=== PATIENT | male | born 1940 | race Caucasian/White ===

== ENCOUNTER 2016-07-10 06:16 | Day surgery (SDC) | payer OTHER, MEDICARE ==
[2016-07-09 11:21] VITALS: BMI 30.7
--- NOTE | 2016-07-09 16:45 | HP ---
- Patient Scheduled date of Surgery: 07/10/16 Scheduled Surgical Procedure: Phacoemulsification and cataract extraction with PCIOL Affected Eye: Left Chief Complaint (Indication for surgery): Decreased vision affecting ADLs (ohtn) - Ocular History Other Eye History: Other Eye Medications: vigamox tid OS, alphagan p bID OU Previous Eye Surgery: none - Medical History Illnesses: Cardiac Disorders (Chest pain, SOB, [place], Valve disease) (s/p CABG), Hypercholesterolemia, Diabetes Current Medications: Ambulatory Orders Aspirin 81 mg PO DAILY 01/09/14 Carvedilol 25 mg PO BID tablet 01/09/14 Insulin Glargine,Hum.rec.anlog [Lantus] 60 unit SQ DAILY vial 01/09/14 Tamsulosin HCl [Flomax] 0.4 mg PO BID 01/09/14 Atorvastatin Ca [Lipitor] 20 mg PO HS 07/09/16 Cyclobenzaprine HCl [Flexeril -] 10 mg PO TID 07/09/16 Docusate Sodium [Stool Softener] 50 mg PO BID 07/09/16 Hydrocodone/Acetaminophen [Vicodin Es 7.5-300 mg Tablet] 1 each PO Q6H PRN 07/09 Insulin Lispro [Humalog] 100 unit SQ DAILY 07/09/16 Lisinopril [Prinivil -] 40 mg PO DAILY 07/09/16 Lorazepam 0.5 mg PO PRN 07/09/16 Polyethylene Glycol 3350 [Miralax (For Daily Use) -] 17 gm PO DAILY PRN Allergies/Adverse Reactions: Allergies Allergy/AdvReac Type Severity Reaction Status Date / Time No Known Allergies Allergy Unverified 01/09/14 12:00 Ocular Examination - Best Corrected Visual Acuity Distance: Right eye: 20/50 Distance: Left eye: 20/50 - External/Slit Lamp Examination Abnormalities: dermatochalais - Intraocular Pressure Intraocular Pressure - Right eye: 16 Intraocular Pressure-Left eye: 16 - Lens Lens: 3+ NS trace PSC - Vitreous/Retina Vitreous/Retina: C:D 0.4 m/v/p wnl - Special Examination M - Right eye: -1.25-1.25 x 105 M - Left eye: -1.75- 2.00 x 075 K - Right eye: 43.25/44/75 x 15 K - Left eye: 43.25/43.75 x 170 AL - Right eye: 23.5o AL - Left eye: 23.72 IOL bag: +20.0d hoya 251 IOL sulcus: +19.0 d hoya 231 IOL AC: +17.0 d MTA 4uo - Impression Impression: Cataract Left Eye - Plan Plan: Phacoemulsification and cataract extraction - IOL Left eye (block due to anxiety) Post-hospital care will be provided in office on: 07/11/16
--- NOTE | 2016-07-09 16:57 | HP ---
History & Physical Update - History History: No Change - Physical Physical: No Change - Assessment Assessment: No Change - Plan Plan: No Change
[~2016-07-10 06:16] MED LIST: ACETAMINOPHEN 325 MG TABLET (FP) PO PRN
[2016-07-10] MEDS ORDERED: CIPROFLOXACIN HCL 0.3% OPHTH 2.5ML BOTTLE OP SCH (06:45)
[2016-07-10] MEDS: PHENYLEPHRINE 2.5% OPHTH SOLN 15 ML BOTTLE ONE ×3 (06:45→07:12)
[2016-07-10] MEDS ORDERED: TROPICAMIDE 1% OPHTH SOLN 15 ML BOTTLE OP SCH (06:45)
[2016-07-10] MEDS: MOXIFLOXACIN HCL 0.5% OPHTHALMIC 3 ML BOTTLE ONE ×3 (06:45→07:11)
[2016-07-10] MEDS ORDERED: DICLOFENAC SODIUM 0.1% OPHTHALMIC 2.5ML BOTTLE OP SCH (06:45)
[2016-07-10] MEDS ORDERED: PHENYLEPHRINE 2.5% OPHTH SOLN 15 ML BOTTLE OP SCH (06:45)
[2016-07-10] MEDS: TROPICAMIDE 1% OPHTH SOLN 15 ML BOTTLE ONE ×3 (06:45→07:12)
[2016-07-10] MEDS: DICLOFENAC SODIUM 0.1% OPHTHALMIC 2.5ML BOTTLE ONE ×3 (06:45→07:11)
[2016-07-10 07:15] VITALS: TEMP 97.8
[2016-07-10] MEDS ORDERED: TOBRAMYCIN/DEXAMETHASONE OPHTH. OINTMENT 1 TUBE ONE (07:20)
[2016-07-10] MEDS ORDERED: LIDOCAINE HCL/PF 1% SDV 5ML VIAL ONE (07:20)
[2016-07-10] MEDS ORDERED: EPINEPHrine/PF 1 MG/1 ML (1:1,000) AMPULE ONE ×2 (07:20→07:49)
[2016-07-10] MEDS ORDERED: BUPIVACAINE HCL/PF 0.75% 10 ML VIAL ONE (07:21)
[2016-07-10] MEDS ORDERED: LIDOCAINE HCL/PF 2% SDV 5ML VIAL ONE ×2 (07:21→07:27)
[2016-07-10] MEDS ORDERED: POVIDONE-IODINE 5% OPHTHALMIC PREP 30 ML SOLUTION ONE (07:21)
[2016-07-10] MEDS ORDERED: PROPOFOL 20 ML ONE ×2 (07:27)
[2016-07-10] MEDS ORDERED: MIDAZOLAM HCL 2 MG/2 ML SINGLE DOSE VIAL ONE (07:27)
[2016-07-10] MEDS ORDERED: BUPIVACAINE HCL/PF 0.75% 10 ML VIAL RB ONE (07:52)
[2016-07-10] MEDS ORDERED: LIDOCAINE HCL/PF 2% SDV 5ML VIAL INF ONE (07:52)
[2016-07-10] MEDS ORDERED: TETRACAINE 0.5% OPHTH SOLN 2 ML BOTTLE OS ONE (07:54)
[2016-07-10] MEDS ORDERED: POVIDONE-IODINE 5% OPHTHALMIC PREP 30 ML SOLUTION OS ONE (07:55)
[2016-07-10] MEDS ORDERED: TETRACAINE 0.5% OPHTH SOLN 2 ML BOTTLE ONE (07:55)
[2016-07-10] MEDS ORDERED: EPINEPHrine/PF 1 MG/1 ML (1:1,000) AMPULE SQ ONE (08:04)
[2016-07-10] MEDS ORDERED: CHONDROITIN SU A/HYALUR SOD 1 KIT IO ONE (08:04)
[2016-07-10] MEDS ORDERED: BSS (NA/CA/MG/K) BALANCED SALT SOLUTION OPHTH SOLN 15 ML BOTTLE OS ONE (08:04)
[2016-07-10] MEDS ORDERED: TOBRAMYCIN/DEXAMETHASONE OPHTH. OINTMENT 1 TUBE OS ONE (08:40)
--- NOTE | 2016-07-10 09:02 | OP ---
Ophthalmology Operative Note Pre-Operative Diagnosis: Cataract Affected Eye: Left Operation: Phacoemulsification and cataract extraction with PCIOL Findings: cataract os Post-Operative Diagnosis: Same as Pre-op Procedure Manager: Jose Anesthesiologist: Tricia Velasquez Anesthesia: Local, Retrobulbar Specimens Removed: none Estimated blood loss: <1 cc Drains & Tubes with Location: none Operative Report Dictated: No
[2016-07-10 12:49] VITALS: PULSE 73
[2016-07-10 12:54] VITALS: BP 134/60
--- NOTE | 2016-07-11 10:15 | OP ---
DATE OF OPERATION: PREOPERATIVE DIAGNOSIS: Cataract left eye. POSTOPERATIVE DIAGNOSIS: Cataract left eye. PROCEDURE: Phacoemulsification and cataract extraction with insertion of posterior chamber intraocular lens, left eye. SURGEON: Brook España MD SOURCING COORDINATOR: None. ANESTHESIA: Retrobulbar block. ANESTHESIOLOGIST: Tricia Velasquez MD OPERATIVE PROCEDURE: Following satisfactory intravenous sedation, the patient received local anesthesia using a 50/50 mixture of lidocaine 2% and Marcaine 0.75%. A Van Lint lid block was delivered to the left eye using 4 mL of the mixture in a retrobulbar injection using 4 mL of the mixture. The patient was then prepped and draped in the usual sterile fashion so as to expose only the left eye. Ophthalmic Betadine was instilled into the inferior fornix, and the lashes were taped out of the surgical field. An eyelid speculum was placed into the left eye. A paracentesis was made in inferior clear cornea at the limbus. Then 1 mL of dilute epinephrine 1:10,000 was injected into the anterior chamber to improve pupillary dilation. Viscoelastic material was then instilled into the anterior chamber via the paracentesis. A 2.4-mm keratome was then used to create the main incision in temporal clear cornea at the limbus. A continuous curvilinear capsulorrhexis was performed using a cystotome and Utrata forceps. Hyrodissection of the lens cortex was performed using BSS on a cannula until the nucleus was noted to be freely rotating. The phacoemulsification tip was then inserted via the main wound and used to sculpt 2 perpendicular grooves into the lens nucleus. Viscoat was injected into other grooves, and a nucleus cracker was used to crack the lens into 4 quadrants. Each quadrant was lifted out of the capsule into the iris plane and individually phacoemulsified. The remaining cortical material was then aspirated using the irrigation and aspiration port. The capsular bag was inflated using Provisc, and a preloaded Hoya lens model 251, power +20.0 was injected into the capsular bag, and it was centered using a Sinskey hook. The residual viscoelastic material was removed from the anterior chamber using irrigation and aspiration. The wound edges were hydrated using BSS. The wound was tested for leakage. It was found to be watertight. Therefore, Tobradex ointment was placed into the eye, and a speculum was removed from the eye, and the eyelid was closed. A sterile dressing and shield were placed over the eye, and the patient was transferred to the recovery room in stable condition and told to follow up in 1 day. BROOK ESPAÑA M.D. [id number]
== END 2016-07-10 10:30 | disposition home or self-care (01) ==
LOC: JASU-SURG 06:16
PROVIDERS: ATTEND Ophthalmology
PROC: 08RK3JZ Replacement of Left Lens with Synthetic Substitute, Percutaneous Approach (ICD-10-PCS; principal; 2016-07-10 07:30)
DX: H26.9 Unspecified cataract (principal)

== ENCOUNTER 2016-12-04 06:12 | Day surgery (SDC) | payer OTHER, MEDICARE ==
[2016-12-02 12:50] VITALS: BMI 30.7
--- NOTE | 2016-12-03 13:18 | HP ---
- Patient Scheduled date of Surgery: 12/04/16 Scheduled Surgical Procedure: Phacoemulsification and cataract extraction with PCIOL Affected Eye: Right Chief Complaint (Indication for surgery): Decreased vision affecting ADLs - Ocular History Other Eye History: Other (OHTN) Eye Medications: alphagan p , vigamox , ilevro Previous Eye Surgery: s/p ce/cpiol +20.o hoya block - Medical History Illnesses: Cardiac Disorders (Chest pain, SOB, [place], Valve disease) (s/p CABG, BPH ), Hypercholesterolemia, Diabetes Current Medications: Ambulatory Orders Aspirin 81 mg PO DAILY 01/09/14 Carvedilol 25 mg PO BID tablet 01/09/14 Insulin Glargine,Hum.rec.anlog [Lantus] 60 unit SQ DAILY vial 01/09/14 Tamsulosin HCl [Flomax] 0.4 mg PO BID 01/09/14 Atorvastatin Ca [Lipitor] 20 mg PO HS 07/09/16 Cyclobenzaprine HCl [Flexeril -] 10 mg PO TID 07/09/16 Docusate Sodium [Stool Softener] 50 mg PO BID 07/09/16 Hydrocodone/Acetaminophen [Vicodin Es 7.5-300 mg Tablet] 1 each PO Q6H PRN 07/09 Insulin Lispro [Humalog] 100 unit SQ DAILY 07/09/16 Lisinopril [Prinivil -] 40 mg PO DAILY 07/09/16 Lorazepam 0.5 mg PO PRN 07/09/16 Allergies/Adverse Reactions: Allergies Allergy/AdvReac Type Severity Reaction Status Date / Time No Known Allergies Allergy Unverified 12/02/16 12:32 Ocular Examination - Best Corrected Visual Acuity Distance: Right eye: 20/50 Distance: Left eye: 20/20 - External/Slit Lamp Examination Abnormalities: dermaotchalasis - Intraocular Pressure Intraocular Pressure - Right eye: 24 Intraocular Pressure-Left eye: 24 - Lens Lens: 3+ NS 1+ psc - Vitreous/Retina Vitreous/Retina: c:D 0.4 m/v/p wnl - Special Examination M - Right eye: -1.25-1.25 x 105 M - Left eye: plano -o.75 x 070 K - Right eye: 43.25/44 x 015 K - Left eye: 43.0 /43.5 x 160 AL - Right eye: 23.5 AL - Left eye: 23.72 IOL bag: +20.50 IOL sulcus: +19.50 IOL AC: +17.0 mta 4uo - Impression Impression: Cataract Right Eye - Plan Plan: Phacoemulsification and cataract extraction - IOL Right eye Post-hospital care will be provided in office on: 12/05/16
--- NOTE | 2016-12-03 13:44 | HP ---
History & Physical Update - History History: No Change - Physical Physical: No Change - Assessment Assessment: No Change - Plan Plan: No Change
[~2016-12-04 06:12] MED LIST changes: +TOBRAMYCIN/DEXAMETHASONE OPHTH. OINTMENT 1 TUBE OD ONE
[2016-12-04] MEDS ORDERED: PHENYLEPHRINE 2.5% OPHTH SOLN 15 ML BOTTLE ONE (06:35)
[2016-12-04] MEDS ORDERED: TROPICAMIDE 1% OPHTH SOLN 15 ML BOTTLE ONE (06:35)
[2016-12-04] MEDS ORDERED: CIPROFLOXACIN 0.3% EYE DROPS 5 ML BOTTLE ONE (06:35)
[2016-12-04] MEDS ORDERED: DICLOFENAC SODIUM 0.1% OPHTHALMIC 2.5ML BOTTLE ONE (06:35)
[2016-12-04 06:42] VITALS: TEMP 97.8
[2016-12-04] MEDS ORDERED: TROPICAMIDE 1% OPHTH SOLN 15 ML BOTTLE OP SCH (06:45)
[2016-12-04] MEDS ORDERED: PHENYLEPHRINE 2.5% OPHTH SOLN 15 ML BOTTLE OP SCH (06:45)
[2016-12-04] MEDS ORDERED: DICLOFENAC SODIUM 0.1% OPHTHALMIC 2.5ML BOTTLE OP SCH (06:45)
[2016-12-04] MEDS ORDERED: CIPROFLOXACIN HCL 0.3% OPHTH 2.5ML BOTTLE OP SCH (06:45)
[2016-12-04] MEDS ORDERED: TOBRAMYCIN/DEXAMETHASONE OPHTH. OINTMENT 1 TUBE ONE (07:04)
[2016-12-04] MEDS ORDERED: LIDOCAINE HCL/PF 1% SDV 5ML VIAL ONE (07:04)
[2016-12-04] MEDS ORDERED: EPINEPHrine/PF 1 MG/1 ML (1:1,000) AMPULE ONE (07:05)
[2016-12-04] MEDS ORDERED: LIDOCAINE HCL/PF 2% SDV 5ML VIAL ONE ×2 (07:19→07:29)
[2016-12-04] MEDS ORDERED: BUPIVACAINE HCL/PF 0.75% 10 ML VIAL ONE (07:19)
[2016-12-04] MEDS ORDERED: PROPOFOL 20 ML ONE ×2 (07:29)
[2016-12-04] MEDS ORDERED: MIDAZOLAM HCL 2 MG/2 ML SINGLE DOSE VIAL ONE (07:29)
[2016-12-04] MEDS ORDERED: LIDOCAINE HCL 2% (50ML VIAL) INF ONE (07:47)
[2016-12-04] MEDS ORDERED: BUPIVACAINE HCL/PF 0.75% 10 ML VIAL RB ONE (07:47)
[2016-12-04] MEDS ORDERED: BSS (NA/CA/MG/K) BALANCED SALT SOLUTION OPHTH SOLN 15 ML BOTTLE OD ONE (08:00)
[2016-12-04] MEDS ORDERED: CHONDROITIN SU A/HYALUR SOD 1 KIT IO ONE (08:00)
[2016-12-04] MEDS ORDERED: EPINEPHrine/PF 1 MG/1 ML (1:1,000) AMPULE SQ ONE ×2 (08:00→08:11)
[2016-12-04] MEDS ORDERED: TETRACAINE 0.5% OPHTH SOLN 2 ML BOTTLE OD ONE (08:00)
[2016-12-04] MEDS ORDERED: TOBRAMYCIN/DEXAMETHASONE OPHTH. OINTMENT 1 TUBE OD ONE (08:25)
--- NOTE | 2016-12-04 08:37 | OP ---
Ophthalmology Operative Note Pre-Operative Diagnosis: Cataract Affected Eye: Right Operation: Excision of Pterygium Findings: cataract right eye Post-Operative Diagnosis: Same as Pre-op Multigraph Operator: None Anesthesiologist: Tricia Velasquez Anesthesia: Local, Retrobulbar Specimens Removed: none Estimated blood loss: <1 cc Drains & Tubes with Location: none Operative Report Dictated: Yes
[2016-12-04 09:30] VITALS: BP 132/68; PULSE 88
--- NOTE | 2016-12-06 14:13 | OP ---
DATE OF OPERATION: 12/04/2016 PREOPERATIVE DIAGNOSIS: Cataract, right eye. POSTOPERATIVE DIAGNOSIS: Cataract, right eye. PROCEDURE: Phacoemulsification and cataract extraction with insertion of posterior chamber intraocular lens, right eye. SURGEON: Brook España MD SOCIAL SERVICES DIRECTOR: None. ANESTHESIA: Retrobulbar block. ANESTHESIOLOGIST: Tricia Velasquez MD OPERATIVE PROCEDURE: Following satisfactory intravenous sedation, the patient received local anesthesia using a 50/50 mixture of lidocaine 2% and Marcaine 0.75%. A Van Lint lid block was delivered to the right eye using 4 mL of the mixture in a retrobulbar injection using 4 mL of the mixture. The patient was then prepped and draped in the usual sterile fashion so as to expose only the right eye. Ophthalmic Betadine was instilled into the inferior fornix, and the lashes were taped out of the surgical field. An eyelid speculum was placed into the right eye. A paracentesis was made in superotemporal clear cornea at the limbus. Then, 1 mL of dilute epinephrine 1:10,000 was injected into the anterior chamber to improve pupillary dilation. Viscoelastic material was instilled in the anterior chamber via the paracentesis. A 2.4-mm keratome was then used to create the main incision in temporal clear cornea at the limbus. A continuous curvilinear capsulorrhexis was performed using a cystotome and Utrata forceps. Hydrodissection of the lens cortex was performed using BSS on a cannula until the nucleus was noted to be freely rotating. The phacoemulsification tip was then inserted via the main wound and used to sculpt 2 perpendicular grooves into the lens nucleus. The nucleus was cracked into 4 instruments, and each quadrant was lifted out of the capsule into the iris plane and individually phacoemulcified. The remaining cortical material was then aspirated using the irrigation and aspiration port. The capsular bag was inflated using Provisc and a preloaded Hoya lens, power +20.5 diopters was injected into the capsular bag and centered using a Sinskey hook. The residual viscoelastic material was removed from the anterior chamber using irrigation and aspiration. The wound edges were hydrated using BSS. The wound was tested for leakage. It was found to be watertight. Therefore, TobraDex ointment was placed in the eye, the speculum was removed from the eye, and the eyelid was closed. A sterile dressing and shield were placed over the eye, and the patient was transferred to the recovery room in stable condition, told to follow up in 1 day. BROOK ESPAÑA M.D. [id number]
== END 2016-12-04 09:41 | disposition home or self-care (01) ==
LOC: JASU-SURG 06:12
PROVIDERS: ATTEND Ophthalmology
PROC: 08RJ3JZ Replacement of Right Lens with Synthetic Substitute, Percutaneous Approach (ICD-10-PCS; principal; 2016-12-04 07:30)
DX: H26.9 Unspecified cataract (principal)

== ENCOUNTER 2019-02-28 16:49 | Inpatient (IN) | payer OTHER, MEDICARE ==
[2019-02-28 18:04] LABS: BASO % 1.3 % (0-2.0); EOS % 0.1 % (0-4.5); HEMATOCRIT 41.7 % (35.4-49); HEMOGLOBIN 13.8 GM/dL (11.7-16.9); LYMPH % 20.8 % (8-40); MCH 29.7 pg (25.7-33.7); MCHC 33.2 g/dl (32.0-35.9); MEAN CELL VOLUME 89.4 fl (80-96); MEAN PLT VOLUME 9.8 fl (7.5-11.1); MONO % 5.5 % (3.8-10.2); NEUT % 72.3 % (42.8-82.8); PLATELET COUNT 297 K/MM3 (134-434); RBC 4.66 M/mm3 (4.00-5.60); RDW 13.7 % (11.9-15.9); WHITE BLOOD COUNT 9.9 K/mm3 (4.0-10.0)
[2019-02-28] MEDS ORDERED: ASPIRIN 81 MG CHEWABLE TABLETS PO ONE (18:16)
--- NOTE | 2019-02-28 18:17 | PDOC ---
History of Present Illness - General Chief Complaint: Irregular Heart Beat Stated Complaint: Cardiac Dysrhythmia Time Seen by Provider: 02/28/19 17:25 History Source: Patient - History of Present Illness Initial Comments: 02/28/19 18:12 79 yo M PMH unspecified cardiac arrhythmia, HTN, HLD, CAD s/p triple bypass, IDDM, COPD, CHF, presenting with SOB. Patient is poor historian. States that he has been feeling increasingly SOB over the last month, went to see his PCP Dr. Nguyen to get refill of home nebulizer treatment. Reportedly was "pale and the oxygen level in my blood was off", leading to patient being sent to the ED. Specifically denies CP, N/V, dizziness, abdominal pain, diaphoresis, fevers/ chills. Does state that he has had increased swelling in his legs, L>R, but this has been present over the past month. Reportedly scanned and without clot, however, patient does not remember last time this was checked. Past History - Past Medical History Allergies/Adverse Reactions: Allergies Allergy/AdvReac Type Severity Reaction Status Date / Time No Known Allergies Allergy Unverified 02/28/19 17:02 Home Medications: Ambulatory Orders Aspirin 81 mg PO DAILY 01/09/14 Carvedilol 25 mg PO BID tablet 01/09/14 Insulin Glargine,Hum.rec.anlog [Lantus] 60 unit SQ DAILY vial 01/09/14 Tamsulosin HCl [Flomax] 0.4 mg PO BID 01/09/14 Atorvastatin Ca [Lipitor] 20 mg PO HS 07/09/16 Cyclobenzaprine HCl [Flexeril -] 10 mg PO TID 07/09/16 Hydrocodone/Acetaminophen [Vicodin Es 7.5-300 mg Tablet] 1 each PO Q6H PRN 07/09 Insulin Lispro [Humalog] 50 unit SQ DAILY 07/09/16 Lisinopril [Prinivil -] 40 mg PO DAILY 07/09/16 Tiotropium [place] [Spiriva] 18 mcg IH BID 02/28/19 Anemia: No Asthma: No Cancer: No (CAD) Cardiac Disorders: Yes (TRIPLE BYPASS SURGERY 2005) CVA: No COPD: No CHF: No Dementia: No Diabetes: Yes (IDDM) GI Disorders: No Disorders: No HTN: No Hypercholesterolemia: No Liver Disease: No Seizures: No Thyroid Disease: No - Surgical History Cardiac Surgery: Yes (OPEN HEART SURGERY) - Immunization History Immunization Up to Date: Yes - Psycho Social/Smoking Cessation Hx Smoking History: Former smoker Have you smoked in the past 12 months: No If you are a former smoker, when did you quit?: 50 yrs ago Information on smoking cessation initiated: No Hx Alcohol Use: No Drug/Substance Use Hx: No Substance Use Type: None *Physical Exam - Vital Signs Last Vital Signs Temp Pulse Resp BP Pulse Ox 98.2 F 92 H 21 H 122/57 L 95 02/28/19 17:10 02/28/19 17:10 02/28/19 17:10 02/28/19 17:10 02/28/19 17:15 ED Treatment Course - LABORATORY CBC & Chemistry Diagram: 02/28/19 17:30 02/28/19 17:30 - RADIOLOGY Radiology Studies Ordered: Category Date Time Status CHEST X-RAY PORTABLE* [RAD] Stat Radiology 02/28/19 17:41 Ordered DUPLEX VASCUL US-2LEGS [US] Stat Ultrasound 02/28/19 17:41 Ordered Medical Decision Making - Medical Decision Making 02/28/19 17:30 Patient with multiple risk factors here with SOB. Concerning for ACS v COPD exacerbation v CHF exacerbation. - CBC, CMP - EKG, trop, pro BNP - CXR - coags - likely admit EKG at 89 bpm, sinus rhythm at frequent PVCs, appears to have prior inferior MN. 02/28/19 18:[address] Akins at [facility], EKG at PCP office reportedly concerning for old inferior wall MN, poor R wave progression, potentially ventricular bigeminy, normal sinus with multiple PVCs. PCP recorded patient as being hypoxic , pale, cyanotic, started on 3L NC with improvement. SOB without CP. 02/28/19 20:02 CXR elevated R hemidiaphragm, R infiltrate. US without DVT in either leg. 02/28/19 20:22 Elevated BNP, will give 40mg IV Lasix, get admitted for SOB and CHF exacerbation. 02/28/19 20:[address] Jacobsen, will get patient admitted under Dr. Primo Jacobsen. Discharge - Discharge Information Problems reviewed: Yes Clinical Impression/Diagnosis: SOB (shortness of breath), CHF exacerbation Condition: Guarded - Admission Yes - Follow up/Referral Referrals: Howard Nguyen MD [Primary Care Provider] - - Patient Discharge Instructions - Post Discharge Activity
[2019-02-28 18:25] LABS: INR 1.26 (0.83-1.09); PROTHROMBIN TIME (PATIENT) 14.9 SEC (9.7-13.0)
[2019-02-28 18:28] LABS: ACTIVATED PTT 33.9 SECONDS (25.2-36.5)
[2019-02-28 18:54] LABS: ALBUMIN 3.3 g/dl (3.4-5.0); ALK PHOS 95 U/L (45-117); ANION GAP 5 MMOL/L (8-16); BILIRUBIN,TOTAL 0.9 mg/dL (0.2-1); BLOOD UREA NITROGEN 15.7 mg/dL (7-18); CALCIUM 8.1 mg/dL (8.5-10.1); CHLORIDE 104 mmol/L (98-107); CO2 28 mmol/L (21-32); CREATININE 1.1 mg/dL (0.55-1.3); GLUCOSE,RANDOM 98 mg/dL (74-106); MAGNESIUM 2.1 mg/dL (1.8-2.4); PHOSPHOROUS 3.3 mg/dL (2.5-4.9); POTASSIUM 4.7 mmol/L (3.5-5.1); SGOT/AST 21 U/L (15-37); SGPT/ALT 26 U/L (13-61); SODIUM 137 mmol/L (136-145)
[2019-02-28] MEDS ORDERED: ASPIRIN 81 MG CHEWABLE TABLETS ONE (19:01)
--- NOTE | 2019-02-28 19:24 | PDOC ---
Attending Attestation - Resident Resident Name: Haroldo Oliva - ED Attending Attestation I have performed the following: I have examined & evaluated the patient, The case was reviewed & discussed with the resident, I agree w/resident's findings & plan, Exceptions are as noted - HPI HPI: 02/28/19 19:21 79 yo male h/o HTN, HLD, CAD cabg IDDM, COPD, here with c/o palpitations. pt was seen by his primary doctor and sent for evaluation for irregularity, possible afib. denies cp but does report sob. has had worsening leg edema. no mod factors. 02/28/19 19:21 - Physicial Exam PE: 02/28/19 19:20 awake alert lungs clear bilat heart irreg reg, abd soft nt nd ext wwp no edema. nuero alert oriente d x 3. 02/28/19 19:20 02/28/19 19:21 - Medical Decision Making 02/28/19 19:22 79 yo male h/o htn hld copd, cabg cad, here with palpitations and sob. worsening leg edema. plan las bnp ekg cxr trop . will likley require admission to telemetry. pt EKG with bigeminyk, trigeminy. no st t wave changes. labs pending. signed out to oncoming physician, will admit. aspirin 02/28/19 19:24 bilat dopplers ordered r/o dvt. were negative. Heart Score/ECG Review #1 General ECG Interpretation: Sinus Rhythm, Normal Intervals, No acute ischemic changes Compared to previous ECG there are: Other (bigeminy, trigeminy frequent pvc. TWI III, AF.)
[2019-02-28] MEDS ORDERED: FUROSEMIDE 40 MG/4 ML INJECTABLE VIAL IVPUSH ONE (19:58)
[2019-02-28] MEDS ORDERED: FUROSEMIDE 40 MG/4 ML INJECTABLE VIAL ONE (20:08)
--- NOTE | 2019-02-28 21:50 | HP ---
Admitting History and Physical - Primary Care Physician PCP: Dr. Jacobsen - Admission Chief Complaint: Irregular heart beat, SOB History of Present Illness: 79 year old male with PMH of unspecified cardiac arrhythmia, HTN, HLD, CAD s/p triple bypass, IDDM, COPD, CHF arrived to ED with complain SOB, as per patient SOB has been getting worse over the course of month, went to see PCP, Dr. Akins at [facility], EKG at PCP office reportedly concerning for old inferior wall AK, poor R wave progression, potentially ventricular bigeminy, normal sinus with multiple PVCs. Patient at clinic became hypoxic, pale, cyanotic, started on 3L NC with improvement. Patient denies CP, N/V, dizziness, headache, abdominal pain, diaphoresis, fevers/chills. History Source: Patient Limitations to Obtaining History: No Limitations - Past Medical History Cardiovascular: Yes: CAD (s/p triple bypass,), CHF, HTN, Hyperlipdemia, Other ( cardiac arrhythmia) Pulmonary: Yes: COPD Renal/: Yes: BPH Endocrine: Yes: Diabetes Mellitus - Past Surgical History Past Surgical History: Yes: Bypass (TRIPLE BYPASS SURGERY 2005) - Smoking History Smoking history: Former smoker Have you smoked in the past 12 months: No If you are a former smoker, when did you quit?: 50 yrs ago - Alcohol/Substance Use Hx Alcohol Use: No History of Substance Use: reports: None - Social History ADL: Independent History of Recent Travel: No Home Medications - Allergies Allergies/Adverse Reactions: Allergies Allergy/AdvReac Type Severity Reaction Status Date / Time No Known Allergies Allergy Unverified 02/28/19 17:02 - Home Medications Home Medications: Ambulatory Orders Aspirin 81 mg PO DAILY 01/09/14 Carvedilol 25 mg PO BID tablet 01/09/14 Insulin Glargine,Hum.rec.anlog [Lantus] 60 unit SQ DAILY vial 01/09/14 Tamsulosin HCl [Flomax] 0.4 mg PO BID 01/09/14 Atorvastatin Ca [Lipitor] 20 mg PO HS 07/09/16 Cyclobenzaprine HCl [Flexeril -] 10 mg PO TID 07/09/16 Hydrocodone/Acetaminophen [Vicodin Es 7.5-300 mg Tablet] 1 each PO Q6H PRN 07/09 Insulin Lispro [Humalog] 50 unit SQ DAILY 07/09/16 Lisinopril [Prinivil -] 40 mg PO DAILY 07/09/16 Tiotropium [place] [Spiriva] 18 mcg IH BID 02/28/19 Family Medical History Family Hx Cardiac Disorders: Father (h/o [place]) Family Hx Nuerologic Problems: Mother ([place] ) Review of Systems - Review of Systems Constitutional: reports: No Symptoms Eyes: reports: No Symptoms HENT: reports: No Symptoms Neck: reports: No Symptoms Cardiovascular: reports: No Symptoms Respiratory: reports: SOB, SOB on Exertion Gastrointestinal: reports: No Symptoms Genitourinary: reports: No Symptoms Musculoskeletal: reports: No Symptoms Integumentary: reports: No Symptoms Neurological: reports: No Symptoms Endocrine: reports: No Symptoms Hematology/Lymphatic: reports: No Symptoms Psychiatric: reports: No Symptoms Physical Examination Vital Signs: Vital Signs Temperature 98.2 F 02/28/19 17:10 Pulse Rate 90 02/28/19 20:00 Respiratory Rate 21 H 02/28/19 17:10 Blood Pressure 125/60 02/28/19 20:00 O2 Sat by Pulse Oximetry (%) 95 02/28/19 17:15 Constitutional: Yes: Calm, Mild Distress Eyes: Yes: Conjunctiva Clear, EOM Intact HENT: Yes: Atraumatic, Normocephalic Neck: Yes: Supple, Trachea Midline Cardiovascular: Yes: Pulse Irregular, S1 Respiratory: Yes: Regular, On Nasal O2, Rales, SOB Gastrointestinal: Yes: Normal Bowel Sounds, Soft Musculoskeletal: Yes: WNL Edema: No Peripheral Pulses WNL: Yes Neurological: Yes: Alert, Oriented Labs: CBC, BMP 02/28/19 17:30 02/28/19 17:30 Imaging - Results Chest X-ray: Report Reviewed (CXR elevated R hemidiaphragm, R infiltrate.) Ultrasound: Report Reviewed (US B/l LE: without DVT .) EKG: Report Reviewed (EKG at PCP office reportedly concerning for old inferior wall AK, poor R wave progression, potentially ventricular bigeminy, normal sinus with multiple PVCs. EKG at 89 bpm, sinus rhythm at frequent PVCs, appears to have prior inferior AK. Trop: negative) Other: Report Reviewed (BNP:6583.6) Problem List - Problems (1) Acute CHF Code(s): I50.9 - HEART FAILURE, UNSPECIFIED (2) SOB (shortness of breath) Code(s): R06.02 - SHORTNESS OF BREATH (3) HTN (hypertension) Code(s): I10 - ESSENTIAL (PRIMARY) HYPERTENSION (4) HLD (hyperlipidemia) Code(s): E78.5 - HYPERLIPIDEMIA, UNSPECIFIED (5) Cardiac arrhythmia Code(s): I49.9 - CARDIAC ARRHYTHMIA, UNSPECIFIED (6) CAD (coronary artery disease) Code(s): I25.10 - ATHSCL HEART DISEASE OF [place] CORONARY ARTERY W/O ANG PCTRS (7) Diabetes Code(s): E11.9 - TYPE 2 DIABETES MELLITUS WITHOUT COMPLICATIONS (8) COPD (chronic obstructive pulmonary disease) Code(s): J44.9 - CHRONIC OBSTRUCTIVE PULMONARY DISEASE, UNSPECIFIED Assessment/Plan 79 year old male with PMH of unspecified cardiac arrhythmia, HTN, HLD, CAD s/p triple bypass, IDDM, COPD, CHF arrived to ED with complain SOB, as per patient SOB has been getting worse over the course of month,went to PMD who sent to ED for further evaluation. # ACUTE CHF exacerbation -CXR elevated R hemidiaphragm, R infiltrate. -US b/l LE: without DVT -Elevated BNP:6583.6 -In ED:given 40mg IV Lasix - continue with O2 via NC - Fluids restriction - Monitor I & O - continue with lasix 40 mg IV push daily - follow up cardiology in AM #cardiac arrhythmia # HTN, HLD, CAD s/p triple bypas - EKG at PCP office reportedly concerning for old inferior wall [place], poor R wave progression, potentially ventricular bigeminy, normal sinus with multiple PVCs. - At hospital EKG at 89 bpm, sinus rhythm at frequent PVCs, appears to have prior inferior AK. - tele monitoring - Carvedilol 25 mg PO BID - Lisinopril 40 mg PO DAILY - Atorvastatin Ca 20 mg PO HS - monitor BP/HR closely #DM -monitor FSBS TID AC -coverage with Novolog sliding scale -continue with Levemir 30 units at HS # COPD - Tiotropium [place] 18 mcg IH BID # BPH - Tamsulosin HCl 0.4 mg PO BID Visit type - Emergency Visit Emergency Visit: Yes ED Registration Date: 02/28/19 Care time: The patient presented to the Emergency Department on the above date and was hospitalized for further evaluation of their emergent condition. - New Patient This patient is new to me today: Yes Date on this admission: 02/28/19 - Critical Care Critical Care patient: No
[2019-02-28] MEDS ORDERED: PATIENT'S OWN MEDICATION (NON-FORMULARY) (Hydrocodone/Acetaminophen [Vicodin Es 7.5-300 Mg PO PRN (22:34)
[2019-02-28] MEDS ORDERED: ACETAMINOPHEN 325 MG TABLET (FP) PO PRN (22:35)
[2019-03-01] MEDS ORDERED: CYCLOBENZAPRINE HCL 10 MG TABLET (FP) ONE (06:32)
[2019-03-01] MEDS: CYCLOBENZAPRINE HCL 10 MG TABLET (FP) PO SCH ×3 (06:40→21:04)
[2019-03-01 06:42] LABS: HEMATOCRIT 41.1 % (35.4-49); HEMOGLOBIN 14.1 GM/dL (11.7-16.9); MCH 30.5 pg (25.7-33.7); MCHC 34.4 g/dl (32.0-35.9); MEAN CELL VOLUME 88.8 fl (80-96); MEAN PLT VOLUME 9.8 fl (7.5-11.1); PLATELET COUNT 266 K/MM3 (134-434); RBC 4.63 M/mm3 (4.00-5.60); RDW 13.7 % (11.9-15.9); WHITE BLOOD COUNT 9.7 K/mm3 (4.0-10.0)
[2019-03-01] MEDS: INSULIN SLIDING SCALE (NOVOLOG) 1 VIAL SQ SCH ×3 (07:01→17:08)
[2019-03-01 07:10] LABS: BLOOD UREA NITROGEN 14.1 mg/dL (7-18); CALCIUM 8.8 mg/dL (8.5-10.1)
[2019-03-01] MEDS ORDERED: TAMSULOSIN HCL 0.4 MG CAP PO SCH (08:30)
[2019-03-01] MEDS ORDERED: CARVEDILOL 25 MG TABLET (FP) PO SCH (10:00)
[2019-03-01] MEDS ORDERED: TIOTROPIUM BROMIDE 2.5 MCG (SPIRIVA) RESPIMAT INHALER IH SCH (10:00)
[2019-03-01] MEDS ORDERED: LISINOPRIL 20 MG TABLET (FP) PO SCH (10:00)
[2019-03-01] MEDS ORDERED: FUROSEMIDE 40 MG/4 ML INJECTABLE VIAL IVPUSH SCH (10:00)
[2019-03-01] MEDS ORDERED: HEPARIN NA (PORCINE) 5,000 UNITS/ML 1ML VIAL SQ SCH (10:00)
--- NOTE | 2019-03-01 10:43 | PN ---
Progress Note (short form) - Note Progress Note: pt examined in ER no distress feels well after lasix Vital Signs - 24 hr 02/28/19 02/28/19 02/28/19 17:00 17:10 17:15 Temperature 97.9 F 98.2 F Pulse Rate 66 Pulse Rate [ 92 H Left Radial] Respiratory 20 21 H Rate Blood Pressure 139/60 Blood Pressure 122/57 L [Right Arm] O2 Sat by Pulse 91 L 88 L 95 Oximetry (%) 02/28/19 02/28/19 03/01/19 20:00 22:35 06:30 Temperature Pulse Rate Pulse Rate [ 90 88 Left Radial] Respiratory 20 Rate Blood Pressure Blood Pressure 125/60 125/62 [Right Arm] O2 Sat by Pulse 95 Oximetry (%) Current Medications Generic Name Dose Route Start Last Admin Trade Name Freq PRN Reason Stop Dose Admin Acetaminophen 650 mg 02/28/19 22:35 Tylenol - PO Q4H PRN PAIN OR FEVER Atorvastatin Calcium 20 mg 03/01/19 22:00 Lipitor - PO HS [facility] Carvedilol 25 mg 03/01/19 10:00 Coreg - PO BID [facility] Cyclobenzaprine HCl 10 mg 03/01/19 06:00 03/01/19 06:40 Flexeril - PO 10 mg TID [facility] Administration Furosemide 40 mg 03/01/19 10:00 Lasix Injection - IVPUSH DAILY [facility] Heparin Sodium (Porcine) 5,000 unit 03/01/19 22:00 Heparin - SQ BID [facility] Insulin Aspart 1 vial 03/01/19 07:00 03/01/19 07:01 Novolog Vial Sliding Scale - SQ Not Given TIDAC [facility] Protocol Insulin Detemir 30 units 03/01/19 22:00 Levemir Vial SQ HS [facility] Lisinopril 40 mg 03/01/19 10:00 Prinivil PO DAILY [facility] Tamsulosin HCl 0.4 mg 03/01/19 08:30 03/01/19 08:39 Flomax - PO 0.4 mg Q12H [facility] Administration Tiotropium [place] 2 puff 03/01/19 10:00 Spiriva Respimat IH DAILY [facility] Laboratory Results - last 24 hr 02/28/19 02/28/19 02/28/19 17:30 17:30 17:30 WBC 9.9 RBC 4.66 Hgb 13.8 Hct 41.7 MCV 89.4 MCH 29.7 MCHC 33.2 RDW 13.7 Plt Count 297 MPV 9.8 Absolute Neuts (auto) 7.2 Neutrophils % 72.3 Lymphocytes % 20.8 Monocytes % 5.5 Eosinophils % 0.1 Basophils % 1.3 Nucleated RBC % 0 PT with INR 14.90 H INR 1.26 H PTT (Actin FS) 33.9 Sodium 137 Potassium 4.7 Chloride 104 Carbon Dioxide 28 Anion Gap 5 L BUN 15.7 Creatinine 1.1 Est GFR (CKD-EPI)AfAm 73.09 Est GFR (CKD-EPI)NonAf 63.07 POC Glucometer Random Glucose 98 Calcium 8.1 L Phosphorus 3.3 Magnesium 2.1 Total Bilirubin 0.9 AST 21 ALT 26 Alkaline Phosphatase 95 Troponin I < 0.02 B-Natriuretic Peptide Total Protein 6.0 L Albumin 3.3 L 02/28/19 02/28/19 02/28/19 17:30 18:16 22:50 WBC RBC Hgb Hct MCV MCH MCHC RDW Plt Count MPV Absolute Neuts (auto) Neutrophils % Lymphocytes % Monocytes % Eosinophils % Basophils % Nucleated RBC % PT with INR INR PTT (Actin FS) Sodium Potassium Chloride Carbon Dioxide Anion Gap BUN Creatinine Est GFR (CKD-EPI)AfAm Est GFR (CKD-EPI)NonAf POC Glucometer 74 179 Random Glucose Calcium Phosphorus Magnesium Total Bilirubin AST ALT Alkaline Phosphatase Troponin I B-Natriuretic Peptide 6583.6 H Total Protein Albumin 03/01/19 03/01/19 03/01/19 04:43 06:11 06:11 WBC 9.7 RBC 4.63 Hgb 14.1 Hct 41.1 MCV 88.8 MCH 30.5 MCHC 34.4 RDW 13.7 Plt Count 266 MPV 9.8 Absolute Neuts (auto) Neutrophils % Lymphocytes % Monocytes % Eosinophils % Basophils % Nucleated RBC % PT with INR INR PTT (Actin FS) Sodium 138 Potassium 4.0 Chloride 103 Carbon Dioxide 26 Anion Gap 8 BUN 14.1 Creatinine 1.0 Est GFR (CKD-EPI)AfAm 82.02 Est GFR (CKD-EPI)NonAf 70.77 POC Glucometer 113 Random Glucose 99 Calcium 8.8 Phosphorus Magnesium Total Bilirubin AST ALT Alkaline Phosphatase Troponin I B-Natriuretic Peptide Total Protein Albumin 03/01/19 03/01/19 06:37 12:12 WBC RBC Hgb Hct MCV MCH MCHC RDW Plt Count MPV Absolute Neuts (auto) Neutrophils % Lymphocytes % Monocytes % Eosinophils % Basophils % Nucleated RBC % PT with INR INR PTT (Actin FS) Sodium Potassium Chloride Carbon Dioxide Anion Gap BUN Creatinine Est GFR (CKD-EPI)AfAm Est GFR (CKD-EPI)NonAf POC Glucometer 94 171 Random Glucose Calcium Phosphorus Magnesium Total Bilirubin AST ALT Alkaline Phosphatase Troponin I B-Natriuretic Peptide Total Protein Albumin Assessment/Plan 79 year old male with PMH of unspecified cardiac arrhythmia, HTN, HLD, CAD s/p triple bypass, IDDM, COPD, CHF arrived to ED with complain SOB, as per patient SOB has been getting worse over the course of month,went to PMD who sent to ED for further evaluation. # ACUTE CHF exacerbation -CXR elevated R hemidiaphragm, R infiltrate. -US b/l LE: without DVT -Elevated BNP:6583.6 -In ED:given 40mg IV Lasix - continue with O2 via NC - Fluids restriction - Monitor I & O - continue with lasix 40 mg IV push daily - follow up cardiology in AM #cardiac arrhythmia # HTN, HLD, CAD s/p triple bypas - EKG at PCP office reportedly concerning for old inferior wall PA, poor R wave progression, potentially ventricular bigeminy, normal sinus with multiple PVCs. - At hospital EKG at 89 bpm, sinus rhythm at frequent PVCs, appears to have prior inferior PA. - tele monitoring - Carvedilol 25 mg PO BID - Lisinopril 40 mg PO DAILY - Atorvastatin Ca 20 mg PO HS - monitor BP/HR closely #DM -monitor FSBS TID AC -coverage with Novolog sliding scale -continue with Levemir 30 units at HS # COPD - Tiotropium [place] 18 mcg IH BID # BPH - Tamsulosin HCl 0.4 mg PO BID
--- NOTE | 2019-03-01 12:05 | CON.CARD ---
Consult Consult Specialty:: Cardiology Referred by:: Medicine Reason for Consultation:: CHF - History of Present Illness Chief Complaint: shortness of breath History of Present Illness: 79M h/o CAD s/p MS, CABG 2003 (BECKHAM to LAD, SVG to LCX, SVG to PDA), HTN, HLD, DM p/w shortness of breath, abnormal EKG. Reportedly had chornic dyspnea on exertion which is worse in the last month. Sees Dr. Herrera for cardio. Saw PCP yesterday, EKG showed old MS, bigeminy, frequent PVCs. At office looked hypoxic, pale, started on O2 and sent to ER. Received IV lasix, feeling better. Also has lower ext edema, not sure how long. - Past Medical History Cardio/Vascular: Yes: CAD (s/p triple bypass,), CHF, HTN, Hyperlipdemia, Other ( cardiac arrhythmia) Pulmonary: Yes: COPD Renal/: Yes: BPH Endocrine: Yes: Diabetes Mellitus - Past Surgical History Past Surgical History: Yes: Bypass (TRIPLE BYPASS SURGERY 2005) - Alcohol/Substance Use Hx Alcohol Use: No History of Substance Use: reports: None - Smoking History Smoking history: Former smoker Have you smoked in the past 12 months: No If you are a former smoker, when did you quit?: 50 yrs ago - Social History ADL: Independent History of Recent Travel: No Home Medications - Allergies Allergies/Adverse Reactions: Allergies Allergy/AdvReac Type Severity Reaction Status Date / Time No Known Allergies Allergy Unverified 02/28/19 17:02 - Home Medications Home Medications: Ambulatory Orders Aspirin 81 mg PO DAILY 01/09/14 Carvedilol 25 mg PO BID tablet 01/09/14 Insulin Glargine,Hum.rec.anlog [Lantus] 60 unit SQ DAILY vial 01/09/14 Tamsulosin HCl [Flomax] 0.4 mg PO BID 01/09/14 Atorvastatin Ca [Lipitor] 20 mg PO HS 07/09/16 Cyclobenzaprine HCl [Flexeril -] 10 mg PO TID 07/09/16 Hydrocodone/Acetaminophen [Vicodin Es 7.5-300 mg Tablet] 1 each PO Q6H PRN 07/09 Insulin Lispro [Humalog] 50 unit SQ DAILY 07/09/16 Lisinopril [Prinivil -] 40 mg PO DAILY 07/09/16 Tiotropium [place] [Spiriva] 18 mcg IH BID 02/28/19 Family Medical History Family History: Unremarkable Review of Systems - Review of Systems Constitutional: reports: No Symptoms Eyes: reports: No Symptoms HENT: reports: No Symptoms Neck: reports: No Symptoms Cardiovascular: reports: No Symptoms Respiratory: reports: No Symptoms Gastrointestinal: reports: No Symptoms Genitourinary: reports: No Symptoms Musculoskeletal: reports: No Symptoms Integumentary: reports: No Symptoms Neurological: reports: No Symptoms Endocrine: reports: No Symptoms Hematology/Lymphatic: reports: No Symptoms Psychiatric: reports: No Symptoms Vital Signs: Vital Signs Temperature 98.2 F 02/28/19 17:10 Pulse Rate 88 03/01/19 06:30 Respiratory Rate 20 02/28/19 22:35 Blood Pressure 125/62 03/01/19 06:30 O2 Sat by Pulse Oximetry (%) 95 02/28/19 22:35 Constitutional: Yes: No Distress, Calm Eyes: Yes: Conjunctiva Clear, EOM Intact HENT: Yes: Atraumatic, Normocephalic Neck: Yes: Supple, Trachea Midline Respiratory: Yes: Regular, CTA Bilaterally Gastrointestinal: Yes: Normal Bowel Sounds, Soft Cardiovascular: Yes: Pulse Irregular JVD: No Heart Sounds: Yes: S1, S2 Extremities: No: Cold Edema: Yes Edema: LLE: 1+, RLE: 1+ Integumentary: No: Jaundice Neurological: Yes: Alert, Oriented Psychiatric: No: Agitated - Other Data Labs, Other Data: CBC, BMP 03/01/19 06:11 03/01/19 06:11 INR, PTT INR 1.26 (0.83-1.09) H 02/28/19 17:30 Troponin, BNP 02/28/19 02/28/19 17:30 17:30 Troponin I < 0.02 B-Natriuretic Peptide 6583.6 H Troponin, BNP 02/28/19 02/28/19 17:30 17:30 Troponin I < 0.02 B-Natriuretic Peptide 6583.6 H Assessment/Plan echo 03/2018 low nl LVEF, mild inferior hypokinesis, nl RV, mild LAE, mild AR mibi 2007 inf MS, mildly reduced LV function, no ischemia tele: sinus, frequent PVCs, PACs EKG: sinus, PVCs, old inferior infarct acute systolic HF exacerbation - echo ordered - cont IV lasix - monitor Cr, lytes, daily weights CAD - cont statin, bb, ACEI, aspirin frequent PVCs - echo ordered - cont bb DM - manage per primary COPD - manage per primary
[2019-03-01] MEDS ORDERED: INSULIN (NOVOLOG) ASPART 100 UNITS/ML 10ML VIAL ONE (12:47)
--- NOTE | 2019-03-01 14:19 | EKG ---
Test Reason : Blood Pressure : / mmHG Vent. Rate : 089 BPM Atrial Rate : 089 BPM P-R Int : 146 ms QRS Dur : 116 ms QT Int : 384 ms P-R-T Axes : -03 012 -28 degrees QTc Int : 467 ms SINUS RHYTHM WITH FREQUENT PREMATURE VENTRICULAR COMPLEXES POSSIBLE INFERIOR INFARCT (CITED ON OR BEFORE 08-SEP-2003) ABNORMAL ECG WHEN COMPARED WITH ECG OF 12-JAN-2007 09:44, PREMATURE VENTRICULAR COMPLEXES ARE NOW PRESENT QUESTIONABLE CHANGE IN QRS AXIS Confirmed by MD Robert, Fei ([id number]) on 03/01/2019 2:19:04 PM Referred By: Confirmed By:Fei Jones MD
[2019-03-01] MEDS ORDERED: ACETAMINOPHEN 325 MG TABLET (FP) PO PRN (14:59)
[2019-03-01] MEDS ORDERED: FLU VACCINE QUAD 60 MCG/0.5 ML (MDV 19-20) IM ONE (15:00)
[2019-03-01 15:36] VITALS: BMI 29.7
--- NOTE | 2019-03-01 16:34 | ECHO ---
Name: MASSIMO ANDERSON Exam:Adult Echocardiogram Study Date: 03/01/2019 02:24 PM Age: 79 yrs Reason For Study: EVALUATE CARDIAC FUNCTION Height: 71 in Weight: 219 lb BSA: 2.2 m2 MMode/2D Measurements & Calculations IVSd: 0.91 cm Ao root diam: 3.0 cm LVIDd: 5.7 cm LVIDs: 4.6 cm LVPWd: 0.89 cm EDV(Teich): 162.8 ml LVOT diam: 2.2 cm ESV(Teich): 99.6 ml Doppler Measurements & Calculations MV E max rocio: 52.6 cm/sec Ao V2 max: 111.0 cm/sec MV A max rocio: 108.0 cm/sec Ao max P.9 mmHg MV E/A: 0.49 Ao V2 mean: 82.3 cm/sec MV dec time: 0.14 sec Ao mean P.0 mmHg Ao V2 VTI: 23.8 cm KEVIN(I,D): 2.7 cm2 AI P1/2t: 388.9 msec KEVIN(V,D): 2.5 cm2 AI max rocio: 250.7 cm/sec LV V1 max P.2 mmHg AI max P.3 mmHg LV V1 mean P.89 mmHg AI dec slope: 188.8 cm/sec2 LV V1 max: 74.0 cm/sec LV V1 mean: 43.3 cm/sec LV V1 VTI: 17.2 cm MR max rocio: 233.5 cm/sec SV(LVOT): 64.9 ml MR max P.8 mmHg TR max rocio: 252.0 cm/sec TR max P.4 mmHg Left Ventricle Normal size Moderate LV dysfunction EF 35 -39%. Right Ventricle Normal RV size and function. Atria The left atrium is mildly dilated. The right atrium is mildly dilated. Mitral Valve The mitral valve is grossly normal. Tricuspid Valve The tricuspid valve is not well visualized, but is grossly normal. There is mild tricuspid regurgitat ion. Aortic Valve The aortic valve is normal in structure and function. Mild aortic regurgitation. Pulmonic Valve The pulmonic valve is not well seen, but is grossly normal. Great Vessels The aortic root is normal size. Pericardium/Pleura There is no pericardial effusion. Interpretation Summary Normal size Moderate LV dysfunction EF 35 -39% Normal RV size and function The right atrium is mildly dilated. The mitral valve is grossly normal. The tricuspid valve is not well visualized, but is grossly normal. There is mild tricuspid regurgitation. The aortic valve is normal in structure and function. Mild aortic regurgitation. The pulmonic valve is not well seen, but is grossly normal. The aortic root is normal size. MD Fei Jones 03/01/2019 04:33 PM
[2019-03-01] MEDS: ATORVASTATIN CA 20 MG TABLET (FP) PO SCH (21:03)
[2019-03-01] MEDS: CARVEDILOL 25 MG TABLET (FP) PO SCH (21:04)
[2019-03-01] MEDS: HEPARIN NA (PORCINE) 5,000 UNITS/ML 1ML VIAL SQ SCH (21:04)
[2019-03-01] MEDS: TAMSULOSIN HCL 0.4 MG CAP PO SCH (21:04)
[2019-03-01] MEDS: INSULIN (LEVEMIR) 100 UNITS/ML UNITS SQ SCH (21:10)
[2019-03-01] MEDS ORDERED: INSULIN (LEVEMIR) 100 UNITS/ML UNITS SQ SCH (22:00)
[2019-03-01] MEDS ORDERED: APIXABAN 5 MG TABLET PO SCH (22:00)
[2019-03-01] MEDS ORDERED: ATORVASTATIN CA 20 MG TABLET (FP) PO SCH (22:00)
[2019-03-02] MEDS: CYCLOBENZAPRINE HCL 10 MG TABLET (FP) PO SCH ×3 (05:27→21:58)
[2019-03-02] MEDS: INSULIN SLIDING SCALE (NOVOLOG) 1 VIAL SQ SCH ×3 (06:09→18:15)
[2019-03-02] MEDS: LISINOPRIL 20 MG TABLET (FP) PO SCH ×2 (11:01→12:51)
[2019-03-02] MEDS: CARVEDILOL 25 MG TABLET (FP) PO SCH ×3 (11:02→22:00)
[2019-03-02] MEDS: FUROSEMIDE 40 MG/4 ML INJECTABLE VIAL IVPUSH SCH ×2 (11:02→16:04)
[2019-03-02] MEDS: HEPARIN NA (PORCINE) 5,000 UNITS/ML 1ML VIAL SQ SCH ×2 (11:02→21:58)
[2019-03-02] MEDS: TAMSULOSIN HCL 0.4 MG CAP PO SCH ×2 (11:02→21:57)
[2019-03-02 12:18] LABS: ALBUMIN 3.2 g/dl (3.4-5.0); BILIRUBIN,TOTAL 1.2 mg/dL (0.2-1); BLOOD UREA NITROGEN 15.9 mg/dL (7-18); CALCIUM 8.6 mg/dL (8.5-10.1); CREATININE 1.1 mg/dL (0.55-1.3); POTASSIUM 4.3 mmol/L (3.5-5.1); TOT PROT 6.2 g/dl (6.4-8.2)
[2019-03-02] MEDS ORDERED: CEFTRIAXONE 1 GM in DEXTROSE 5%-WATER - 50 ML IVPB ONE (12:48)
[2019-03-02] MEDS ORDERED: ALBUTEROL SO4 0.083% IH SOL 2.5 MG/3 ML VIAL.NEB. NEB PRN (12:52)
--- NOTE | 2019-03-02 12:52 | PN ---
Progress Note (short form) - Note Progress Note: pt examined in floors feels well spoke to daughter Vital Signs - 24 hr 03/01/19 03/01/19 03/01/19 14:00 14:20 16:30 Temperature 98.5 F 97.7 F Pulse Rate 87 89 Respiratory 18 20 Rate Blood Pressure 127/75 115/63 O2 Sat by Pulse 96 Oximetry (%) 03/01/19 03/01/19 03/01/19 20:40 21:00 22:00 Temperature 97.4 F L 98.3 F Pulse Rate 95 H 56 L Respiratory 21 H 20 Rate Blood Pressure 121/78 101/51 L O2 Sat by Pulse 90 L 93 L Oximetry (%) 03/02/19 07:32 Temperature 97.9 F Pulse Rate 85 Respiratory 20 Rate Blood Pressure 134/66 O2 Sat by Pulse Oximetry (%) Current Medications Generic Name Dose Route Start Last Admin Trade Name Freq PRN Reason Stop Dose Admin Acetaminophen 650 mg 03/01/19 14:59 Tylenol - PO Q4H PRN PAIN OR FEVER Atorvastatin Calcium 20 mg 03/01/19 22:00 03/01/19 21:03 Lipitor - PO 20 mg HS [facility] Administration Carvedilol 25 mg 03/01/19 22:00 03/02/19 11:02 Coreg - PO 25 mg BID [facility] Administration Cyclobenzaprine HCl 10 mg 03/01/19 22:00 03/02/19 05:27 Flexeril - PO 10 mg TID [facility] Administration Furosemide 40 mg 03/02/19 10:00 03/02/19 11:02 Lasix Injection - IVPUSH 40 mg DAILY [facility] Administration Heparin Sodium (Porcine) 5,000 unit 03/01/19 22:00 03/02/19 11:02 Heparin - SQ 5,000 unit BID [facility] Administration Insulin Aspart 1 vial 03/01/19 16:30 03/02/19 12:13 Novolog Vial Sliding Scale - SQ 2 units TIDAC [facility] Administration Protocol Insulin Detemir 30 units 03/01/19 22:00 03/01/19 21:10 Levemir Vial SQ 30 units HS [facility] Administration Lisinopril 40 mg 03/02/19 10:00 03/02/19 11:01 Prinivil PO 40 mg DAILY [facility] Administration Tamsulosin HCl 0.4 mg 03/01/19 20:30 03/02/19 11:02 Flomax - PO 0.4 mg Q12H [facility] Administration Tiotropium [place] 2 puff 03/02/19 10:00 Spiriva Respimat IH DAILY [facility] Laboratory Results - last 24 hr 03/01/19 03/01/19 03/01/19 12:30 17:05 21:09 Sodium Potassium Chloride Carbon Dioxide Anion Gap BUN Creatinine Est GFR (CKD-EPI)AfAm Est GFR (CKD-EPI)NonAf POC Glucometer 182 212 Random Glucose Calcium Total Bilirubin AST ALT Alkaline Phosphatase Creatine Kinase 68 Troponin I < 0.02 Total Protein Albumin 03/02/19 03/02/19 03/02/19 05:41 11:28 12:03 Sodium 138 Potassium 4.3 Chloride 102 Carbon Dioxide 30 Anion Gap 6 L BUN 15.9 Creatinine 1.1 Est GFR (CKD-EPI)AfAm 73.09 Est GFR (CKD-EPI)NonAf 63.07 POC Glucometer 97 179 Random Glucose 201 H Calcium 8.6 Total Bilirubin 1.2 H AST 13 L ALT 23 Alkaline Phosphatase 101 Creatine Kinase Troponin I Total Protein 6.2 L Albumin 3.2 L 79 year old male with PMH of unspecified cardiac arrhythmia, HTN, HLD, CAD s/p triple bypass, IDDM, COPD, CHF arrived to ED with complain SOB, as per patient SOB has been getting worse over the course of month,went to PMD who sent to ED for further evaluation. # ACUTE CHF exacerbation -CXR elevated R hemidiaphragm, R infiltrate. -US b/l LE: without DVT -Elevated BNP:6583.6 -40mg IV Lasix - continue with O2 via NC - Fluids restriction - Monitor I & O - continue with lasix 40 mg IV push daily #cardiac arrhythmia # HTN, HLD, CAD s/p triple bypas - EKG at PCP office reportedly concerning for old inferior wall NE, poor R wave progression, potentially ventricular bigeminy, normal sinus with multiple PVCs. - At hospital EKG at 89 bpm, sinus rhythm at frequent PVCs, appears to have prior inferior NE. - tele monitoring - Carvedilol 25 mg PO BID - Lisinopril 40 mg PO DAILY - Atorvastatin Ca 20 mg PO HS - monitor BP/HR closely - 24 hr holter ordered #DM -monitor FSBS TID AC -coverage with Novolog sliding scale -continue with Levemir 30 units at HS # COPD - Tiotropium [place] 18 mcg IH BID -- nebs as needed --repeat CXR in AM # BPH - Tamsulosin HCl 0.4 mg PO BID
[2019-03-02] MEDS ORDERED: DEXTROSE 5%-WATER - 50 ML IVPB ONE (14:47)
[2019-03-02] MEDS ORDERED: cefTRIAXone SODIUM 1 GM VIAL ONE (14:47)
[2019-03-02] MEDS: TIOTROPIUM BROMIDE 2.5 MCG (SPIRIVA) RESPIMAT INHALER IH SCH (14:50)
--- NOTE | 2019-03-02 15:45 | PN ---
Progress Note (short form) - Note Progress Note: s: no cp sob palps; mild dizzy when stands up Vital Signs Period Temp Pulse Resp BP Sys/Souza Pulse Ox Last 24 Hr 97.4 F-98.3 F 56-95 20-21 101-134/51-78 90-93 Constitutional: Yes: No Distress, Calm Eyes: Yes: Conjunctiva Neck: Yes: Supple, Trachea Midline Respiratory: Yes: Regular, CTA Bilaterally nl eff Gastrointestinal: Yes: Normal Bowel Sounds, Soft Cardiovascular: Yes: Pulse Irregular JVD: No Heart Sounds: Yes: S1, S2 Extremities: No: Cold Edema: Yes Edema: LLE: 1+, RLE: 1+ Integumentary: No: Jaundice Neurological: Yes: Alert, Oriented Psychiatric: No: Agitated Current Medications Generic Name Dose Route Start Last Admin Trade Name Freq PRN Reason Stop Dose Admin Acetaminophen 650 mg 03/01/19 14:59 Tylenol - PO Q4H PRN PAIN OR FEVER Albuterol Sulfate 1 amp 03/02/19 12:52 Ventolin 0.083% Nebulizer Soln - NEB Q6H PRN SHORT OF BREATH/WHEEZING Atorvastatin Calcium 20 mg 03/01/19 22:00 03/01/19 21:03 Lipitor - PO 20 mg HS [facility] Administration Carvedilol 25 mg 03/01/19 22:00 03/02/19 12:52 Coreg - PO Not Given BID [facility] Cyclobenzaprine HCl 10 mg 03/01/19 22:00 03/02/19 14:50 Flexeril - PO 10 mg TID [facility] Administration Furosemide 40 mg 03/02/19 10:00 03/02/19 11:02 Lasix Injection - IVPUSH 40 mg DAILY [facility] Administration Heparin Sodium (Porcine) 5,000 unit 03/01/19 22:00 03/02/19 11:02 Heparin - SQ 5,000 unit BID [facility] Administration Ceftriaxone Sodium 1 gm/ 50 mls @ 100 mls/hr 03/03/19 10:00 Dextrose IVPB DAILY [facility] Insulin Aspart 1 vial 03/01/19 16:30 03/02/19 12:13 Novolog Vial Sliding Scale - SQ 2 units TIDAC [facility] Administration Protocol Insulin Detemir 30 units 03/01/19 22:00 03/01/19 21:10 Levemir Vial SQ 30 units HS [facility] Administration Lisinopril 40 mg 03/02/19 10:00 03/02/19 12:51 Prinivil PO Not Given DAILY [facility] Tamsulosin HCl 0.4 mg 03/01/19 20:30 03/02/19 11:02 Flomax - PO 0.4 mg Q12H [facility] Administration Tiotropium [place] 2 puff 03/02/19 10:00 03/02/19 14:50 Spiriva Respimat IH 2 puff DAILY [facility] Administration CBC, BMP 03/01/19 06:11 03/02/19 11:28 Assessment/Plan echo 03/2018 low nl LVEF, mild inferior hypokinesis, nl RV, mild LAE, mild AR echo 02/2019: mod dec lvef, nl rv, [place], mild tr, mild ar mibi 2007 inf [place], mildly reduced LV function, no ischemia EKG: sinus, PVCs, old inferior infarct acute systolic HF exacerbation - vol status improving, cont IV lasix - monitor Cr, lytes, daily weights - echo here shows lvef lower than prior, possibly due to acute chf. repeat echo as outpt when vol status improved. - cont bb, norbert CAD - cont statin, bb, ACEI, aspirin DM - manage per primary COPD - manage per primary
[2019-03-02] MEDS: INSULIN (LEVEMIR) 100 UNITS/ML UNITS SQ SCH (21:59)
[2019-03-02] MEDS: ATORVASTATIN CA 20 MG TABLET (FP) PO SCH (21:59)
[2019-03-03] MEDS: INSULIN SLIDING SCALE (NOVOLOG) 1 VIAL SQ SCH ×3 (07:00→17:59)
[2019-03-03] MEDS: CYCLOBENZAPRINE HCL 10 MG TABLET (FP) PO SCH ×3 (07:01→21:47)
[2019-03-03] MEDS ORDERED: cefTRIAXone SODIUM 1 GM VIAL ONE (09:24)
[2019-03-03] MEDS ORDERED: DEXTROSE 5%-WATER - 50 ML IVPB ONE (09:25)
--- NOTE | 2019-03-03 10:46 | PN ---
Progress Note (short form) - Note Progress Note: pt examined no distress feels well after lasix Vital Signs - 24 hr 03/02/19 03/02/19 03/02/19 14:00 16:30 19:08 Temperature 98.1 F 97.6 F 97.7 F Pulse Rate 51 L 48 L 71 Respiratory 20 18 26 H Rate Blood Pressure 107/56 L 122/69 111/56 L O2 Sat by Pulse 95 Oximetry (%) 03/02/19 03/02/19 03/02/19 20:32 20:34 21:45 Temperature 97.9 F 98.1 F Pulse Rate 60 48 L Respiratory 26 H 20 24 H Rate Blood Pressure 139/52 L 135/48 L O2 Sat by Pulse 96 90 L Oximetry (%) 03/03/19 06:00 Temperature 98.7 F Pulse Rate 76 Respiratory 20 Rate Blood Pressure 152/100 O2 Sat by Pulse Oximetry (%) Current Medications Generic Name Dose Route Start Last Admin Trade Name Freq PRN Reason Stop Dose Admin Acetaminophen 650 mg 03/01/19 14:59 Tylenol - PO Q4H PRN PAIN OR FEVER Albuterol Sulfate 1 amp 03/02/19 12:52 Ventolin 0.083% Nebulizer Soln - NEB Q6H PRN SHORT OF BREATH/WHEEZING Atorvastatin Calcium 20 mg 03/01/19 22:00 03/02/19 21:59 Lipitor - PO 20 mg HS [facility] Administration Carvedilol 25 mg 03/01/19 22:00 03/02/19 22:00 Coreg - PO Not Given BID [facility] Cyclobenzaprine HCl 10 mg 03/01/19 22:00 03/03/19 07:01 Flexeril - PO 10 mg TID [facility] Administration Furosemide 40 mg 03/02/19 10:00 03/02/19 16:04 Lasix Injection - IVPUSH 40 mg DAILY [facility] Administration Heparin Sodium (Porcine) 5,000 unit 03/01/19 22:00 03/02/19 21:58 Heparin - SQ 5,000 unit BID [facility] Administration Ceftriaxone Sodium 1 gm/ 50 mls @ 100 mls/hr 03/03/19 10:00 Dextrose IVPB DAILY [facility] Insulin Aspart 1 vial 03/01/19 16:30 03/03/19 07:00 Novolog Vial Sliding Scale - SQ Not Given TIDAC [facility] Protocol Insulin Detemir 30 units 03/01/19 22:00 03/02/19 21:59 Levemir Vial SQ 30 units HS [facility] Administration Lisinopril 40 mg 03/02/19 10:00 03/02/19 12:51 Prinivil PO Not Given DAILY [facility] Tamsulosin HCl 0.4 mg 03/01/19 20:30 03/02/19 21:57 Flomax - PO 0.4 mg Q12H [facility] Administration Tiotropium [place] 2 puff 03/02/19 10:00 03/02/19 14:50 Spiriva Respimat IH 2 puff DAILY [facility] Administration Laboratory Results - last 24 hr 03/02/19 03/02/19 03/02/19 11:28 12:03 18:01 Sodium 138 Potassium 4.3 Chloride 102 Carbon Dioxide 30 Anion Gap 6 L BUN 15.9 Creatinine 1.1 Est GFR (CKD-EPI)AfAm 73.09 Est GFR (CKD-EPI)NonAf 63.07 POC Glucometer 179 196 Random Glucose 201 H Calcium 8.6 Total Bilirubin 1.2 H AST 13 L ALT 23 Alkaline Phosphatase 101 Total Protein 6.2 L Albumin 3.2 L 03/02/19 03/03/19 21:51 06:59 Sodium Potassium Chloride Carbon Dioxide Anion Gap BUN Creatinine Est GFR (CKD-EPI)AfAm Est GFR (CKD-EPI)NonAf POC Glucometer 181 71 Random Glucose Calcium Total Bilirubin AST ALT Alkaline Phosphatase Total Protein Albumin Intake & Output 02/28/19 03/01/19 03/02/19 03/03/19 23:59 23:59 23:59 23:59 Intake Total 200 100 Output Total 1400 Balance -1400 200 100 Weight 213 lb 1 oz 79 year old male with PMH of unspecified cardiac arrhythmia, HTN, HLD, CAD s/p triple bypass, IDDM, COPD, CHF arrived to ED with complain SOB, as per patient SOB has been getting worse over the course of month,went to PMD who sent to ED for further evaluation. # ACUTE CHF exacerbation -CXR elevated R hemidiaphragm, R infiltrate. -US b/l LE: without DVT -Elevated BNP:6583.6 -In ED:given 40mg IV Lasix - continue with O2 via NC - Fluids restriction - Monitor I & O - continue with lasix 40 mg IV push daily better low normal EF on echo OOB daily repeat CXR #cardiac arrhythmia # HTN, HLD, CAD s/p triple bypas - EKG at PCP office reportedly concerning for old inferior wall [place], poor R wave progression, potentially ventricular bigeminy, normal sinus with multiple PVCs. - At hospital EKG at 89 bpm, sinus rhythm at frequent PVCs, appears to have prior inferior [place]. - 24 hr holter monitoring in place-- remove today - Carvedilol 25 mg PO BID - Lisinopril 40 mg PO DAILY - Atorvastatin Ca 20 mg PO HS - monitor BP/HR closely #DM -monitor FSBS TID AC -coverage with Novolog sliding scale -continue with Levemir 30 units at HS # COPD - Tiotropium [place] 18 mcg IH BID # BPH - Tamsulosin HCl 0.4 mg PO BID CXR to be repeated today Ceftriaxone for questionable infiltrates on previous CXR-- repeating one today possible dc in AM in CXR better
[2019-03-03] MEDS: LISINOPRIL 20 MG TABLET (FP) PO SCH (10:59)
[2019-03-03] MEDS: TAMSULOSIN HCL 0.4 MG CAP PO SCH ×2 (10:59→21:47)
[2019-03-03] MEDS: FUROSEMIDE 40 MG/4 ML INJECTABLE VIAL IVPUSH SCH (11:00)
[2019-03-03] MEDS: HEPARIN NA (PORCINE) 5,000 UNITS/ML 1ML VIAL SQ SCH ×2 (11:00→21:47)
[2019-03-03] MEDS: CARVEDILOL 25 MG TABLET (FP) PO SCH ×2 (11:00→21:47)
[2019-03-03] MEDS: CEFTRIAXONE 1 GM in DEXTROSE 5%-WATER - 50 ML IVPB SCH (11:01)
[2019-03-03] MEDS: TIOTROPIUM BROMIDE 2.5 MCG (SPIRIVA) RESPIMAT INHALER IH SCH (11:05)
--- NOTE | 2019-03-03 11:42 | PN ---
Progress Note (short form) - Note Progress Note: s: no cp sob palps dizzy Vital Signs Period Temp Pulse Resp BP Sys/Souza Pulse Ox Last 24 Hr 97.6 F-98.7 F 48-76 18-26 107-152/48-100 90-96 Constitutional: Yes: No Distress, Calm Eyes: Yes: Conjunctiva Neck: Yes: Supple, Trachea Midline Respiratory: Yes: Regular, CTA Bilaterally nl eff Gastrointestinal: Yes: Normal Bowel Sounds, Soft Cardiovascular: Yes: Pulse Irregular JVD: No Heart Sounds: Yes: S1, S2 Extremities: No: Cold Edema: trace le edema bl Integumentary: No: Jaundice Neurological: Yes: Alert, Oriented Psychiatric: No: Agitated Current Medications Generic Name Dose Route Start Last Admin Trade Name Freq PRN Reason Stop Dose Admin Acetaminophen 650 mg 03/01/19 14:59 Tylenol - PO Q4H PRN PAIN OR FEVER Albuterol Sulfate 1 amp 03/02/19 12:52 Ventolin 0.083% Nebulizer Soln - NEB Q6H PRN SHORT OF BREATH/WHEEZING Atorvastatin Calcium 20 mg 03/01/19 22:00 03/02/19 21:59 Lipitor - PO 20 mg HS RIKKI Administration Carvedilol 25 mg 03/01/19 22:00 03/03/19 11:00 Coreg - PO 25 mg BID RIKKI Administration Cyclobenzaprine HCl 10 mg 03/01/19 22:00 03/03/19 07:01 Flexeril - PO 10 mg TID RIKKI Administration Furosemide 40 mg 03/02/19 10:00 03/03/19 11:00 Lasix Injection - IVPUSH 40 mg DAILY RIKIK Administration Heparin Sodium (Porcine) 5,000 unit 03/01/19 22:00 03/03/19 11:00 Heparin - SQ 5,000 unit BID RIKKI Administration Ceftriaxone Sodium 1 gm/ 50 mls @ 100 mls/hr 03/03/19 10:00 03/03/19 11:01 Dextrose IVPB 100 mls/hr DAILY RIKKI Administration Insulin Aspart 1 vial 03/01/19 16:30 03/03/19 07:00 Novolog Vial Sliding Scale - SQ Not Given TIDAC [facility] Protocol Insulin Detemir 30 units 03/01/19 22:00 03/02/19 21:59 Levemir Vial SQ 30 units HS RIKKI Administration Lisinopril 40 mg 03/02/19 10:00 03/03/19 10:59 Prinivil PO 40 mg DAILY RIKKI Administration Tamsulosin HCl 0.4 mg 03/01/19 20:30 03/03/19 10:59 Flomax - PO 0.4 mg Q12H RIKKI Administration Tiotropium [place] 2 puff 03/02/19 10:00 03/03/19 11:05 Spiriva Respimat IH 2 puff DAILY RIKKI Administration Laboratory Last Values WBC 9.7 K/mm3 (4.0-10.0) 03/01/19 06:11 RBC 4.63 M/mm3 (4.00-5.60) 03/01/19 06:11 Hgb 14.1 GM/dL (11.7-16.9) 03/01/19 06:11 Hct 41.1 % (35.4-49) 03/01/19 06:11 MCV 88.8 fl (80-96) 03/01/19 06:11 MCH 30.5 pg (25.7-33.7) 03/01/19 06:11 MCHC 34.4 g/dl (32.0-35.9) 03/01/19 06:11 RDW 13.7 % (11.9-15.9) 03/01/19 06:11 Plt Count 266 K/MM3 (134-434) 03/01/19 06:11 MPV 9.8 fl (7.5-11.1) 03/01/19 06:11 Absolute Neuts (auto) 7.2 K/mm3 (1.5-8.0) 02/28/19 17:30 Neutrophils % 72.3 % (42.8-82.8) 02/28/19 17:30 Lymphocytes % 20.8 % (8-40) 02/28/19 17:30 Monocytes % 5.5 % (3.8-10.2) 02/28/19 17:30 Eosinophils % 0.1 % (0-4.5) 02/28/19 17:30 Basophils % 1.3 % (0-2.0) 02/28/19 17:30 Nucleated RBC % 0 % (0-0) 02/28/19 17:30 PT with INR 14.90 SEC (9.7-13.0) H 02/28/19 17:30 INR 1.26 (0.83-1.09) H 02/28/19 17:30 PTT (Actin FS) 33.9 SECONDS (25.2-36.5) 02/28/19 17:30 Sodium 138 mmol/L (136-145) 03/02/19 11:28 Potassium 4.3 mmol/L (3.5-5.1) 03/02/19 11:28 Chloride 102 mmol/L (98-107) 03/02/19 11:28 Carbon Dioxide 30 mmol/L (21-32) 03/02/19 11:28 Anion Gap 6 MMOL/L (8-16) L 03/02/19 11:28 BUN 15.9 mg/dL (7-18) 03/02/19 11:28 Creatinine 1.1 mg/dL (0.55-1.3) 03/02/19 11:28 Est GFR (CKD-EPI)AfAm 73.09 03/02/19 11:28 Est GFR (CKD-EPI)NonAf 63.07 03/02/19 11:28 POC Glucometer 71 UNITS (80-120) 03/03/19 06:59 Random Glucose 201 mg/dL (74-106) H 03/02/19 11:28 Calcium 8.6 mg/dL (8.5-10.1) 03/02/19 11:28 Phosphorus 3.3 mg/dL (2.5-4.9) 02/28/19 17:30 Magnesium 2.1 mg/dL (1.8-2.4) 02/28/19 17:30 Total Bilirubin 1.2 mg/dL (0.2-1) H 03/02/19 11:28 AST 13 U/L (15-37) L 03/02/19 11:28 ALT 23 U/L (13-61) 03/02/19 11:28 Alkaline Phosphatase 101 U/L (45-117) 03/02/19 11:28 Creatine Kinase 68 U/L (26-308) 03/01/19 12:30 Troponin I < 0.02 ng/ml (0.00-0.05) 03/01/19 12:30 B-Natriuretic Peptide 6583.6 pg/ml (5-450) H 02/28/19 17:30 Total Protein 6.2 g/dl (6.4-8.2) L 03/02/19 11:28 Albumin 3.2 g/dl (3.4-5.0) L 03/02/19 11:28 Assessment/Plan echo 03/2018 low nl LVEF, mild inferior hypokinesis, nl RV, mild LAE, mild AR echo 02/2019: mod dec lvef, nl rv, kortney, mild tr, mild ar mibi 2007 inf [place], mildly reduced LV function, no ischemia EKG: sinus, PVCs, old inferior infarct acute systolic HF exacerbation - vol status improving, cont IV lasix, can likely change to po lasix tomorrow - monitor Cr, lytes, daily weights - echo here shows lvef lower than prior, possibly due to acute chf. repeat echo as outpt when vol status improved. - cont bb, norbert CAD - cont statin, bb, ACEI, aspirin DM - manage per primary COPD - manage per primary
--- NOTE | 2019-03-03 14:29 | HOL ---
Hook-up date: 2019-03-02 11:30:00 Duration: 23:53:00 Test Indications: ARRHYTHMIA Medications: 654043 QRS complexes 36892 Ventricular ectopics which represent 50 % of total QRS comp. 230 Supraventricular ectopics which represent <1 % of total QRS comp. * Paced QRS complexs which represent % of total QRS comp. * % of Time Classified as Noise VENTRICULAR ECTOPY 77361 Isolated 67475 Bigeminal Cycles 2712 Couplets 1551 Runs 5312 Beats in Runs 20 Beats LONGEST at 112 BPM at 00:50:58 2019-03-03 3 Beats FASTEST at 172 BPM at 17:19:31 2019-03-02 SUPRAVENTRICULAR ECTOPY 220 Isolated 5 Couplets 0 Runs 0 Beats in Runs * Beats LONGEST at * BPM at :: -- * Beats FASTEST at * BPM at :: -- HEART RATES 78 MIN at 14:27:26 2019-03-02 97 AVG 137 MAX at 10:19:43 2019-03-03 LONGEST RR 0.448 secs at 19:05:29 2019-03-02 SCANNED BY RISSA SWANSON ON 03/03/19 1. Baseline sinus rhythm with avg hr 97, range 78-137. 2. No significant pauses/bradycardia. 3. Occasional PACs. 4. Frequent PVCs. Frequent brief episodes NSVT, longest 20 beats. 5. No vf, afib, aflutter, svt. 6. No diary submitted. Confirmed by BRYAN LAYTON, BURTON ([id number]) on 03/03/2019 2:28:16 PM Referred By: TINA FRAZIER DR Overread By: BURTON ADAMS MD
[2019-03-03] MEDS ORDERED: INSULIN (NOVOLOG) ASPART 100 UNITS/ML 10ML VIAL ONE (17:59)
[2019-03-03] MEDS ORDERED: PT OWN MED DRAWER 7, Y5N ONE (18:40)
[2019-03-03] MEDS: ATORVASTATIN CA 20 MG TABLET (FP) PO SCH (21:47)
[2019-03-03] MEDS: INSULIN (LEVEMIR) 100 UNITS/ML UNITS SQ SCH (21:47)
[2019-03-04] MEDS: CYCLOBENZAPRINE HCL 10 MG TABLET (FP) PO SCH ×3 (06:48→21:27)
[2019-03-04] MEDS: INSULIN SLIDING SCALE (NOVOLOG) 1 VIAL SQ SCH ×3 (06:48→17:59)
[2019-03-04] MEDS: TAMSULOSIN HCL 0.4 MG CAP PO SCH ×2 (08:13→20:32)
[2019-03-04] MEDS ORDERED: DEXTROSE 5%-WATER - 50 ML IVPB ONE (09:15)
[2019-03-04] MEDS ORDERED: cefTRIAXone SODIUM 1 GM VIAL ONE (09:15)
[2019-03-04] MEDS: HEPARIN NA (PORCINE) 5,000 UNITS/ML 1ML VIAL SQ SCH ×2 (09:24→21:27)
[2019-03-04] MEDS: CEFTRIAXONE 1 GM in DEXTROSE 5%-WATER - 50 ML IVPB SCH (09:24)
[2019-03-04] MEDS: FUROSEMIDE 40 MG/4 ML INJECTABLE VIAL IVPUSH SCH (09:24)
[2019-03-04] MEDS: TIOTROPIUM BROMIDE 2.5 MCG (SPIRIVA) RESPIMAT INHALER IH SCH (09:25)
--- NOTE | 2019-03-04 10:39 | PN ---
Progress Note (short form) - Note Progress Note: pt seen/ examined feels better still gets sob with walking denies cp afebrile cxr- Persistent Infiltrate. Vital Signs Temp 97.4 F L 03/04/19 09:23 Pulse 47 L 03/04/19 09:23 Resp 18 03/04/19 09:23 BP 120/44 L 03/04/19 09:23 Pulse Ox 94 L 03/03/19 21:00 Intake & Output 03/03/19 03/03/19 03/04/19 11:59 23:59 11:59 Intake Total 100 100 Balance 100 100 Weight 216 lb 11.2 oz Intake: IVPB 100 Oral 100 Other: Voiding Method Toilet Toilet # Unmeasured Voids Void 3 2 Bowel Movement No No Weight Measurement Method Standing Scale [facility] Active Medications Acetaminophen (Tylenol -) 650 mg PO Q4H PRN PRN Reason: PAIN OR FEVER Albuterol Sulfate (Ventolin 0.083% Nebulizer Soln -) 1 amp NEB Q6H PRN PRN Reason: SHORT OF BREATH/WHEEZING Atorvastatin Calcium (Lipitor -) 20 mg PO HS [facility] Last Admin: 03/03/19 21:47 Dose: 20 mg Carvedilol (Coreg -) 25 mg PO BID [facility] Last Admin: 03/03/19 21:47 Dose: 25 mg Cyclobenzaprine HCl (Flexeril -) 10 mg PO TID [facility] Last Admin: 03/04/19 06:48 Dose: 10 mg Furosemide (Lasix Injection -) 40 mg IVPUSH DAILY [facility] Last Admin: 03/04/19 09:24 Dose: 40 mg Heparin Sodium (Porcine) (Heparin -) 5,000 unit SQ BID [facility] Last Admin: 03/04/19 09:24 Dose: 5,000 unit Ceftriaxone Sodium 1 gm/ (Dextrose) 50 mls @ 100 mls/hr IVPB DAILY [facility] Last Admin: 03/04/19 09:24 Dose: 100 mls/hr Insulin Aspart (Novolog Vial Sliding Scale -) 1 vial SQ TIDAC [facility]; Protocol Last Admin: 03/04/19 06:48 Dose: Not Given Insulin Detemir (Levemir Vial) 30 units SQ HS [facility] Last Admin: 03/03/19 21:47 Dose: 30 units Lisinopril (Prinivil) 40 mg PO DAILY [facility] Last Admin: 03/03/19 10:59 Dose: 40 mg Tamsulosin HCl (Flomax -) 0.4 mg PO Q12H [facility] Last Admin: 03/04/19 08:13 Dose: 0.4 mg Tiotropium [place] (Spiriva Respimat) 2 puff IH DAILY [facility] Last Admin: 03/04/19 09:25 Dose: 2 puff CBC, BMP 03/01/19 06:11 03/02/19 11:28 cxr-- Persistent infiltrate. Physical Exam Constitutional: Yes: No Distress, Calm and comfortable Cardiovascular: Yes: Bradycardic Respiratory: Yes: CTA Bilaterally Gastrointestinal: Yes: Soft, non tender Edema: No Neurological: Yes: Alert, Oriented A/P 79 year old male with PMH of unspecified cardiac arrhythmia, HTN, HLD, CAD s/p triple bypass, IDDM, COPD, CHF arrived to ED with complain SOB, as per patient SOB has been getting worse over the course of month,went to PMD who sent to ED for further evaluation. # ACUTE CHF exacerbation -CXR elevated R hemidiaphragm, R infiltrate. -US b/l LE: without DVT -Elevated BNP:6583.6 -In ED:given 40mg IV Lasix - continue with O2 via NC - Fluids restriction - Monitor I & O - continue with lasix 40 mg IV push daily better low normal EF on echo OOB daily repeat CXR #cardiac arrhythmia # HTN, HLD, CAD s/p triple bypas - Doyle today Hold coreg-- d/w RN #DM -monitor FSBS TID AC -coverage with Novolog sliding scale -continue with Levemir 30 units at HS # COPD - Tiotropium [place] 18 mcg IH BID # BPH - Tamsulosin HCl 0.4 mg PO BID Continue present care abx i/v lasix f/u labs will follow
--- NOTE | 2019-03-04 11:53 | PN ---
Progress Note, Physician Chief Complaint: feels palps Doyle on exam no cp, no sob, no dizziness - Current Medication List Current Medications: Active Medications Acetaminophen (Tylenol -) 650 mg PO Q4H PRN PRN Reason: PAIN OR FEVER Albuterol Sulfate (Ventolin 0.083% Nebulizer Soln -) 1 amp NEB Q6H PRN PRN Reason: SHORT OF BREATH/WHEEZING Atorvastatin Calcium (Lipitor -) 20 mg PO HS [facility] Last Admin: 03/03/19 21:47 Dose: 20 mg Carvedilol (Coreg -) 25 mg PO BID [facility] Last Admin: 03/03/19 21:47 Dose: 25 mg Cyclobenzaprine HCl (Flexeril -) 10 mg PO TID [facility] Last Admin: 03/04/19 06:48 Dose: 10 mg Furosemide (Lasix Injection -) 40 mg IVPUSH DAILY [facility] Last Admin: 03/04/19 09:24 Dose: 40 mg Heparin Sodium (Porcine) (Heparin -) 5,000 unit SQ BID [facility] Last Admin: 03/04/19 09:24 Dose: 5,000 unit Ceftriaxone Sodium 1 gm/ (Dextrose) 50 mls @ 100 mls/hr IVPB DAILY [facility] Last Admin: 03/04/19 09:24 Dose: 100 mls/hr Insulin Aspart (Novolog Vial Sliding Scale -) 1 vial SQ TIDAC [facility]; Protocol Last Admin: 03/04/19 06:48 Dose: Not Given Insulin Detemir (Levemir Vial) 30 units SQ HS [facility] Last Admin: 03/03/19 21:47 Dose: 30 units Lisinopril (Prinivil) 40 mg PO DAILY [facility] Last Admin: 03/03/19 10:59 Dose: 40 mg Tamsulosin HCl (Flomax -) 0.4 mg PO Q12H [facility] Last Admin: 03/04/19 08:13 Dose: 0.4 mg Tiotropium [place] (Spiriva Respimat) 2 puff IH DAILY [facility] Last Admin: 03/04/19 09:25 Dose: 2 puff - Objective Vital Signs: Vital Signs Temperature 97.4 F L 03/04/19 09:23 Pulse Rate 47 L 03/04/19 09:23 Respiratory Rate 18 03/04/19 09:23 Blood Pressure 120/44 L 03/04/19 09:23 O2 Sat by Pulse Oximetry (%) 94 L 03/03/19 21:00 Constitutional: Yes: No Distress, Calm Cardiovascular: Yes: Regular Rate and Rhythm Respiratory: Yes: CTA Bilaterally Gastrointestinal: Yes: Soft Edema: No Neurological: Yes: Alert, Oriented Labs: CBC, BMP 03/01/19 06:11 03/02/19 11:28 INR, PTT INR 1.26 (0.83-1.09) H 02/28/19 17:30 Assessment/Plan Assessment/Plan echo 03/2018 low nl LVEF, mild inferior hypokinesis, nl RV, mild LAE, mild AR echo 02/2019: mod dec lvef, nl rv, kortney, mild tr, mild ar mibi 2007 inf [place], mildly reduced LV function, no ischemia EKG: sinus, PVCs, old inferior infarct bradycardia: ECG now; hold Coreg for now acute systolic HF exacerbation - vol status , switch to PO Lasix - monitor Cr, lytes, daily weights - echo here shows lvef lower than prior, possibly due to acute chf. repeat echo as outpt when vol status improved. - cont bb, norbert CAD - cont statin, bb, ACEI, aspirin DM - manage per primary COPD - manage per primary
[2019-03-04] MEDS: CARVEDILOL 25 MG TABLET (FP) PO SCH (12:34)
[2019-03-04] MEDS: LISINOPRIL 20 MG TABLET (FP) PO SCH (12:37)
--- NOTE | 2019-03-04 13:57 | EKG ---
Test Reason : Blood Pressure : / mmHG Vent. Rate : 088 BPM Atrial Rate : 088 BPM P-R Int : 160 ms QRS Dur : 116 ms QT Int : 410 ms P-R-T Axes : 031 024 -33 degrees QTc Int : 496 ms SINUS RHYTHM WITH FREQUENT PREMATURE VENTRICULAR COMPLEXES POSSIBLE LEFT ATRIAL ENLARGEMENT INFERIOR INFARCT (CITED ON OR BEFORE 08-SEP-2003) ABNORMAL ECG WHEN COMPARED WITH ECG OF 28-FEB-2019 17:09, NO SIGNIFICANT CHANGE WAS FOUND Confirmed by KIRK PAGE MD ([id number]) on 03/04/2019 1:56:37 PM Referred By: KAYLEE ROSADO Confirmed By:KIRK PAGE MD
[2019-03-04 18:12] LABS: CALCIUM 8.8 mg/dL (8.5-10.1); CREATININE 1.1 mg/dL (0.55-1.3); MAGNESIUM 2.3 mg/dL (1.8-2.4); POTASSIUM 4.6 mmol/L (3.5-5.1)
[2019-03-04] MEDS: INSULIN (LEVEMIR) 100 UNITS/ML UNITS SQ SCH (21:27)
[2019-03-04] MEDS: ATORVASTATIN CA 20 MG TABLET (FP) PO SCH (21:27)
[2019-03-04] MEDS ORDERED: ALBUTEROL SO4 0.083% IH SOL 2.5 MG/3 ML VIAL.NEB. NEB PRN (22:14)
[2019-03-04] MEDS ORDERED: ACETAMINOPHEN 325 MG TABLET (FP) PO PRN (22:14)
[2019-03-05] MEDS: CYCLOBENZAPRINE HCL 10 MG TABLET (FP) PO SCH ×3 (05:36→20:59)
[2019-03-05] MEDS: INSULIN SLIDING SCALE (NOVOLOG) 1 VIAL SQ SCH ×3 (06:16→16:53)
[2019-03-05 06:39] LABS: BASO % 0.4 % (0-2.0); EOS % 0.4 % (0-4.5); HEMATOCRIT 44.7 % (35.4-49); LYMPH % 24.6 % (8-40); MCH 29.7 pg (25.7-33.7); MCHC 33.5 g/dl (32.0-35.9); MEAN CELL VOLUME 88.8 fl (80-96); MEAN PLT VOLUME 9.8 fl (7.5-11.1); MONO % 6.3 % (3.8-10.2); NEUT % 68.3 % (42.8-82.8); PLATELET COUNT 281 K/MM3 (134-434); RBC 5.03 M/mm3 (4.00-5.60); RDW 13.5 % (11.9-15.9); WHITE BLOOD COUNT 8.4 K/mm3 (4.0-10.0)
[2019-03-05 07:02] LABS: ALBUMIN 3.1 g/dl (3.4-5.0); BILIRUBIN,TOTAL 1.2 mg/dL (0.2-1); BLOOD UREA NITROGEN 17.9 mg/dL (7-18); CALCIUM 8.5 mg/dL (8.5-10.1); MAGNESIUM 2.2 mg/dL (1.8-2.4); POTASSIUM 4.7 mmol/L (3.5-5.1)
[2019-03-05] MEDS: TAMSULOSIN HCL 0.4 MG CAP PO SCH ×2 (08:57→20:56)
[2019-03-05] MEDS ORDERED: DEXTROSE 5%-WATER - 50 ML IVPB ONE (09:05)
[2019-03-05] MEDS ORDERED: cefTRIAXone SODIUM 1 GM VIAL ONE (09:05)
[2019-03-05] MEDS: CEFTRIAXONE 1 GM in DEXTROSE 5%-WATER - 50 ML IVPB SCH (09:20)
[2019-03-05] MEDS: CARVEDILOL 12.5 MG TABLET (FP) PO SCH ×2 (09:24→21:00)
[2019-03-05] MEDS: LISINOPRIL 20 MG TABLET (FP) PO SCH (09:25)
[2019-03-05] MEDS: HEPARIN NA (PORCINE) 5,000 UNITS/ML 1ML VIAL SQ SCH ×2 (09:32→20:59)
[2019-03-05] MEDS ORDERED: CARVEDILOL 12.5 MG TABLET (FP) PO SCH (10:00)
[2019-03-05] MEDS ORDERED: FUROSEMIDE 40 MG/4 ML INJECTABLE VIAL IVPUSH SCH (10:00)
[2019-03-05] MEDS: TIOTROPIUM BROMIDE 2.5 MCG (SPIRIVA) RESPIMAT INHALER IH SCH (10:07)
--- NOTE | 2019-03-05 11:50 | PN ---
Progress Note (short form) - Note Progress Note: pt seen/ examined moved to tele for Bradycardia feels ok but tired denies cp/sob mild cough + much better he says Vital Signs Temp 97.8 F 03/05/19 10:00 Pulse 58 L 03/05/19 10:00 Resp 20 03/05/19 10:00 BP 113/48 L 03/05/19 10:00 Pulse Ox 95 03/05/19 10:00 Intake & Output 03/04/19 03/04/19 03/05/19 11:59 23:59 11:59 Intake Total 468 50 Balance 468 50 Weight 216 lb 11.2 oz Intake: IVPB 50 Oral 100 50 Oral Supplement 318 Other: Voiding Method Toilet Toilet Toilet # Unmeasured Voids Void 2 1 Bowel Movement No Weight Measurement Method Built in [facility] Active Medications Acetaminophen (Tylenol -) 650 mg PO Q4H PRN PRN Reason: PAIN OR FEVER Albuterol Sulfate (Ventolin 0.083% Nebulizer Soln -) 1 amp NEB Q6H PRN PRN Reason: SHORT OF BREATH/WHEEZING Atorvastatin Calcium (Lipitor -) 20 mg PO HS [facility] Carvedilol (Coreg -) 12.5 mg PO BID [facility] Last Admin: 03/05/19 09:24 Dose: 12.5 mg Cyclobenzaprine HCl (Flexeril -) 10 mg PO TID [facility] Last Admin: 03/05/19 05:36 Dose: 10 mg Furosemide (Lasix Injection -) 40 mg IVPUSH DAILY [facility] Last Admin: 03/05/19 10:06 Dose: 40 mg Heparin Sodium (Porcine) (Heparin -) 5,000 unit SQ BID [facility] Last Admin: 03/05/19 09:32 Dose: 5,000 unit Ceftriaxone Sodium 1 gm/ (Dextrose) 50 mls @ 100 mls/hr IVPB DAILY [facility] Last Admin: 03/05/19 09:20 Dose: 100 mls/hr Insulin Aspart (Novolog Vial Sliding Scale -) 1 vial SQ TIDAC [facility]; Protocol Last Admin: 03/05/19 06:16 Dose: Not Given Insulin Detemir (Levemir Vial) 30 units SQ HS [facility] Lisinopril (Prinivil) 40 mg PO DAILY [facility] Last Admin: 03/05/19 09:25 Dose: 40 mg Tamsulosin HCl (Flomax -) 0.4 mg PO Q12H [facility] Last Admin: 03/05/19 08:57 Dose: 0.4 mg Tiotropium [place] (Spiriva Respimat) 2 puff IH DAILY [facility] Last Admin: 03/05/19 10:07 Dose: 2 puff CBC, BMP 03/05/19 05:54 03/05/19 05:53 Physical Exam Constitutional: Yes: No Distress, comfortable Cardiovascular: Yes: s1, s2 rrr Respiratory: Yes: CTA Bilaterally Gastrointestinal: Yes: Soft, non tender Edema: No Neurological: Yes: Alert, Oriented x 3 A/P 79 year old male with PMH of unspecified cardiac arrhythmia, HTN, HLD, CAD s/p triple bypass, IDDM, COPD, CHF arrived to ED with complain SOB, as per patient SOB has been getting worse over the course of month,went to PMD who sent to ED for further evaluation. # ACUTE CHF exacerbation -CXR elevated R hemidiaphragm, R infiltrate. -US b/l LE: without DVT -Elevated BNP:6583.6 -In ED:given 40mg IV Lasix - continue with O2 via NC - Fluids restriction - Monitor I & O - continue with lasix 40 mg IV push daily better low normal EF on echo OOB daily repeat CXR -- persistant infiltrate #cardiac arrhythmia # HTN, HLD, CAD s/p triple bypas - Doyle tele monitor Hold coreg-- add TSh to lab #DM -monitor -coverage with Novolog sliding scale -continue with Levemir 30 units at HS # COPD Stable - Tiotropium [place] 18 mcg IH BID # BPH - Tamsulosin HCl 0.4 mg PO BID Continue present care abx i/v lasix f/u labs will follow
--- NOTE | 2019-03-05 13:16 | PN ---
Progress Note (short form) - Note Progress Note: s: no chest pain, palps, dizziness, dyspnea Current Medications Acetaminophen (Tylenol -) 650 mg PO Q4H PRN PRN Reason: PAIN OR FEVER Albuterol Sulfate (Ventolin 0.083% Nebulizer Soln -) 1 amp NEB Q6H PRN PRN Reason: SHORT OF BREATH/WHEEZING Atorvastatin Calcium (Lipitor -) 20 mg PO [facility] Carvedilol (Coreg -) 12.5 mg PO BID [facility] Last Admin: 03/05/19 09:24 Dose: 12.5 mg Cyclobenzaprine HCl (Flexeril -) 10 mg PO TID [facility] Last Admin: 03/05/19 05:36 Dose: 10 mg Furosemide (Lasix Injection -) 40 mg IVPUSH DAILY [facility] Last Admin: 03/05/19 10:06 Dose: 40 mg Heparin Sodium (Porcine) (Heparin -) 5,000 unit SQ BID [facility] Last Admin: 03/05/19 09:32 Dose: 5,000 unit Ceftriaxone Sodium 1 gm/ (Dextrose) 50 mls @ 100 mls/hr IVPB DAILY [facility] Last Admin: 03/05/19 09:20 Dose: 100 mls/hr Insulin Aspart (Novolog Vial Sliding Scale -) 1 vial SQ TIDAC [facility]; Protocol Last Admin: 03/05/19 12:30 Dose: 2 unit Insulin Detemir (Levemir Vial) 30 units SQ [facility] Lisinopril (Prinivil) 40 mg PO DAILY [facility] Last Admin: 03/05/19 09:25 Dose: 40 mg Tamsulosin HCl (Flomax -) 0.4 mg PO Q12H [facility] Last Admin: 03/05/19 08:57 Dose: 0.4 mg Tiotropium [place] (Spiriva Respimat) 2 puff IH DAILY [facility] Last Admin: 03/05/19 10:07 Dose: 2 puff Vital Signs Period Temp Pulse Resp BP Sys/Souza Pulse Ox Last 24 Hr 97.4 F-97.8 F 47-90 18-22 111-125/48-69 95-98 Constitutional: Yes: No Distress, Calm Cardiovascular: Yes: Regular Rate and Rhythm Respiratory: Yes: CTA Bilaterally Gastrointestinal: Yes: Soft Edema: No Neurological: Yes: Alert, Oriented no jaundice, diaphoresis not agitated Assessment/Plan echo 03/2018 low nl LVEF, mild inferior hypokinesis, nl RV, mild LAE, mild AR echo 02/2019: mod dec lvef, nl rv, kortney, mild tr, mild ar mibi 2007 inf [place], mildly reduced LV function, no ischemia EKG: sinus, PVCs, old inferior infarct tele: sinus, PVCs bradycardia - improved, coreg dose decreased to 12.5 mg BID - monitoring on tele, if stable likely dc tomorrow acute systolic HF exacerbation - appears euvolemic, transitioned to PO lasix - monitor Cr, lytes, daily weights - echo here shows lvef lower than prior, possibly due to acute chf. repeat echo as outpt - cont bb, norbert CAD - cont statin, bb, ACEI, aspirin DM - manage per primary COPD - manage per primary
[2019-03-05] MEDS: ATORVASTATIN CA 20 MG TABLET (FP) PO SCH (20:59)
[2019-03-05] MEDS: INSULIN (LEVEMIR) 100 UNITS/ML UNITS SQ SCH (20:59)
[2019-03-06] MEDS: CYCLOBENZAPRINE HCL 10 MG TABLET (FP) PO SCH ×3 (06:45→21:00)
[2019-03-06] MEDS: INSULIN SLIDING SCALE (NOVOLOG) 1 VIAL SQ SCH ×3 (06:47→17:12)
[2019-03-06] MEDS ORDERED: DEXTROSE 5%-WATER - 50 ML IVPB ONE (09:17)
[2019-03-06] MEDS ORDERED: cefTRIAXone SODIUM 1 GM VIAL ONE (09:17)
[2019-03-06] MEDS: TAMSULOSIN HCL 0.4 MG CAP PO SCH ×2 (09:43→21:00)
[2019-03-06] MEDS: CARVEDILOL 12.5 MG TABLET (FP) PO SCH ×2 (09:43→21:00)
[2019-03-06] MEDS: FUROSEMIDE 40 MG TABLET (FP) PO SCH (09:43)
[2019-03-06] MEDS: CEFTRIAXONE 1 GM in DEXTROSE 5%-WATER - 50 ML IVPB SCH (09:43)
[2019-03-06] MEDS: LISINOPRIL 20 MG TABLET (FP) PO SCH (09:43)
[2019-03-06] MEDS: HEPARIN NA (PORCINE) 5,000 UNITS/ML 1ML VIAL SQ SCH ×2 (09:43→21:00)
[2019-03-06] MEDS: TIOTROPIUM BROMIDE 2.5 MCG (SPIRIVA) RESPIMAT INHALER IH SCH (09:44)
--- NOTE | 2019-03-06 11:59 | PN ---
Progress Note (short form) - Note Progress Note: pt seen/ examined overall feels better denies cp mild sob - with walking afebrile Frequent Ventricular [place] Vital Signs Temp 98.0 F 03/06/19 10:00 Pulse 90 03/06/19 10:00 Resp 18 03/06/19 10:00 BP 119/48 L 03/06/19 10:00 Pulse Ox 95 03/06/19 10:00 Intake & Output 03/05/19 03/05/19 03/06/19 11:59 23:59 11:59 Intake Total 50 1100 240 Balance 50 1100 240 Weight 211 lb 8 oz Intake: Oral 50 1100 240 Other: Voiding Method Toilet Toilet Toilet # Unmeasured Voids Void 1 1 2 Bowel Movement No Weight Measurement Method Standing Scale Active Medications Acetaminophen (Tylenol -) 650 mg PO Q4H PRN PRN Reason: PAIN OR FEVER Albuterol Sulfate (Ventolin 0.083% Nebulizer Soln -) 1 amp NEB Q6H PRN PRN Reason: SHORT OF BREATH/WHEEZING Atorvastatin Calcium (Lipitor -) 20 mg PO HS [facility] Last Admin: 03/05/19 20:59 Dose: 20 mg Carvedilol (Coreg -) 12.5 mg PO BID [facility] Last Admin: 03/06/19 09:43 Dose: 12.5 mg Cyclobenzaprine HCl (Flexeril -) 10 mg PO TID [facility] Last Admin: 03/06/19 06:45 Dose: 10 mg Furosemide (Lasix -) 40 mg PO DAILY [facility] Last Admin: 03/06/19 09:43 Dose: 40 mg Heparin Sodium (Porcine) (Heparin -) 5,000 unit SQ BID [facility] Last Admin: 03/06/19 09:43 Dose: 5,000 unit Ceftriaxone Sodium 1 gm/ (Dextrose) 50 mls @ 100 mls/hr IVPB DAILY [facility] Last Admin: 03/06/19 09:43 Dose: 100 mls/hr Insulin Aspart (Novolog Vial Sliding Scale -) 1 vial SQ TIDAC [facility]; Protocol Last Admin: 03/06/19 06:47 Dose: Not Given Insulin Detemir (Levemir Vial) 30 units SQ HS [facility] Last Admin: 03/05/19 20:59 Dose: 30 units Lisinopril (Prinivil) 40 mg PO DAILY [facility] Last Admin: 03/06/19 09:43 Dose: 40 mg Tamsulosin HCl (Flomax -) 0.4 mg PO Q12H [facility] Last Admin: 03/06/19 09:43 Dose: 0.4 mg Tiotropium [place] (Spiriva Respimat) 2 puff IH DAILY [facility] Last Admin: 03/06/19 09:44 Dose: 2 puff CBC, BMP 03/05/19 05:54 03/05/19 05:53 Physical Exam Constitutional: Yes: No Distress, comfortable Cardiovascular: Yes: s1, s2 rrr Respiratory: Yes: Diminished at bases Gastrointestinal: Yes: Soft, non tender Edema: No Neurological: Yes: Alert, Oriented x 3 A/P 79 year old male with PMH of unspecified cardiac arrhythmia, HTN, HLD, CAD s/p triple bypass, IDDM, COPD, CHF arrived to ED with complain SOB, as per patient SOB has been getting worse over the course of month,went to PMD who sent to ED for further evaluation. 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
--- NOTE | 2019-03-06 13:17 | PN ---
Progress Note (short form) - Note Progress Note: s: no chest pain, palps, dizziness, dyspnea Current Medications Acetaminophen (Tylenol -) 650 mg PO Q4H PRN PRN Reason: PAIN OR FEVER Albuterol Sulfate (Ventolin 0.083% Nebulizer Soln -) 1 amp NEB Q6H PRN PRN Reason: SHORT OF BREATH/WHEEZING Atorvastatin Calcium (Lipitor -) 20 mg PO [facility] Last Admin: 03/05/19 20:59 Dose: 20 mg Carvedilol (Coreg -) 12.5 mg PO BID [facility] Last Admin: 03/06/19 09:43 Dose: 12.5 mg Cyclobenzaprine HCl (Flexeril -) 10 mg PO TID [facility] Last Admin: 03/06/19 06:45 Dose: 10 mg Furosemide (Lasix -) 40 mg PO DAILY [facility] Last Admin: 03/06/19 09:43 Dose: 40 mg Heparin Sodium (Porcine) (Heparin -) 5,000 unit SQ BID [facility] Last Admin: 03/06/19 09:43 Dose: 5,000 unit Ceftriaxone Sodium 1 gm/ (Dextrose) 50 mls @ 100 mls/hr IVPB DAILY [facility] Last Admin: 03/06/19 09:43 Dose: 100 mls/hr Insulin Aspart (Novolog Vial Sliding Scale -) [facility] Last Admin: 03/06/19 12:14 Dose: Not Given Insulin Detemir (Levemir Vial) 30 units SQ [facility] Last Admin: 03/05/19 20:59 Dose: 30 units Lisinopril (Prinivil) 40 mg PO DAILY [facility] Last Admin: 03/06/19 09:43 Dose: 40 mg Tamsulosin HCl (Flomax -) 0.4 mg PO Q12H [facility] Last Admin: 03/06/19 09:43 Dose: 0.4 mg Tiotropium [place] (Spiriva Respimat) 2 puff IH DAILY [facility] Last Admin: 03/06/19 09:44 Dose: 2 puff Vital Signs Period Temp Pulse Resp BP Sys/Souza Pulse Ox Last 24 Hr 97.3 F-98.7 F 45-92 18-20 109-131/48-96 93-96 Constitutional: Yes: No Distress, Calm Cardiovascular: Yes: Regular Rate and Rhythm Respiratory: Yes: CTA Bilaterally Gastrointestinal: Yes: Soft Edema: No Neurological: Yes: Alert, Oriented no jaundice, diaphoresis not agitated Assessment/Plan echo 03/2018 low nl LVEF, mild inferior hypokinesis, nl RV, mild LAE, mild AR echo 02/2019: mod dec lvef, nl rv, kortney, mild tr, mild ar mibi 2007 inf NV, mildly reduced LV function, no ischemia EKG: sinus, PVCs, old inferior infarct tele: sinus, PVCs, bigeminy bradycardia - improved, coreg dose decreased to 12.5 mg BID - monitoring on tele, improved. likely dc tomorrow acute systolic HF exacerbation - appears euvolemic, transitioned to PO lasix - monitor Cr, lytes, daily weights - echo here shows lvef lower than prior, possibly due to acute chf. repeat echo as outpt - cont bb, norbert CAD - cont statin, bb, ACEI, aspirin DM - manage per primary COPD - manage per primary
[2019-03-06] MEDS: ATORVASTATIN CA 20 MG TABLET (FP) PO SCH (21:00)
[2019-03-06] MEDS: INSULIN (LEVEMIR) 100 UNITS/ML UNITS SQ SCH (21:05)
[2019-03-07] MEDS: INSULIN SLIDING SCALE (NOVOLOG) 1 VIAL SQ SCH ×3 (06:09→17:59)
[2019-03-07] MEDS: CYCLOBENZAPRINE HCL 10 MG TABLET (FP) PO SCH ×2 (06:09→14:11)
[2019-03-07] MEDS ORDERED: PT OWN MED DRAWER 7, Y5N ONE (10:19)
[2019-03-07] MEDS ORDERED: cefTRIAXone SODIUM 1 GM VIAL ONE (10:19)
[2019-03-07] MEDS ORDERED: DEXTROSE 5%-WATER - 50 ML IVPB ONE (10:19)
[2019-03-07] MEDS: FUROSEMIDE 40 MG TABLET (FP) PO SCH (10:21)
[2019-03-07] MEDS: TAMSULOSIN HCL 0.4 MG CAP PO SCH (10:21)
[2019-03-07] MEDS: CEFTRIAXONE 1 GM in DEXTROSE 5%-WATER - 50 ML IVPB SCH (10:21)
[2019-03-07] MEDS: LISINOPRIL 20 MG TABLET (FP) PO SCH (10:21)
[2019-03-07] MEDS: HEPARIN NA (PORCINE) 5,000 UNITS/ML 1ML VIAL SQ SCH (10:21)
[2019-03-07] MEDS: CARVEDILOL 12.5 MG TABLET (FP) PO SCH (10:21)
[2019-03-07] MEDS: TIOTROPIUM BROMIDE 2.5 MCG (SPIRIVA) RESPIMAT INHALER IH SCH (10:22)
--- NOTE | 2019-03-07 11:21 | PN ---
Progress Note (short form) - Note Progress Note: s: no cp sob palps dizzy Vital Signs Period Temp Pulse Resp BP Sys/Souza Pulse Ox Last 24 Hr 97.4 F-98.9 F 81-100 18-20 102-154/51-94 92-94 Constitutional: Yes: No Distress, Calm Eyes: Yes: Conjunctiva Neck: Yes: Supple, Trachea Midline Respiratory: Yes: Regular, CTA Bilaterally nl eff Gastrointestinal: Yes: Normal Bowel Sounds, Soft Cardiovascular: Yes: Pulse Irregular JVD: No Heart Sounds: Yes: S1, S2 Extremities: No: Cold Edema: trace le edema bl Integumentary: No: Jaundice Neurological: Yes: Alert, Oriented Psychiatric: No: Agitated Current Medications Generic Name Dose Route Start Last Admin Trade Name Freq PRN Reason Stop Dose Admin Acetaminophen 650 mg 03/04/19 22:14 Tylenol - PO Q4H PRN PAIN OR FEVER Albuterol Sulfate 1 amp 03/04/19 22:14 Ventolin 0.083% Nebulizer Soln - NEB Q6H PRN SHORT OF BREATH/WHEEZING Atorvastatin Calcium 20 mg 03/05/19 22:00 03/06/19 21:00 Lipitor - PO 20 mg HS RIKKI Administration Carvedilol 12.5 mg 03/05/19 10:00 03/07/19 10:21 Coreg - PO 12.5 mg BID RIKKI Administration Cyclobenzaprine HCl 10 mg 03/05/19 06:00 03/07/19 06:09 Flexeril - PO 10 mg TID RIKKI Administration Furosemide 40 mg 03/06/19 10:00 03/07/19 10:21 Lasix - PO 40 mg DAILY RIKKI Administration Heparin Sodium (Porcine) 5,000 unit 03/05/19 10:00 03/07/19 10:21 Heparin - SQ 5,000 unit BID RIKKI Administration Ceftriaxone Sodium 1 gm/ 50 mls @ 100 mls/hr 03/05/19 10:00 03/07/19 10:21 Dextrose IVPB 100 mls/hr DAILY RIKKI Administration Insulin Aspart 1 vial 03/05/19 07:00 03/07/19 06:09 Novolog Vial Sliding Scale - SQ Not Given [facility] Protocol Insulin Detemir 30 units 03/05/19 22:00 03/06/19 21:05 Levemir Vial SQ 30 units HS RIKKI Administration Lisinopril 40 mg 03/05/19 10:00 03/07/19 10:21 Prinivil PO 40 mg DAILY [facility] Administration Tamsulosin HCl 0.4 mg 03/05/19 08:30 03/07/19 10:21 Flomax - PO 0.4 mg Q12H RIKKI Administration Tiotropium [place] 2 puff 03/05/19 10:00 03/07/19 10:22 Spiriva Respimat IH 2 puff DAILY RIKKI Administration Laboratory Last Values WBC 8.4 K/mm3 (4.0-10.0) 03/05/19 05:54 RBC 5.03 M/mm3 (4.00-5.60) 03/05/19 05:54 Hgb 15.0 GM/dL (11.7-16.9) 03/05/19 05:54 Hct 44.7 % (35.4-49) 03/05/19 05:54 MCV 88.8 fl (80-96) 03/05/19 05:54 MCH 29.7 pg (25.7-33.7) 03/05/19 05:54 MCHC 33.5 g/dl (32.0-35.9) 03/05/19 05:54 RDW 13.5 % (11.9-15.9) 03/05/19 05:54 Plt Count 281 K/MM3 (134-434) 03/05/19 05:54 MPV 9.8 fl (7.5-11.1) 03/05/19 05:54 Absolute Neuts (auto) 5.7 K/mm3 (1.5-8.0) 03/05/19 05:54 Neutrophils % 68.3 % (42.8-82.8) 03/05/19 05:54 Lymphocytes % 24.6 % (8-40) 03/05/19 05:54 Monocytes % 6.3 % (3.8-10.2) 03/05/19 05:54 Eosinophils % 0.4 % (0-4.5) D 03/05/19 05:54 Basophils % 0.4 % (0-2.0) 03/05/19 05:54 Nucleated RBC % 0 % (0-0) 03/05/19 05:54 PT with INR 14.90 SEC (9.7-13.0) H 02/28/19 17:30 INR 1.26 (0.83-1.09) H 02/28/19 17:30 PTT (Actin FS) 33.9 SECONDS (25.2-36.5) 02/28/19 17:30 Sodium 140 mmol/L (136-145) 03/05/19 05:53 Potassium 4.7 mmol/L (3.5-5.1) 03/05/19 05:53 Chloride 104 mmol/L (98-107) 03/05/19 05:53 Carbon Dioxide 29 mmol/L (21-32) 03/05/19 05:53 Anion Gap 7 MMOL/L (8-16) L 03/05/19 05:53 BUN 17.9 mg/dL (7-18) 03/05/19 05:53 Creatinine 1.0 mg/dL (0.55-1.3) 03/05/19 05:53 Est GFR (CKD-EPI)AfAm 82.02 03/05/19 05:53 Est GFR (CKD-EPI)NonAf 70.77 03/05/19 05:53 POC Glucometer 79 UNITS (80-120) 03/07/19 05:35 Random Glucose 91 mg/dL (74-106) 03/05/19 05:53 Calcium 8.5 mg/dL (8.5-10.1) 03/05/19 05:53 Phosphorus 3.3 mg/dL (2.5-4.9) 02/28/19 17:30 Magnesium 2.2 mg/dL (1.8-2.4) 03/05/19 05:53 Total Bilirubin 1.2 mg/dL (0.2-1) H 03/05/19 05:53 AST 13 U/L (15-37) L 03/05/19 05:53 ALT 21 U/L (13-61) 03/05/19 05:53 Alkaline Phosphatase 97 U/L (45-117) 03/05/19 05:53 Creatine Kinase 68 U/L (26-308) 03/01/19 12:30 Troponin I < 0.02 ng/ml (0.00-0.05) 03/01/19 12:30 B-Natriuretic Peptide 6583.6 pg/ml (5-450) H 02/28/19 17:30 Total Protein 6.0 g/dl (6.4-8.2) L 03/05/19 05:53 Albumin 3.1 g/dl (3.4-5.0) L 03/05/19 05:53 TSH 1.60 uIU/ml (0.358-3.74) 03/05/19 05:53 echo 03/2018 low nl LVEF, mild inferior hypokinesis, nl RV, mild LAE, mild AR echo 02/2019: mod dec lvef, nl rv, kortney, mild tr, mild ar mibi 2007 inf LA, mildly reduced LV function, no ischemia EKG: sinus, PVCs, old inferior infarct tele: sinus, PVCs bradycardia - improved, coreg dose decreased to 12.5 mg BID acute systolic HF exacerbation - appears euvolemic, transitioned to PO lasix - echo here shows lvef lower than prior, possibly due to acute chf. repeat echo as outpt - cont bb, norbert CAD - cont statin, bb, ACEI, aspirin DM - manage per primary COPD - manage per primary pvcs: -asymptomatic. cont bb.
--- NOTE | 2019-03-07 13:42 | DS ---
Physical Examination Vital Signs: Vital Signs Temperature 98.1 F 03/07/19 09:05 Pulse Rate 91 H 03/07/19 09:05 Respiratory Rate 18 03/07/19 09:05 Blood Pressure 120/56 L 03/07/19 09:05 O2 Sat by Pulse Oximetry (%) 92 L 03/07/19 08:37 Findings/Remarks: pt seen/ examined feels better denies cp breathing stable Constitutional: Yes: No Distress Eyes: Yes: Conjunctiva Clear Neck: Yes: Supple Cardiovascular: Yes: Regular Rate and Rhythm Respiratory: Yes: CTA Bilaterally Gastrointestinal: Yes: Soft Edema: No Neurological: Yes: Alert Psychiatric: Yes: Alert Labs: CBC, BMP 03/05/19 05:54 03/05/19 05:53 Discharge Summary Problems reviewed: Yes Reason For Visit: SOB/ACUTE ON CHRONIC CONGESTIVE HEART FAILURE Current Active Problems Acute CHF (Acute) CAD (coronary artery disease) (Acute) CHF exacerbation (Acute) COPD (chronic obstructive pulmonary disease) (Acute) Cardiac arrhythmia (Acute) Diabetes (Acute) HLD (hyperlipidemia) (Acute) HTN (hypertension) (Acute) SOB (shortness of breath) (Acute) Hospital Course: 79 year old male with PMH of unspecified cardiac arrhythmia, HTN, HLD, CAD s/p triple bypass, IDDM, COPD, CHF arrived to ED with complain SOB, as per patient SOB has been getting worse over the course of month,went to PMD who sent to ED for further evaluation. Pt found to have PNEUMONIA as well as CHf Problems # ACUTE CHF exacerbation #cardiac arrhythmia #DM # COPD #Pneumonia # BPH Treated with diuretics/ abx better stable for d/c check pre/post exercise oxygen level f/u cxr - Persistent infiltrate -- No worsening. will d/c on po abx pt need to have f/u cxr in 4 weeks to document clearing of pneumonia-- Explained to pt also. d/w RN also Anticipate d/c later today Condition: Guarded - Instructions Referrals: Howard Nguyen MD [Primary Care Provider] - Disposition: HOME - Home Medications Comprehensive Discharge Medication List: Ambulatory Orders Aspirin 81 mg PO DAILY 01/09/14 Carvedilol 25 mg PO BID tablet 01/09/14 Insulin Glargine,Hum.rec.anlog [Lantus] 60 unit SQ DAILY vial 01/09/14 Tamsulosin HCl [Flomax] 0.4 mg PO BID 01/09/14 Atorvastatin Ca [Lipitor] 20 mg PO HS 07/09/16 Cyclobenzaprine HCl [Flexeril -] 10 mg PO TID 07/09/16 Hydrocodone/Acetaminophen [Vicodin Es 7.5-300 mg Tablet] 1 each PO Q6H PRN 07/09 Insulin Lispro [Humalog] 50 unit SQ DAILY 07/09/16 Lisinopril [Prinivil -] 40 mg PO DAILY 07/09/16 Tiotropium [place] [Spiriva] 18 mcg IH BID 02/28/19 Acetaminophen [Tylenol .Regular Strength -] 650 mg PO Q4H PRN tablet 03/07/19 Albuterol 0.083% Nebulizer [place] [Ventolin 0.083% Nebulizer Soln -] 1 amp NEB Q6H PRN #60 amp 03/07/19 Carvedilol [Coreg -] 12.5 mg PO BID 30 Days #60 tablet 03/07/19 Furosemide [Lasix -] 40 mg PO DAILY tablet 03/07/19 Insulin (Levemir) [Levemir Vial] 30 units SQ HS units 03/07/19 Levofloxacin [Levaquin] 500 mg PO DAILY #5 tablet 03/07/19 Nebulizer and Compressor [[place] Choice Nebulizer] 1 each MC PRN PRN #1 each
--- NOTE | 2019-03-07 13:43 | PN ---
Progress Note (short form) - Note Progress Note: Vital Signs Temp 98.1 F 03/07/19 09:05 Pulse 91 H 03/07/19 09:05 Resp 18 03/07/19 09:05 BP 120/56 L 03/07/19 09:05 Pulse Ox 92 L 03/07/19 08:37 Intake & Output 03/06/19 03/07/19 03/07/19 23:59 11:59 23:59 Intake Total 940 470 Balance 940 470 Weight 207 lb Intake: IVPB 100 Oral 840 470 Other: Voiding Method Toilet Toilet # Unmeasured Voids Void 2 Bowel Movement No No Weight Measurement Method Standing Scale Active Medications Acetaminophen (Tylenol -) 650 mg PO Q4H PRN PRN Reason: PAIN OR FEVER Albuterol Sulfate (Ventolin 0.083% Nebulizer Soln -) 1 amp NEB Q6H PRN PRN Reason: SHORT OF BREATH/WHEEZING Atorvastatin Calcium (Lipitor -) 20 mg PO HS [facility] Last Admin: 03/06/19 21:00 Dose: 20 mg Carvedilol (Coreg -) 12.5 mg PO BID [facility] Last Admin: 03/07/19 10:21 Dose: 12.5 mg Cyclobenzaprine HCl (Flexeril -) 10 mg PO TID [facility] Last Admin: 03/07/19 06:09 Dose: 10 mg Furosemide (Lasix -) 40 mg PO DAILY [facility] Last Admin: 03/07/19 10:21 Dose: 40 mg Heparin Sodium (Porcine) (Heparin -) 5,000 unit SQ BID [facility] Last Admin: 03/07/19 10:21 Dose: 5,000 unit Ceftriaxone Sodium 1 gm/ (Dextrose) 50 mls @ 100 mls/hr IVPB DAILY [facility] Last Admin: 03/07/19 10:21 Dose: 100 mls/hr Insulin Aspart (Novolog Vial Sliding Scale -) 1 vial SQ TIDAC [facility]; Protocol Last Admin: 03/07/19 12:06 Dose: 4 unit Insulin Detemir (Levemir Vial) 30 units SQ HS [facility] Last Admin: 03/06/19 21:05 Dose: 30 units Lisinopril (Prinivil) 40 mg PO DAILY [facility] Last Admin: 03/07/19 10:21 Dose: 40 mg Tamsulosin HCl (Flomax -) 0.4 mg PO Q12H [facility] Last Admin: 03/07/19 10:21 Dose: 0.4 mg Tiotropium [place] (Spiriva Respimat) 2 puff IH DAILY [facility] Last Admin: 03/07/19 10:22 Dose: 2 puff CBC, BMP 03/05/19 05:54 03/05/19 05:53 cxr- Infiltrate - no change
[2019-03-07 14:00] VITALS: BP 101/42; TEMP 97.7
[2019-03-07 15:49] VITALS: PULSE 55
== END 2019-03-07 18:00 | disposition home or self-care (01) | DRG 291 ==
LOC: JER 16:49 → JERBED 20:23 → J8W 03-01 13:30 → J4S 03-04 21:56
PROVIDERS: ADMIT Internal Medicine; ATTEND Internal Medicine
DX: I11.0 Hypertensive heart disease with heart failure (principal); J18.9 Pneumonia, unspecified organism; I25.10 Atherosclerotic heart disease of native coronary artery without angina pectoris; I50.23 Acute on chronic systolic (congestive) heart failure; J44.9 Chronic obstructive pulmonary disease, unspecified; E78.5 Hyperlipidemia, unspecified; N40.0 Benign prostatic hyperplasia without lower urinary tract symptoms; I49.9 Cardiac arrhythmia, unspecified; E11.9 Type 2 diabetes mellitus without complications; R94.31 Abnormal electrocardiogram [ECG] [EKG]; R00.1 Bradycardia, unspecified; Z95.1 Presence of aortocoronary bypass graft; Z79.4 Long term (current) use of insulin
CPT/HCPCS: 36415; 71045-TC-FY; 71046-TC-FY; 80048; 80053; 82550; 82962; 83735; 83880; 84100; 84443; 84484; 85025; 85027; 85610; 85730; 87899; 93005; 93010; 93225; 93226; 93306-TC; 93970-TC; 94761; 99285-25; G0008; J1644; Q2036

== ENCOUNTER 2019-04-09 22:29 | Inpatient (IN) | payer OTHER, MEDICARE ==
[2019-04-09 22:43] VITALS: BMI 29.9
--- NOTE | 2019-04-09 22:50 | PDOC ---
History of Present Illness - General Chief Complaint: Chest Pain Stated Complaint: shoulder pain Time Seen by Provider: 04/09/19 22:49 History Source: Patient - History of Present Illness Initial Comments: 04/09/19 23:10 Mr. Mesa is an 79M with hx CAD, HTN, HLD, prior [place], s/p CABG, COPD, multiple cardiac stenting with recent admission for CHF exacerbation presenting today with L shoulder pain alongside worsening swelling in his lower extremities and shortness of breath. He reports that the pain in his shoulder is 1/10, constant , aching and started tonight suddenly. He reports that his legs have swollen in the past, and he reports being started on a diuretic by his [employer] Copyist (Dr. Herrera) after his recent discharge on 03/10/19. He reports that he has been consistently taking his medications since discharge. He denies any pain in his chest, any nausea, vomiting, fatigue, weakness. Past History - Past Medical History Allergies/Adverse Reactions: Allergies Allergy/AdvReac Type Severity Reaction Status Date / Time No Known Allergies Allergy Unverified 04/09/19 22:43 Home Medications: Ambulatory Orders Aspirin 81 mg PO DAILY 01/09/14 Carvedilol 25 mg PO BID tablet 01/09/14 Insulin Glargine,Hum.rec.anlog [Lantus] 60 unit SQ DAILY vial 01/09/14 Tamsulosin HCl [Flomax] 0.4 mg PO BID 01/09/14 Atorvastatin Ca [Lipitor] 20 mg PO HS 07/09/16 Cyclobenzaprine HCl [Flexeril -] 10 mg PO TID 07/09/16 Hydrocodone/Acetaminophen [Vicodin Es 7.5-300 mg Tablet] 1 each PO Q6H PRN 07/09 Insulin Lispro [Humalog] 50 unit SQ DAILY 07/09/16 Lisinopril [Prinivil -] 40 mg PO DAILY 07/09/16 Tiotropium [place] [Spiriva] 18 mcg IH BID 02/28/19 Acetaminophen [Tylenol .Regular Strength -] 650 mg PO Q4H PRN tablet 03/07/19 Albuterol 0.083% Nebulizer [place] [Ventolin 0.083% Nebulizer Soln -] 1 amp NEB Q6H PRN #60 amp 03/07/19 Carvedilol [Coreg -] 12.5 mg PO BID 30 Days #60 tablet 03/07/19 Furosemide [Lasix -] 40 mg PO DAILY tablet 03/07/19 Insulin (Levemir) [Levemir Vial] 30 units SQ HS units 03/07/19 Levofloxacin [Levaquin] 500 mg PO DAILY #5 tablet 03/07/19 Nebulizer and Compressor [[place] Choice Nebulizer] 1 each MC PRN PRN #1 each Anemia: No Asthma: No Cancer: No Cardiac Disorders: Yes (TRIPLE BYPASS SURGERY 2005) CVA: No COPD: No CHF: No Dementia: No Diabetes: Yes (IDDM) GI Disorders: No Disorders: No HTN: No Hypercholesterolemia: No Liver Disease: No Seizures: No Thyroid Disease: No - Surgical History Cardiac Surgery: Yes (OPEN HEART SURGERY) - Immunization History Immunization Up to Date: Yes - Psycho Social/Smoking Cessation Hx Smoking History: Former smoker Have you smoked in the past 12 months: No If you are a former smoker, when did you quit?: 50 yrs ago Information on smoking cessation initiated: No Hx Alcohol Use: No Drug/Substance Use Hx: No Substance Use Type: None Hx Substance Use Treatment: No Review of Systems - Review of Systems Able to Perform ROS?: Yes Comments:: 04/09/19 23:35 ROS: GENERAL/CONSTITUTIONAL: No fever or chills. No weakness. HEAD, EYES, EARS, NOSE AND THROAT: No change in vision. No ear pain or discharge. No sore throat. CARDIOVASCULAR: Chest pain, shortness of breath RESPIRATORY: No cough, wheezing, or hemoptysis. GASTROINTESTINAL: No nausea, vomiting, diarrhea or constipation. GENITOURINARY: No dysuria, frequency, or change in urination. MUSCULOSKELETAL: L shoulder pain. No other joint or muscle swelling or pain. No neck or back pain. SKIN: No rash NEUROLOGIC: No headache, vertigo, loss of consciousness, or change in strength/ sensation. ENDOCRINE: No increased thirst. No abnormal weight change HEMATOLOGIC/LYMPHATIC: No anemia, easy bleeding, or history of blood clots. ALLERGIC/IMMUNOLOGIC: No hives or skin allergy. *Physical Exam - Vital Signs Last Vital Signs Temp Pulse Resp BP Pulse Ox 97.6 F 50 L 22 H 116/72 92 L 04/09/19 22:33 04/09/19 22:33 04/09/19 22:33 04/09/19 22:33 04/09/19 22:33 - Physical Exam Comments: 04/09/19 23:36 PE: GENERAL: Awake, alert, and fully oriented, mild shortness of breath. No accessory muscle use. HEAD: No signs of trauma, normocephalic, atraumatic EYES: PERRLA, EOMI, sclera anicteric, conjunctiva clear ENT: Auricles normal inspection, hearing grossly normal, nares patent, oropharynx clear without exudates. Moist mucosa NECK: Normal ROM, supple, no lymphadenopathy, JVD, or masses LUNGS: Speaks full sentences, Diminished lung sounds to bilateral bases HEART: Irregularly irregular rhythm, no other murmurs, rubs or gallops, peripheral pulses normal and equal bilaterally. ABDOMEN: Soft, nontender, normoactive bowel sounds. No guarding, no rebound. No masses EXTREMITIES : Bilateral 1+ pitting edema. Normal range of motion. No clubbing or cyanosis NEUROLOGICAL: Cranial nerves II through XII grossly intact. Normal speech, normal gait, no focal sensorimotor deficits SKIN: Warm, Dry, normal turgor, no rashes or lesions noted Heart Score/ECG Review - History History: Slightly suspicious - Electrocardiogram EKG: Non specific repolarization disturbance - Age Age: >/= 65 - Risk Factors Risk Factors Heart Score: Yes Hx Hypercholesterolemia, Yes Hx Hypertension, Yes Hx Diabetes Based on the list above the patient has:: >/=3 risk factors or Hx atherosclerotic disease - Troponin Troponin: </= normal limit - Score Heart Score - Total: 5 - ECG Intrepretation Rhythm: Irregularly Irregular - ECG Impressions Normal ECG: No Non-specific ST Elevation: No Ischemic Changes: No Bradycardia: Yes (baseline per prior admission) ED Treatment Course - LABORATORY CBC & Chemistry Diagram: 04/09/19 23:35 04/09/19 23:35 Medical Decision Making - Medical Decision Making 04/09/19 23:14 79M with extensive cardiac history including CABG, CHF, COPD, multiple cardiac stenting p/w one week of shortness of breath worse while laying flat, one day of R shoulder pain most consistent with CHF exacerbation. Differential includes ACS given cardiac history. Of note, bradycardia appears baseline from prior admission. Plan: CBC CMP EKG CXR Cardiac profile BNP Cardiac, Pulmonary bedside Ultrasound Dispo: Admit obs 04/10/19 00:18 Trop negative BNP - 3791 --- Patient admitted to telemetry obs. Discharge - Discharge Information Problems reviewed: Yes Clinical Impression/Diagnosis: CHF exacerbation Qualifiers: Heart failure type: unspecified Qualified Code(s): I50.9 - Heart failure, unspecified Condition: Stable - Admission Yes - Follow up/Referral - Patient Discharge Instructions - Post Discharge Activity
[2019-04-09 23:48] LABS: EOS % 0.2 % (0-4.5); HEMATOCRIT 40.1 % (35.4-49); HEMOGLOBIN 13.2 GM/dL (11.7-16.9); LYMPH % 20.2 % (8-40); MCH 30.1 pg (25.7-33.7); MEAN CELL VOLUME 91.2 fl (80-96); MEAN PLT VOLUME 10.8 fl (7.5-11.1); MONO % 4.8 % (3.8-10.2); NEUT % 73.8 % (42.8-82.8); PLATELET COUNT 295 K/MM3 (134-434); RDW 13.7 % (11.9-15.9); WHITE BLOOD COUNT 11.9 K/mm3 (4.0-10.0)
[2019-04-10 00:15] LABS: ALBUMIN 3.3 g/dl (3.4-5.0); BILIRUBIN,TOTAL 0.6 mg/dL (0.2-1); BLOOD UREA NITROGEN 22.2 mg/dL (7-18); CALCIUM 8.8 mg/dL (8.5-10.1); CREATININE 1.2 mg/dL (0.55-1.3); POTASSIUM 4.5 mmol/L (3.5-5.1); TOT PROT 6.1 g/dl (6.4-8.2)
--- NOTE | 2019-04-10 01:11 | HP ---
Admitting History and Physical - Primary Care Physician PCP: Dr. Jacobsen - Admission Chief Complaint: Left shoulder pain radiating to chest, SOB History of Present Illness: 79M with PMhx COPD,HTN, HLD, prior [place], s/p CABG, CAD with multiple cardiac stenting in past, patient with recent admission 02/2019 for CHF exacerbation presenting today with L shoulder pain radiating down to chest, SOB and swelling B/L LE. Patient reports shoulder pain is constant, aching and started suddenly tonight. Patient reports taking diuretic (lasix 40mg daily) for b/l LE edema, being compliant with medication. Pt Fha Underwriter is (Dr. Herrera). Patient denies any pain in his chest, any nausea, vomiting, fatigue, weakness. History Source: Patient Limitations to Obtaining History: No Limitations - Past Medical History Cardiovascular: Yes: CAD (s/p triple bypass,), CHF, HTN, Hyperlipdemia, Other ( cardiac arrhythmia) Pulmonary: Yes: COPD Renal/: Yes: BPH Endocrine: Yes: Diabetes Mellitus - Past Surgical History Past Surgical History: Yes: Bypass (TRIPLE BYPASS SURGERY 2005) - Smoking History Smoking history: Former smoker Have you smoked in the past 12 months: No If you are a former smoker, when did you quit?: 50 yrs ago - Alcohol/Substance Use Hx Alcohol Use: No History of Substance Use: reports: None - Social History Usual Living Arrangement: Yes: With Child ADL: Independent History of Recent Travel: No Home Medications - Allergies Allergies/Adverse Reactions: Allergies Allergy/AdvReac Type Severity Reaction Status Date / Time No Known Allergies Allergy Unverified 04/09/19 22:43 - Home Medications Home Medications: Ambulatory Orders Aspirin 81 mg PO DAILY 01/09/14 Carvedilol 25 mg PO BID tablet 01/09/14 Insulin Glargine,Hum.rec.anlog [Lantus] 60 unit SQ DAILY vial 01/09/14 Tamsulosin HCl [Flomax] 0.4 mg PO BID 01/09/14 Atorvastatin Ca [Lipitor] 20 mg PO HS 07/09/16 Cyclobenzaprine HCl [Flexeril -] 10 mg PO TID 07/09/16 Hydrocodone/Acetaminophen [Vicodin Es 7.5-300 mg Tablet] 1 each PO Q6H PRN 07/09 Insulin Lispro [Humalog] 50 unit SQ DAILY 07/09/16 Lisinopril [Prinivil -] 40 mg PO DAILY 07/09/16 Tiotropium [place] [Spiriva] 18 mcg IH BID 02/28/19 Acetaminophen [Tylenol .Regular Strength -] 650 mg PO Q4H PRN tablet 03/07/19 Albuterol 0.083% Nebulizer Yari [Ventolin 0.083% Nebulizer Soln -] 1 amp NEB Q6H PRN #60 amp 03/07/19 Carvedilol [Coreg -] 12.5 mg PO BID 30 Days #60 tablet 03/07/19 Furosemide [Lasix -] 40 mg PO DAILY tablet 03/07/19 Insulin (Levemir) [Levemir Vial] 30 units SQ HS units 03/07/19 Levofloxacin [Levaquin] 500 mg PO DAILY #5 tablet 03/07/19 Nebulizer and Compressor [[place] Choice Nebulizer] 1 each MC PRN PRN #1 each Family Medical History Family History: Denies Review of Systems - Review of Systems Constitutional: reports: No Symptoms Eyes: reports: No Symptoms HENT: reports: No Symptoms Neck: reports: No Symptoms Cardiovascular: reports: Shortness of Breath Respiratory: reports: No Symptoms Gastrointestinal: reports: No Symptoms Genitourinary: reports: No Symptoms Musculoskeletal: reports: Extremity Pain (Left shoulder pain - radiating down to chest) Integumentary: reports: No Symptoms Neurological: reports: No Symptoms Endocrine: reports: No Symptoms Hematology/Lymphatic: reports: No Symptoms Psychiatric: reports: No Symptoms Physical Examination Vital Signs: Vital Signs Temperature 97.6 F 04/09/19 22:33 Pulse Rate 50 L 04/09/19 22:33 Respiratory Rate 22 H 04/09/19 22:33 Blood Pressure 116/72 04/09/19 22:33 O2 Sat by Pulse Oximetry (%) 92 L 04/09/19 22:33 Constitutional: Yes: No Distress, Calm Eyes: Yes: Conjunctiva Clear, EOM Intact HENT: Yes: Atraumatic, Normocephalic Neck: Yes: Supple, Trachea Midline Cardiovascular: Yes: Bradycardia, S1, S2 Respiratory: Yes: Regular, CTA Bilaterally Gastrointestinal: Yes: Normal Bowel Sounds, Soft Musculoskeletal: Yes: WNL Extremities: Yes: WNL Edema: Yes Edema: LLE: 2+, RLE: 3+ Peripheral Pulses WNL: Yes Neurological: Yes: Alert, Oriented Labs: CBC, BMP 04/09/19 23:35 04/09/19 23:35 Imaging - Results EKG: Report Reviewed (Sinus rhythm, no s/t changes, trop negative) Problem List - Problems (1) Chest pain, rule out acute myocardial infarction Code(s): R07.9 - CHEST PAIN, UNSPECIFIED (2) Left shoulder pain Code(s): M25.512 - PAIN IN LEFT SHOULDER (3) CHF exacerbation Code(s): I50.9 - HEART FAILURE, UNSPECIFIED Qualifiers: Heart failure type: unspecified Qualified Code(s): I50.9 - Heart failure, unspecified (4) CAD (coronary artery disease) Code(s): I25.10 - ATHSCL HEART DISEASE OF [place] CORONARY ARTERY W/O ANG PCTRS (5) COPD (chronic obstructive pulmonary disease) Code(s): J44.9 - CHRONIC OBSTRUCTIVE PULMONARY DISEASE, UNSPECIFIED (6) Diabetes Code(s): E11.9 - TYPE 2 DIABETES MELLITUS WITHOUT COMPLICATIONS (7) HLD (hyperlipidemia) Code(s): E78.5 - HYPERLIPIDEMIA, UNSPECIFIED (8) HTN (hypertension) Code(s): I10 - ESSENTIAL (PRIMARY) HYPERTENSION Assessment/Plan 79M with PMhx COPD,HTN, HLD, Dm, prior [place], s/p CABG, CAD with multiple cardiac stenting in past, patient with recent admission 02/2019 for CHF exacerbation presenting today with L shoulder pain radiating down to chest, SOB and swelling B/L LE. Patient reports shoulder pain is constant, aching and started suddenly tonight. Patient placed on tele obs due to Left shoulder pain, radiating to chest with sob r/o ACS, due to extensive cardiac history (prior [place], s/p CABG, CAD with multiple cardiac stents) # R/o ACS tele obs, continuos cardiac monitoring - EKG: sinus rhythm, no s/t changes - trop: negative - follow up cardiology in AM # CHF - BNP: 3791.6 improved from last admission 02/2019 - Continue with Furosemide 40 mg PO DAILY - Elevate Extremity - Monitor I & O - Daily weight - fluid restriction # HTN/HLD -ASA 81 mg daily -Carvedilol 25 mg PO BID -Lisinopril 40 mg PO DAILY -Atorvastatin Ca 20 mg PO HS -Monitor BP # COPD -Tiotropium [place] 18 mcg IH BID -Albuterol 0.083% Nebulizer Yari 1 amp NEB Q6H PRN -O2 NC PRN # DM -monitor FSBS TID AC -coverage with sliding scale # BPH - Tamsulosin HCl 0.4 mg PO BID Diet: REBECA/NCS VTE: early ambulation, TEDs Visit type - Emergency Visit Emergency Visit: Yes ED Registration Date: 04/09/19 Care time: The patient presented to the Emergency Department on the above date and was hospitalized for further evaluation of their emergent condition. - New Patient This patient is new to me today: Yes Date on this admission: 04/10/19 - Critical Care Critical Care patient: No
[2019-04-10] MEDS ORDERED: ACETAMINOPHEN 325 MG TABLET (FP) PO PRN (01:27)
[2019-04-10] MEDS ORDERED: ALBUTEROL SO4 0.083% IH SOL 2.5 MG/3 ML VIAL.NEB. NEB PRN (01:27)
--- NOTE | 2019-04-10 01:39 | PDOC ---
Documentation entered by Fei Kellogg SCRIBE, acting as scribe for Corbin Kim MD. Corbin Kim MD: This documentation has been prepared by the Valdez watts Daniel, SCRIBE, under my direction and personally reviewed by me in its entirety. I confirm that the documentation accurately reflects all work, treatment, procedures, and medical decision making performed by me. Attending Attestation - Resident Resident Name: AugusitnNorman - ED Attending Attestation I have performed the following: I have examined & evaluated the patient, The case was reviewed & discussed with the resident, I agree w/resident's findings & plan, Exceptions are as noted - HPI HPI: 04/09/19 23:34 The patient is an 79 year old male with a past medical history of CAD, HTN, HLD , [place], s/p CABG, COPD, and multiple stents here today for evaluation of left shoulder pain. The patient reports that his left shoulder pain started suddenly tonight while sitting down and describes it as 1/10 in severity, constant, lasting for 1 minute and aching. He also notes shortness of breath, lower extremity swelling, right inner mouth swelling, and generally not feeling well. Patient denies headache, lightheadedness. Denies fever, chills. Denies chest pain. Denies nausea, vomiting, diarrhea, abdominal pain. Allergies: NKA PCP: Howard Nguyen [employer]: Corbin Herrera - Physicial Exam PE: 04/09/19 23:55 Vitals: Triage vital signs reviewed General Appearance: No acute distress, well nourished, well developed Head: Atraumatic Eyes: Pupils equal reactive round, extraocular movement intact Ears: TM's normal bilaterally Nose: Nares patent bilaterally; no nasal congestion Throat: mucous membranes moist Neck: Supple; No nuchal rigidity Chest Wall: Nontender Cardiac: +slightly irregular. Regular rate, no murmurs, no rubs, no gallops Lungs: Clear to auscultation bilateral, good air movement bilaterally Abdomen: +umbilical hernia. Soft, nondistended, nontender to palpation Extremities: Full range of motion to all extremities, no cyanosis, clubbing, or edema Skin: Warm and dry, no rashes or lesions, no rash, no petechiae Neuro: AOX3; Cranial Nerves 2-12 grossly intact, Strength intact to all extremities, Sensation intact to all extremities Psych: Normal mood, normal affect - Medical Decision Making 04/09/19 23:55 The patient is an 79 year old male with a past medical history of CAD, HTN, HLD , [place], s/p CABG, COPD, and multiple stents here today for evaluation of left shoulder pain. 04/10/19 01:38 Heart score 5, history and examination consistent with CHF exacerbation We will observe overnight to rule out ACS and for further management. Heart Score/ECG Review - History History: Slightly suspicious - Electrocardiogram EKG: Non specific repolarization disturbance - Age Age: >/= 65 - Risk Factors Risk Factors Heart Score: Yes Hx Hypercholesterolemia, Yes Hx Hypertension Based on the list above the patient has:: >/=3 risk factors or Hx atherosclerotic disease - Troponin Troponin: </= normal limit - Score Heart Score - Total: 5 - ECG Impressions Comment:: 04/10/19 01:38\ EKG performed at 2234 demonstrates sinus rhythm with frequent PVCs with bigeminy
[2019-04-10] MEDS ORDERED: CYCLOBENZAPRINE HCL 10 MG TABLET (FP) PO SCH (06:00)
[2019-04-10 06:12] LABS: BASO % 0.5 % (0-2.0); EOS % 0.3 % (0-4.5); HEMATOCRIT 38.5 % (35.4-49); LYMPH % 26.6 % (8-40); MCH 30.7 pg (25.7-33.7); MCHC 33.8 g/dl (32.0-35.9); MEAN PLT VOLUME 10.4 fl (7.5-11.1); MONO % 5.9 % (3.8-10.2); NEUT % 66.7 % (42.8-82.8); PLATELET COUNT 262 K/MM3 (134-434); RBC 4.24 M/mm3 (4.00-5.60); RDW 14.3 % (11.9-15.9)
[2019-04-10] MEDS: INSULIN SLIDING SCALE (NOVOLOG) 1 VIAL SQ SCH ×3 (06:41→17:01)
[2019-04-10 07:24] LABS: BLOOD UREA NITROGEN 24.4 mg/dL (7-18); CALCIUM 8.7 mg/dL (8.5-10.1); POTASSIUM 4.2 mmol/L (3.5-5.1)
[2019-04-10] MEDS: TAMSULOSIN HCL 0.4 MG CAP PO SCH ×2 (09:10→21:58)
--- NOTE | 2019-04-10 09:23 | CONSULT ---
Consult Consult Specialty:: Cardiology Referred by:: Medicine Reason for Consultation:: CHF/Left shoulder pain - History of Present Illness Chief Complaint: Edema, left shoulder pain History of Present Illness: 79 yo male Known h/o HTN, COPD CAD with prior CABG and subsequent PCIs Followed by Dr. Herrera and supposed to be seen in office in 1.5 weeks Now admitted with 1 week of worsening dyspnea on exertion and LE edema Also endorsed left shoulder pain that radiated to his left clavicle. Shoulder pain occurred once while at rest and was transient, no further episodes Functional capacity very limited to <1 block Feels dyspnea just bending over to tie his shoes States compliance with meds Was recently admitted for CHF in 02/2019 and d/c with weight 207# on lasix 40mg PO daily - History Source History Provided By: Patient Limitations to Obtaining History: No Limitations - Past Medical History Cardio/Vascular: Yes: CAD (s/p triple bypass,), CHF, HTN, Hyperlipdemia, Other ( cardiac arrhythmia) Pulmonary: Yes: COPD Renal/: Yes: BPH Endocrine: Yes: Diabetes Mellitus - Past Surgical History Past Surgical History: Yes: Bypass (TRIPLE BYPASS SURGERY 2005) - Alcohol/Substance Use Hx Alcohol Use: No History of Substance Use: reports: None - Smoking History Smoking history: Former smoker Have you smoked in the past 12 months: No If you are a former smoker, when did you quit?: 50 yrs ago - Social History ADL: Independent History of Recent Travel: No Home Medications - Allergies Allergies/Adverse Reactions: Allergies Allergy/AdvReac Type Severity Reaction Status Date / Time No Known Allergies Allergy Unverified 04/09/19 22:43 - Home Medications Home Medications: Ambulatory Orders Aspirin 81 mg PO DAILY 01/09/14 Carvedilol 25 mg PO BID tablet 01/09/14 Insulin Glargine,Hum.rec.anlog [Lantus] 60 unit SQ DAILY vial 01/09/14 Tamsulosin HCl [Flomax] 0.4 mg PO BID 01/09/14 Atorvastatin Ca [Lipitor] 20 mg PO HS 07/09/16 Cyclobenzaprine HCl [Flexeril -] 10 mg PO TID 07/09/16 Hydrocodone/Acetaminophen [Vicodin Es 7.5-300 mg Tablet] 1 each PO Q6H PRN 07/09 Insulin Lispro [Humalog] 50 unit SQ DAILY 07/09/16 Lisinopril [Prinivil -] 40 mg PO DAILY 07/09/16 Tiotropium [place] [Spiriva] 18 mcg IH BID 02/28/19 Acetaminophen [Tylenol .Regular Strength -] 650 mg PO Q4H PRN tablet 03/07/19 Albuterol 0.083% Nebulizer [place]ari [Ventolin 0.083% Nebulizer Soln -] 1 amp NEB Q6H PRN #60 amp 03/07/19 Carvedilol [Coreg -] 12.5 mg PO BID 30 Days #60 tablet 03/07/19 Furosemide [Lasix -] 40 mg PO DAILY tablet 03/07/19 Insulin (Levemir) [Levemir Vial] 30 units SQ HS units 03/07/19 Levofloxacin [Levaquin] 500 mg PO DAILY #5 tablet 03/07/19 Nebulizer and Compressor [[place] Choice Nebulizer] 1 each MC PRN PRN #1 each Review of Systems - Review of Systems Constitutional: reports: Lethargy, Loss of Appetite Cardiovascular: reports: Chest Pain, Edema, Shortness of Breath Physical Exam Vital Signs: Vital Signs Temperature 97.2 F L 04/10/19 06:00 Pulse Rate 92 H 04/10/19 06:00 Respiratory Rate 20 04/10/19 06:00 Blood Pressure 135/75 04/10/19 06:00 O2 Sat by Pulse Oximetry (%) 95 04/10/19 04:34 Constitutional: Yes: No Distress Cardiovascular: Yes: Regular Rate and Rhythm, JVD Respiratory: Yes: Rales (Right>left rales) Extremities: Yes: WNL Edema: LLE: 1+, RLE: 1+ Labs: CBC, BMP 04/10/19 05:36 04/10/19 05:36 Imaging - Results EKG: Image Reviewed (ECG done 04/09/2019 SR with PVCS and intermittent bigeminy) Other: Report Reviewed (Echo 02/2018 with moderate LV dysfunction) Assessment/Plan acute systolic HF exacerbation - appears volume overloaded today with interval increase in weight (207 to 214# ) with BNP 3K, trop neg - echo here in Feb 2019 shows lvef lower than prior, possibly due to acute chf at the time - cont bb, norbert -Will start Lasix 40mg IV BID -Follow I/O K and Mag Left shoulder pain -Does not seem cardiac in etiology, rather more MSK, however, given his recurrent CHF admissions and question of progressive decline in EF with known CAD and CAB/PCI, not unreasonable to consider further ischemic workup if not recently performed. Will defer to Dr. Herrera on this. CAD - cont statin, bb, ACEI, aspirin DM - manage per primary COPD - manage per primary pvcs: -asymptomatic. cont bb.
[2019-04-10] MEDS: ASPIRIN 81 MG CHEWABLE TABLETS PO SCH (09:41)
[2019-04-10] MEDS: LISINOPRIL 20 MG TABLET (FP) PO SCH (09:41)
[2019-04-10] MEDS: TIOTROPIUM BROMIDE 2.5 MCG (SPIRIVA) RESPIMAT INHALER IH SCH (09:41)
[2019-04-10] MEDS: CARVEDILOL 25 MG TABLET (FP) PO SCH ×2 (09:41→21:58)
[2019-04-10] MEDS ORDERED: FUROSEMIDE 40 MG TABLET (FP) PO SCH (10:00)
--- NOTE | 2019-04-10 13:34 | PN ---
Progress Note, Physician History of Present Illness: pt seen/ examined chart is reviewed awake comfortable + sob denies cp - Current Medication List Current Medications: Active Medications Acetaminophen (Tylenol -) 650 mg PO Q6H PRN PRN Reason: PAIN OR FEVER Albuterol Sulfate (Ventolin 0.083% Nebulizer Soln -) 1 amp NEB Q6H PRN PRN Reason: SHORT OF BREATH/WHEEZING Aspirin (Asa -) 81 mg PO DAILY [facility] Last Admin: 04/10/19 09:41 Dose: 81 mg Atorvastatin Calcium (Lipitor -) 20 mg PO HS [facility] Carvedilol (Coreg -) 25 mg PO BID [facility] Last Admin: 04/10/19 09:41 Dose: 25 mg Furosemide (Lasix Injection -) 40 mg IVPUSH BID@0600,1400 [facility] Heparin Sodium (Porcine) (Heparin -) 5,000 unit SQ BID [facility] Insulin Aspart (Novolog Vial Sliding Scale -) 1 vial SQ TIDAC [facility]; Protocol Last Admin: 04/10/19 11:49 Dose: Not Given Lisinopril (Prinivil) 40 mg PO DAILY [facility] Last Admin: 04/10/19 09:41 Dose: 40 mg Tamsulosin HCl (Flomax -) 0.4 mg PO BID@0830,2200 [facility] Last Admin: 04/10/19 09:10 Dose: 0.4 mg Tiotropium [place] (Spiriva Respimat) 2 puff IH DAILY [facility] Last Admin: 04/10/19 09:41 Dose: 2 puff - Objective Vital Signs: Vital Signs Temperature 97.2 F L 04/10/19 06:00 Pulse Rate 92 H 04/10/19 06:00 Respiratory Rate 20 04/10/19 06:00 Blood Pressure 135/75 04/10/19 06:00 O2 Sat by Pulse Oximetry (%) 95 04/10/19 04:34 Constitutional: Yes: No Distress, Calm Eyes: Yes: Conjunctiva Clear Neck: Yes: Supple Cardiovascular: Yes: Regular Rate and Rhythm Respiratory: Yes: Diminished Gastrointestinal: Yes: Soft, Abdomen, Obese Edema: RUE: 2+, LLE: 2+ Neurological: Yes: Alert Labs: CBC, BMP 04/10/19 05:36 04/10/19 05:36 Problem List - Problems (1) CHF exacerbation Code(s): I50.9 - HEART FAILURE, UNSPECIFIED Qualifiers: Heart failure type: unspecified Qualified Code(s): I50.9 - Heart failure, unspecified (2) Chest pain, rule out acute myocardial infarction Code(s): R07.9 - CHEST PAIN, UNSPECIFIED (3) Left shoulder pain Code(s): M25.512 - PAIN IN LEFT SHOULDER (4) CAD (coronary artery disease) Code(s): I25.10 - ATHSCL HEART DISEASE OF [place] CORONARY ARTERY W/O ANG PCTRS (5) Diabetes Code(s): E11.9 - TYPE 2 DIABETES MELLITUS WITHOUT COMPLICATIONS (6) HTN (hypertension) Code(s): I10 - ESSENTIAL (PRIMARY) HYPERTENSION Assessment/Plan Change to i/v lasix monitor lytes d/c flexiril cardiology consult noted/ appreciated. dvt prophylaxis add troponin to todays labs will follow
[2019-04-10] MEDS: FUROSEMIDE 40 MG/4 ML INJECTABLE VIAL IVPUSH SCH (13:48)
--- NOTE | 2019-04-10 16:59 | EKG ---
Test Reason : Blood Pressure : / mmHG Vent. Rate : 093 BPM Atrial Rate : 093 BPM P-R Int : 140 ms QRS Dur : 106 ms QT Int : 374 ms P-R-T Axes : 010 056 -34 degrees QTc Int : 465 ms SINUS RHYTHM WITH FREQUENT PREMATURE VENTRICULAR COMPLEXES ABNORMAL ECG WHEN COMPARED WITH ECG OF 04-MAR-2019 12:44, CRITERIA FOR INFERIOR INFARCT ARE NO LONGER PRESENT Confirmed by KIRK PAGE MD ([id number]) on 04/10/2019 4:58:42 PM Referred By: Confirmed By:KIRK PAGE MD
[2019-04-10] MEDS: FLUTICASONE PROP 0.05% 16 GM NASAL SPRAY NS SCH (17:18)
[2019-04-10] MEDS: HEPARIN NA (PORCINE) 5,000 UNITS/ML 1ML VIAL SQ SCH (21:57)
[2019-04-10] MEDS: ATORVASTATIN CA 20 MG TABLET (FP) PO SCH (21:58)
[2019-04-11] MEDS: INSULIN SLIDING SCALE (NOVOLOG) 1 VIAL SQ SCH ×3 (06:10→17:02)
[2019-04-11] MEDS: FUROSEMIDE 40 MG/4 ML INJECTABLE VIAL IVPUSH SCH ×2 (06:26→16:00)
[2019-04-11 07:43] LABS: BASO % 0.5 % (0-2.0); BILIRUBIN,TOTAL 0.8 mg/dL (0.2-1); BLOOD UREA NITROGEN 23.7 mg/dL (7-18); CALCIUM 8.6 mg/dL (8.5-10.1); CREATININE 1.1 mg/dL (0.55-1.3); EOS % 0.4 % (0-4.5); HEMATOCRIT 37.6 % (35.4-49); HEMOGLOBIN 12.6 GM/dL (11.7-16.9); LYMPH % 25.9 % (8-40); MCH 30.4 pg (25.7-33.7); MCHC 33.6 g/dl (32.0-35.9); MEAN CELL VOLUME 90.7 fl (80-96); MEAN PLT VOLUME 10.8 fl (7.5-11.1); MONO % 6.4 % (3.8-10.2); NEUT % 66.8 % (42.8-82.8); PLATELET COUNT 259 K/MM3 (134-434); POTASSIUM 4.1 mmol/L (3.5-5.1); RBC 4.14 M/mm3 (4.00-5.60); RDW 14.1 % (11.9-15.9); TOT PROT 5.4 g/dl (6.4-8.2); WHITE BLOOD COUNT 9.2 K/mm3 (4.0-10.0)
[2019-04-11] MEDS: HEPARIN NA (PORCINE) 5,000 UNITS/ML 1ML VIAL SQ SCH ×2 (09:03→21:27)
[2019-04-11] MEDS: TAMSULOSIN HCL 0.4 MG CAP PO SCH ×2 (09:03→21:27)
[2019-04-11] MEDS: ASPIRIN 81 MG CHEWABLE TABLETS PO SCH (09:03)
[2019-04-11] MEDS: FLUTICASONE PROP 0.05% 16 GM NASAL SPRAY NS SCH (09:05)
[2019-04-11] MEDS: TIOTROPIUM BROMIDE 2.5 MCG (SPIRIVA) RESPIMAT INHALER IH SCH (09:05)
--- NOTE | 2019-04-11 09:48 | PN ---
Progress Note, Physician Chief Complaint: sob History of Present Illness: no sob. bothered by ongoing, frequent but intermittent pain L pectoral. radiates to L sternal region. sporadic at rest. ? similar to prior (also non-exertional) angina prior to his bypass--poor historian in this regard. not clearly positional. mildly accentuated by deep breathing. no palp, syncope - Current Medication List Current Medications: Active Medications Acetaminophen (Tylenol -) 650 mg PO Q6H PRN PRN Reason: PAIN OR FEVER Albuterol Sulfate (Ventolin 0.083% Nebulizer Soln -) 1 amp NEB Q6H PRN PRN Reason: SHORT OF BREATH/WHEEZING Aspirin (Asa -) 81 mg PO DAILY [facility] Last Admin: 04/11/19 09:03 Dose: 81 mg Atorvastatin Calcium (Lipitor -) 20 mg PO HS [facility] Last Admin: 04/10/19 21:58 Dose: 20 mg Carvedilol (Coreg -) 25 mg PO BID [facility] Last Admin: 04/10/19 21:58 Dose: 25 mg Fluticasone Propionate (Flonase -) 1 spray NS DAILY [facility] Last Admin: 04/11/19 09:05 Dose: 1 spray Furosemide (Lasix Injection -) 40 mg IVPUSH BID@0600,1400 [facility] Last Admin: 04/11/19 06:26 Dose: 40 mg Heparin Sodium (Porcine) (Heparin -) 5,000 unit SQ BID [facility] Last Admin: 04/11/19 09:03 Dose: 5,000 unit Insulin Aspart (Novolog Vial Sliding Scale -) 1 vial SQ TIDAC [facility]; Protocol Last Admin: 04/11/19 06:10 Dose: Not Given Lisinopril (Prinivil) 40 mg PO DAILY [facility] Last Admin: 04/10/19 09:41 Dose: 40 mg Tamsulosin HCl (Flomax -) 0.4 mg PO BID@0830,2200 [facility] Last Admin: 04/11/19 09:03 Dose: 0.4 mg Tiotropium [place] (Spiriva Respimat) 2 puff IH DAILY [facility] Last Admin: 04/11/19 09:05 Dose: 2 puff - Objective Vital Signs: Vital Signs Temperature 97.3 F L 04/11/19 05:47 Pulse Rate 40 L 04/11/19 05:47 Respiratory Rate 18 04/11/19 05:47 Blood Pressure 103/54 L 04/11/19 05:47 O2 Sat by Pulse Oximetry (%) 95 04/10/19 21:00 Constitutional: Yes: No Distress, Calm Eyes: No: Sclera Icterus HENT: No: Nasal Congestion Cardiovascular: Yes: Regular Rate and Rhythm, S1, S2, Other (PMI non diplaced). No: Gallop, Murmur, Rub Respiratory: Yes: CTA Bilaterally. No: Accessory Muscle Use, Rales, Wheezes Gastrointestinal: Yes: Normal Bowel Sounds, Soft. No: Tenderness Musculoskeletal: Yes: Other (No kyphosis) Extremities: No: Cold, Cyanosis Edema: Yes (1+ ankles) Integumentary: No: Jaundice Neurological: Yes: Alert, Oriented (x3) Psychiatric: No: Agitated Labs: CBC, BMP 04/11/19 06:10 04/11/19 06:10 Assessment/Plan Echo 03/12: mod decr LVSF (35-39%). nl RV. L/KANDACE. mild AI. acute systolic HF exacerbation: - appeared volume overloaded on admit, with interval increase in weight (207 () to 214#) - BNP 3K, from 6K in 03/12. trop neg - cont home bb, walter - issues with non-adherence to lasix previously per dr le notes - started Lasix 40mg IV BID--weights to start. continue same for now - start spironolactone 12.5 qd tomorrow - consider change WALTER to Entresto once more euvolemic - recent echo with interval decline in EF vs prior (04/11 = low-nl)--saw rey 03/21, plan to repeat echo once better diuresed, ischemia eval deferred at that time (last stress test 2007 with inferior scar/no ischemia) - will rpt pharm MPI here given recurrent HF admits atypical CP: -sx's frequent, sporadic at rest. ? similar to prior remote angina (equivocal historian) -ecg non-ischemic, trop neg x 2 -no obvious mskel features though he has known chronic MSK pain syndrome -no pain at present--trial of prn SL nitro when recurs -rpt ecg -for pharm MPI -no friction rub, no ecg findings of pericarditis--check ESR, CRP given some pleuritic features CAD (s/p VT, CABG 2004 (BECKHAM to LAD, SVG to LCX, SVG to PDA) - cont statin, bb, ACEI, aspirin DM - manage per primary COPD - manage per primary pvcs: -asymptomatic. cont bb.
[2019-04-11] MEDS: LISINOPRIL 20 MG TABLET (FP) PO SCH (10:19)
[2019-04-11] MEDS: CARVEDILOL 25 MG TABLET (FP) PO SCH ×2 (10:20→21:27)
[2019-04-11] MEDS ORDERED: NITROGLYCERIN SUBLINGUAL 1/150 0.4 MG TAB SL PRN (11:55)
--- NOTE | 2019-04-11 14:32 | PN ---
Progress Note, Physician History of Present Illness: pt seen/ examined chart is reviewed awake comfortable + sob-- better denies cp now - had earlier today- Relieved with NTG. - Current Medication List Current Medications: Active Medications Acetaminophen (Tylenol -) 650 mg PO Q6H PRN PRN Reason: PAIN OR FEVER Last Admin: 04/11/19 13:04 Dose: 650 mg Albuterol Sulfate (Ventolin 0.083% Nebulizer Soln -) 1 amp NEB Q6H PRN PRN Reason: SHORT OF BREATH/WHEEZING Aspirin (Asa -) 81 mg PO DAILY [facility] Last Admin: 04/11/19 09:03 Dose: 81 mg Atorvastatin Calcium (Lipitor -) 20 mg PO HS [facility] Last Admin: 04/10/19 21:58 Dose: 20 mg Carvedilol (Coreg -) 25 mg PO BID [facility] Last Admin: 04/11/19 10:20 Dose: 25 mg Fluticasone Propionate (Flonase -) 1 spray NS DAILY [facility] Last Admin: 04/11/19 09:05 Dose: 1 spray Furosemide (Lasix Injection -) 40 mg IVPUSH BID@0600,1400 [facility] Last Admin: 04/11/19 06:26 Dose: 40 mg Heparin Sodium (Porcine) (Heparin -) 5,000 unit SQ BID [facility] Last Admin: 04/11/19 09:03 Dose: 5,000 unit Insulin Aspart (Novolog Vial Sliding Scale -) 1 vial SQ TIDAC [facility]; Protocol Last Admin: 04/11/19 11:31 Dose: 4 units Lisinopril (Prinivil) 40 mg PO DAILY [facility] Last Admin: 04/11/19 10:19 Dose: 40 mg Nitroglycerin (Nitrostat -) 0.4 mg SL Q5M PRN PRN Reason: FOR CHEST PAIN Last Admin: 04/11/19 12:07 Dose: 0.4 mg Spironolactone (Aldactone -) 12.5 mg PO DAILY [facility] Tamsulosin HCl (Flomax -) 0.4 mg PO BID@0830,2200 [facility] Last Admin: 04/11/19 09:03 Dose: 0.4 mg Tiotropium [place] (Spiriva Respimat) 2 puff IH DAILY [facility] Last Admin: 04/11/19 09:05 Dose: 2 puff - Objective Vital Signs: Vital Signs Temperature 97.9 F 04/11/19 10:00 Pulse Rate 82 04/11/19 10:00 Respiratory Rate 18 04/11/19 10:00 Blood Pressure 121/50 L 04/11/19 10:00 O2 Sat by Pulse Oximetry (%) 94 L 04/11/19 10:00 Constitutional: Yes: No Distress, Calm Eyes: Yes: Conjunctiva Clear HENT: Yes: Atraumatic Neck: Yes: Supple Cardiovascular: Yes: Regular Rate and Rhythm Respiratory: Yes: Diminished Gastrointestinal: Yes: Soft Edema: LLE: 1+, RLE: 1+ (improved ) Neurological: Yes: Alert Psychiatric: Yes: Alert Labs: CBC, BMP 04/11/19 06:10 04/11/19 06:10 Problem List - Problems (1) CHF exacerbation Code(s): I50.9 - HEART FAILURE, UNSPECIFIED Qualifiers: Heart failure type: unspecified Qualified Code(s): I50.9 - Heart failure, unspecified (2) Chest pain, rule out acute myocardial infarction Code(s): R07.9 - CHEST PAIN, UNSPECIFIED (3) Left shoulder pain Code(s): M25.512 - PAIN IN LEFT SHOULDER (4) CAD (coronary artery disease) Code(s): I25.10 - ATHSCL HEART DISEASE OF [place] CORONARY ARTERY W/O ANG PCTRS (5) Diabetes Code(s): E11.9 - TYPE 2 DIABETES MELLITUS WITHOUT COMPLICATIONS (6) HTN (hypertension) Code(s): I10 - ESSENTIAL (PRIMARY) HYPERTENSION Assessment/Plan Better but having cp i/v lasix monitor lytes troponin level ordered for today will follow
[2019-04-11] MEDS: ATORVASTATIN CA 20 MG TABLET (FP) PO SCH (21:27)
[2019-04-12] MEDS ORDERED: diphenhydrAMINE HCL 25 MG CAPSULE (FP) PO ONE (02:13)
[2019-04-12] MEDS: INSULIN SLIDING SCALE (NOVOLOG) 1 VIAL SQ SCH ×3 (06:01→16:32)
[2019-04-12] MEDS: FUROSEMIDE 40 MG/4 ML INJECTABLE VIAL IVPUSH SCH ×2 (06:01→13:22)
[2019-04-12] MEDS: LISINOPRIL 20 MG TABLET (FP) PO SCH (09:13)
[2019-04-12] MEDS: TAMSULOSIN HCL 0.4 MG CAP PO SCH ×2 (09:14→21:11)
[2019-04-12] MEDS: SPIRONOLACTONE 25 MG TABLET (FP) PO SCH (09:14)
[2019-04-12] MEDS: CARVEDILOL 25 MG TABLET (FP) PO SCH ×2 (09:14→21:12)
[2019-04-12] MEDS: ASPIRIN 81 MG CHEWABLE TABLETS PO SCH (09:14)
[2019-04-12] MEDS: HEPARIN NA (PORCINE) 5,000 UNITS/ML 1ML VIAL SQ SCH ×2 (09:14→21:12)
[2019-04-12] MEDS: TIOTROPIUM BROMIDE 2.5 MCG (SPIRIVA) RESPIMAT INHALER IH SCH (09:16)
[2019-04-12] MEDS: FLUTICASONE PROP 0.05% 16 GM NASAL SPRAY NS SCH (09:16)
--- NOTE | 2019-04-12 10:41 | EKG ---
Test Reason : Blood Pressure : / mmHG Vent. Rate : 085 BPM Atrial Rate : 085 BPM P-R Int : 148 ms QRS Dur : 116 ms QT Int : 400 ms P-R-T Axes : -06 018 -41 degrees QTc Int : 476 ms SINUS RHYTHM WITH FREQUENT and consecutive PREMATURE VENTRICULAR COMPLEXES IN A PATTERN OF BIGEMINY POSSIBLE INFERIOR INFARCT , AGE UNDETERMINED ABNORMAL ECG Confirmed by MD SYLVIE, DONALD ([id number]) on 04/12/2019 10:41:37 AM Referred By: DELIA JUNIOR Confirmed By:DONALD MERCER MD
[2019-04-12] MEDS ORDERED: INSULIN SLIDING SCALE (NOVOLOG) 1 VIAL SQ ONE (11:24)
--- NOTE | 2019-04-12 11:27 | PN ---
Progress Note (short form) - Note Progress Note: s: no chest pain, palps, dizziness, dyspnea. refused stress test this AM, has questions about the test Current Medications Acetaminophen (Tylenol -) 650 mg PO Q6H PRN PRN Reason: PAIN OR FEVER Last Admin: 04/11/19 13:04 Dose: 650 mg Albuterol Sulfate (Ventolin 0.083% Nebulizer Soln -) 1 amp NEB Q6H PRN PRN Reason: SHORT OF BREATH/WHEEZING Aspirin (Asa -) 81 mg PO DAILY [facility] Last Admin: 04/12/19 09:14 Dose: 81 mg Atorvastatin Calcium (Lipitor -) 20 mg PO HS [facility] Last Admin: 04/11/19 21:27 Dose: 20 mg Carvedilol (Coreg -) 25 mg PO BID [facility] Last Admin: 04/12/19 09:14 Dose: 25 mg Fluticasone Propionate (Flonase -) 1 spray NS DAILY [facility] Last Admin: 04/12/19 09:16 Dose: 1 spray Furosemide (Lasix Injection -) 40 mg IVPUSH BID@0600,1400 [facility] Last Admin: 04/12/19 06:01 Dose: 40 mg Heparin Sodium (Porcine) (Heparin -) 5,000 unit SQ BID [facility] Last Admin: 04/12/19 09:14 Dose: 5,000 unit Insulin Aspart (Novolog Vial Sliding Scale -) 1 vial SQ TIDAC [facility]; Protocol Last Admin: 04/12/19 06:01 Dose: Not Given Lisinopril (Prinivil) 40 mg PO DAILY [facility] Last Admin: 04/12/19 09:13 Dose: 40 mg Nitroglycerin (Nitrostat -) 0.4 mg SL Q5M PRN PRN Reason: FOR CHEST PAIN Last Admin: 04/11/19 12:07 Dose: 0.4 mg Spironolactone (Aldactone -) 12.5 mg PO DAILY [facility] Last Admin: 04/12/19 09:14 Dose: 12.5 mg Tamsulosin HCl (Flomax -) 0.4 mg PO BID@0830,2200 [facility] Last Admin: 04/12/19 09:14 Dose: 0.4 mg Tiotropium [place] (Spiriva Respimat) 2 puff IH DAILY [facility] Last Admin: 04/12/19 09:16 Dose: 2 puff Vital Signs Period Temp Pulse Resp BP Sys/Souza Pulse Ox Last 24 Hr 97.8 F-98.2 F 55-98 18-18 100-137/48-87 94-95 Constitutional: Yes: No Distress, Calm Eyes: No: Sclera Icterus HENT: No: Nasal Congestion Cardiovascular: Yes: Regular Rate and Rhythm, S1, S2, Other (PMI non diplaced). No: Gallop, Murmur, Rub Respiratory: Yes: CTA Bilaterally. No: Accessory Muscle Use, Rales, Wheezes Gastrointestinal: Yes: Normal Bowel Sounds, Soft. No: Tenderness Musculoskeletal: Yes: Other (No kyphosis) Extremities: No: Cold, Cyanosis Edema: Yes (1+ ankles) Integumentary: No: Jaundice Neurological: Yes: Alert, Oriented (x3) Psychiatric: No: Agitated Assessment/Plan Echo 03/12: mod decr LVSF (35-39%). nl RV. L/KANDACE. mild AI. tele: sinus, PACs, PVCs acute systolic HF exacerbation: - appeared volume overloaded on admit, with interval increase in weight (207 () to 214#) - BNP 3K, from 6K in 03/12. trop neg - cont home bb, walter - issues with non-adherence to lasix previously per dr le notes - cont Lasix 40mg IV BID, weight decreasing - cont spironolactone 12.5 qd - consider change WALTER to Entresto once more euvolemic - recent echo with interval decline in EF vs prior (04/11 = low-nl)--saw rey 03/21, plan to repeat echo once better diuresed, ischemia eval deferred at that time (last stress test 2007 with inferior scar/no ischemia) - will rpt pharm MPI here given recurrent HF admits, refused today - discussed with patient, he agrees to proceed with stress test tomorrow atypical CP: -sx's frequent, sporadic at rest. ? similar to prior remote angina (equivocal historian) -ecg non-ischemic, trop neg x 2 -no obvious mskel features though he has known chronic MSK pain syndrome -no pain at present--trial of prn SL nitro when recurs -rpt ecg -for pharm MPI -no friction rub, no ecg findings of pericarditis--check ESR, CRP given some pleuritic features CAD (s/p CT, CABG 2004 (BECKHAM to LAD, SVG to LCX, SVG to PDA) - cont statin, bb, ACEI, aspirin DM - manage per primary COPD - manage per primary pvcs: -asymptomatic. cont bb.
[2019-04-12] MEDS: diphenhydrAMINE HCL 25 MG CAPSULE (FP) PO PRN ×2 (13:22→21:12)
--- NOTE | 2019-04-12 15:47 | PN ---
Progress Note (short form) - Note Progress Note: HAs swelling on his lips-- ate something 3 days ago and lip swelling getting worse- has itching on the body No SOB No chest pain Vital Signs - 24 hr 04/11/19 04/11/19 04/11/19 18:00 22:00 23:43 Temperature 98.0 F 97.9 F Pulse Rate 98 H 80 Respiratory 18 18 Rate Blood Pressure 100/50 L 122/50 L O2 Sat by Pulse 94 L 95 Oximetry (%) 04/12/19 04/12/19 04/12/19 01:44 06:00 09:23 Temperature 98.2 F 97.8 F 98 F Pulse Rate 72 55 L 86 Respiratory 18 18 18 Rate Blood Pressure 110/87 122/48 L 137/58 L O2 Sat by Pulse Oximetry (%) 04/12/19 04/12/19 10:00 14:00 Temperature 97.6 F Pulse Rate 88 Respiratory 18 Rate Blood Pressure 110/42 L O2 Sat by Pulse 96 Oximetry (%) Current Medications Generic Name Dose Route Start Last Admin Trade Name Freq PRN Reason Stop Dose Admin Acetaminophen 650 mg 04/10/19 01:27 04/11/19 13:04 Tylenol - PO 650 mg Q6H PRN Administration PAIN OR FEVER Albuterol Sulfate 1 amp 04/10/19 01:27 Ventolin 0.083% Nebulizer Soln - NEB Q6H PRN SHORT OF BREATH/WHEEZING Aspirin 81 mg 04/10/19 10:00 04/12/19 09:14 Asa - PO 81 mg DAILY [facility] Administration Atorvastatin Calcium 20 mg 04/10/19 22:00 04/11/19 21:27 Lipitor - PO 20 mg HS [facility] Administration Carvedilol 25 mg 04/10/19 10:00 04/12/19 09:14 Coreg - PO 25 mg BID [facility] Administration Diphenhydramine HCl 25 mg 04/12/19 13:07 04/12/19 13:22 Benadryl - PO 25 mg Q6H PRN Administration FOR ITCHING Fluticasone Propionate 1 spray 04/10/19 14:00 04/12/19 09:16 Flonase - NS 1 spray DAILY [facility] Administration Furosemide 40 mg 04/10/19 14:00 04/12/19 13:22 Lasix Injection - IVPUSH 40 mg BID@0600,1400 [facility] Administration Heparin Sodium (Porcine) 5,000 unit 04/10/19 22:00 04/12/19 09:14 Heparin - SQ 5,000 unit BID [facility] Administration Insulin Aspart 1 vial 04/10/19 07:00 04/12/19 11:29 Novolog Vial Sliding Scale - SQ Not Given TIDAC [facility] Protocol Lisinopril 40 mg 04/10/19 10:00 04/12/19 09:13 Prinivil PO 40 mg DAILY [facility] Administration Nitroglycerin 0.4 mg 04/11/19 11:55 04/11/19 12:07 Nitrostat - SL 0.4 mg Q5M PRN Administration FOR CHEST PAIN Spironolactone 12.5 mg 04/12/19 10:00 04/12/19 09:14 Aldactone - PO 12.5 mg DAILY [facility] Administration Tamsulosin HCl 0.4 mg 04/10/19 08:30 04/12/19 09:14 Flomax - PO 0.4 mg BID@0830,2200 [facility] Administration Tiotropium [place] 2 puff 04/10/19 10:00 04/12/19 09:16 Spiriva Respimat IH 2 puff DAILY [facility] Administration Laboratory Results - last 24 hr 04/11/19 04/11/19 04/12/19 17:01 22:45 06:00 POC Glucometer 159 209 129 04/12/19 11:28 POC Glucometer 138 S1 S2 RRR Lungs decreased lips edematous+, no pharyngeal edema, no tongue swelling Abd- soft, NT trace edema PLAN On Lasix Check I and O Stress test tomorrow start Prednisone Benadryl prn Problem List - Problems (1) Allergic reaction Code(s): T78.40XA - ALLERGY, UNSPECIFIED, INITIAL ENCOUNTER (2) CHF exacerbation Code(s): I50.9 - HEART FAILURE, UNSPECIFIED Qualifiers: Heart failure type: unspecified Qualified Code(s): I50.9 - Heart failure, unspecified (3) Chest pain, rule out acute myocardial infarction Code(s): R07.9 - CHEST PAIN, UNSPECIFIED (4) COPD (chronic obstructive pulmonary disease) Code(s): J44.9 - CHRONIC OBSTRUCTIVE PULMONARY DISEASE, UNSPECIFIED (5) Diabetes Code(s): E11.9 - TYPE 2 DIABETES MELLITUS WITHOUT COMPLICATIONS
[2019-04-12] MEDS: predniSONE 20 MG TABLET (UD) PO SCH (16:29)
[2019-04-12] MEDS: ATORVASTATIN CA 20 MG TABLET (FP) PO SCH (21:12)
[2019-04-12] MEDS ORDERED: INSULIN (NOVOLOG) ASPART 100 UNITS/ML 10ML VIAL SQ ONE (21:38)
[2019-04-13] MEDS: FUROSEMIDE 40 MG/4 ML INJECTABLE VIAL IVPUSH SCH ×2 (05:54→13:52)
[2019-04-13] MEDS: INSULIN SLIDING SCALE (NOVOLOG) 1 VIAL SQ SCH ×3 (06:21→17:16)
[2019-04-13] MEDS ORDERED: REGADENOSON 0.4 MG/5 ML PRE-FILLED SYRINGE IVPUSH ONE ×2 (09:42→10:30)
[2019-04-13] MEDS: LISINOPRIL 20 MG TABLET (FP) PO SCH (12:44)
[2019-04-13] MEDS: predniSONE 20 MG TABLET (UD) PO SCH (12:45)
[2019-04-13] MEDS: SPIRONOLACTONE 25 MG TABLET (FP) PO SCH (12:46)
[2019-04-13] MEDS: ASPIRIN 81 MG CHEWABLE TABLETS PO SCH (12:46)
[2019-04-13] MEDS: CARVEDILOL 25 MG TABLET (FP) PO SCH ×2 (12:46→21:39)
[2019-04-13] MEDS: TAMSULOSIN HCL 0.4 MG CAP PO SCH ×2 (12:46→21:38)
[2019-04-13] MEDS: HEPARIN NA (PORCINE) 5,000 UNITS/ML 1ML VIAL SQ SCH ×2 (12:47→21:38)
[2019-04-13] MEDS: FLUTICASONE PROP 0.05% 16 GM NASAL SPRAY NS SCH (12:49)
[2019-04-13] MEDS: TIOTROPIUM BROMIDE 2.5 MCG (SPIRIVA) RESPIMAT INHALER IH SCH (12:50)
[2019-04-13] MEDS ORDERED: FUROSEMIDE 40 MG/4 ML INJECTABLE VIAL IVPUSH SCH (14:51)
--- NOTE | 2019-04-13 14:54 | PN ---
Progress Note (short form) - Note Progress Note: s: no cp palps dizzy; still with sob and le edema Current Medications Generic Name Dose Route Start Last Admin Trade Name Freq PRN Reason Stop Dose Admin Acetaminophen 650 mg 04/10/19 01:27 04/11/19 13:04 Tylenol - PO 650 mg Q6H PRN Administration PAIN OR FEVER Albuterol Sulfate 1 amp 04/10/19 01:27 Ventolin 0.083% Nebulizer Soln - NEB Q6H PRN SHORT OF BREATH/WHEEZING Aspirin 81 mg 04/10/19 10:00 04/13/19 12:46 Asa - PO 81 mg DAILY [facility] Administration Atorvastatin Calcium 20 mg 04/10/19 22:00 04/12/19 21:12 Lipitor - PO 20 mg HS [facility] Administration Carvedilol 25 mg 04/10/19 10:00 04/13/19 12:46 Coreg - PO 25 mg BID [facility] Administration Diphenhydramine HCl 25 mg 04/12/19 13:07 04/12/19 21:12 Benadryl - PO 25 mg Q6H PRN Administration FOR ITCHING Fluticasone Propionate 1 spray 04/10/19 14:00 04/13/19 12:49 Flonase - NS 1 spray DAILY [facility] Administration Furosemide 60 mg 04/13/19 14:51 Lasix Injection - IVPUSH BID@0600,1400 [facility] Heparin Sodium (Porcine) 5,000 unit 04/10/19 22:00 04/13/19 12:47 Heparin - SQ 5,000 unit BID [facility] Administration Insulin Aspart 1 vial 04/10/19 07:00 04/13/19 12:48 Novolog Vial Sliding Scale - SQ 6 units TIDAC [facility] Administration Protocol Lisinopril 40 mg 04/10/19 10:00 04/13/19 12:44 Prinivil PO 40 mg DAILY [facility] Administration Nitroglycerin 0.4 mg 04/11/19 11:55 04/11/19 12:07 Nitrostat - SL 0.4 mg Q5M PRN Administration FOR CHEST PAIN Prednisone 40 mg 04/12/19 16:00 04/13/19 12:45 Deltasone - PO 40 mg DAILY [facility] Administration Spironolactone 12.5 mg 04/12/19 10:00 04/13/19 12:46 Aldactone - PO 12.5 mg DAILY [facility] Administration Tamsulosin HCl 0.4 mg 04/10/19 08:30 04/13/19 12:46 Flomax - PO 0.4 mg BID@0830,2200 [facility] Administration Tiotropium [place] 2 puff 04/10/19 10:00 04/13/19 12:50 Spiriva Respimat IH 2 puff DAILY [facility] Administration Vital Signs Period Temp Pulse Resp BP Sys/Souza Pulse Ox Last 24 Hr 97.7 F-98.4 F 62-86 18-18 102-133/43-65 94-96 Constitutional: Yes: No Distress, Calm Eyes: No: Sclera Icterus HENT: No: Nasal Congestion Cardiovascular: Yes: Regular Rate and Rhythm, S1, S2, Other (PMI non diplaced). No: Gallop, Murmur, Rub Respiratory: Yes: CTA Bilaterally. No: Accessory Muscle Use, Rales, Wheezes Gastrointestinal: Yes: Normal Bowel Sounds, Soft. No: Tenderness Extremities: No: Cold, Cyanosis Edema: Yes (1+ ankles) Integumentary: No: Jaundice Neurological: Yes: Alert, Oriented (x3) Psychiatric: No: Agitated CBC, BMP 04/11/19 06:10 04/11/19 06:10 Assessment/Plan Echo 03/12: mod decr LVSF (35-39%). nl RV. L/KANDACE. mild AI. mibi 03/2019: large posterior lateral apical partially reversible defect c/w infarct with brandon-infarct ischemia tele: sinus, PACs, PVCs acute systolic HF exacerbation: - appeared volume overloaded on admit, with interval increase in weight (207 () to 214#) - BNP 3K, from 6K in 03/12. trop neg - issues with non-adherence to lasix previously per dr le notes - has been getting iv lasix 40 bid, some improvement in symptoms but still with crain and le edema. Will increase to 60 bid. Cont daily wts, chem7. - cont spironolactone 12.5 qd, bb - will dc norbert and start entresto (will start first dose on thursday) - recent echo with interval decline in EF vs prior (04/11 = low-nl). MIBI here with inf infarct and brandon-infarct ischemia, similar to 2008 (MIBI 2007 with inferior scar/no ischemia). atypical CP: -sx's frequent, sporadic at rest. ? similar to prior remote angina (equivocal historian) -ecg non-ischemic, trop neg x 2 -MIBI here with inf infarct and brandon-infarct ischemia, similar to 2008 (MIBI 2007 with inferior scar/no ischemia). CAD (s/p [place], CABG 2003 (BECKHAM to LAD, SVG to LCX, SVG to PDA) - cont statin, bb, aspirin DM - manage per primary COPD - manage per primary pvcs: -asymptomatic. cont bb.
[2019-04-13] MEDS: ATORVASTATIN CA 20 MG TABLET (FP) PO SCH (21:38)
[2019-04-13] MEDS: diphenhydrAMINE HCL 25 MG CAPSULE (FP) PO PRN (21:41)
[2019-04-14] MEDS: INSULIN SLIDING SCALE (NOVOLOG) 1 VIAL SQ SCH ×3 (06:36→16:19)
[2019-04-14 08:35] LABS: BLOOD UREA NITROGEN 41.2 mg/dL (7-18); CALCIUM 8.9 mg/dL (8.5-10.1); CREATININE 1.4 mg/dL (0.55-1.3); POTASSIUM 4.9 mmol/L (3.5-5.1)
[2019-04-14] MEDS: TAMSULOSIN HCL 0.4 MG CAP PO SCH ×2 (08:55→21:55)
[2019-04-14] MEDS: SPIRONOLACTONE 25 MG TABLET (FP) PO SCH (09:01)
[2019-04-14] MEDS: ASPIRIN 81 MG CHEWABLE TABLETS PO SCH (09:01)
[2019-04-14] MEDS: CARVEDILOL 25 MG TABLET (FP) PO SCH ×2 (09:01→21:55)
[2019-04-14] MEDS: FLUTICASONE PROP 0.05% 16 GM NASAL SPRAY NS SCH (09:01)
[2019-04-14] MEDS: predniSONE 20 MG TABLET (UD) PO SCH (09:01)
[2019-04-14] MEDS: HEPARIN NA (PORCINE) 5,000 UNITS/ML 1ML VIAL SQ SCH ×2 (09:01→21:55)
[2019-04-14] MEDS: TIOTROPIUM BROMIDE 2.5 MCG (SPIRIVA) RESPIMAT INHALER IH SCH (09:02)
--- NOTE | 2019-04-14 11:11 | PN ---
Progress Note (short form) - Note Progress Note: s: no cp palps dizzy; sob and le edema improving Current Medications Generic Name Dose Route Start Last Admin Trade Name Freq PRN Reason Stop Dose Admin Acetaminophen 650 mg 04/10/19 01:27 04/11/19 13:04 Tylenol - PO 650 mg Q6H PRN Administration PAIN OR FEVER Albuterol Sulfate 1 amp 04/10/19 01:27 Ventolin 0.083% Nebulizer Soln - NEB Q6H PRN SHORT OF BREATH/WHEEZING Aspirin 81 mg 04/10/19 10:00 04/14/19 09:01 Asa - PO 81 mg DAILY [facility] Administration Atorvastatin Calcium 20 mg 04/10/19 22:00 04/13/19 21:38 Lipitor - PO 20 mg HS [facility] Administration Carvedilol 25 mg 04/10/19 10:00 04/14/19 09:01 Coreg - PO 25 mg BID [facility] Administration Diphenhydramine HCl 25 mg 04/12/19 13:07 04/13/19 21:41 Benadryl - PO 25 mg Q6H PRN Administration FOR ITCHING Fluticasone Propionate 1 spray 04/10/19 14:00 04/14/19 09:01 Flonase - NS 1 spray DAILY [facility] Administration Heparin Sodium (Porcine) 5,000 unit 04/10/19 22:00 04/14/19 09:01 Heparin - SQ 5,000 unit BID [facility] Administration Insulin Aspart 1 vial 04/10/19 07:00 04/14/19 10:59 Novolog Vial Sliding Scale - SQ 6 units TIDAC [facility] Administration Protocol Nitroglycerin 0.4 mg 04/11/19 11:55 04/11/19 12:07 Nitrostat - SL 0.4 mg Q5M PRN Administration FOR CHEST PAIN Prednisone 40 mg 04/12/19 16:00 04/14/19 09:01 Deltasone - PO 40 mg DAILY [facility] Administration Sacubitril/Valsartan 1 tab 04/15/19 10:00 Entresto 49 Mg-51 Mg Tablet PO BID [facility] Spironolactone 12.5 mg 04/12/19 10:00 04/14/19 09:01 Aldactone - PO 12.5 mg DAILY [facility] Administration Tamsulosin HCl 0.4 mg 04/10/19 08:30 04/14/19 08:55 Flomax - PO 0.4 mg BID@0830,2200 [facility] Administration Tiotropium [place] 2 puff 04/10/19 10:00 04/14/19 09:02 Spiriva Respimat IH 2 puff DAILY [facility] Administration Vital Signs Period Temp Pulse Resp BP Sys/Souza Pulse Ox Last 24 Hr 97.4 F-98.0 F 63-97 18-18 94-121/43-64 94 Constitutional: Yes: No Distress, Calm Eyes: No: Sclera Icterus HENT: No: Nasal Congestion Cardiovascular: Yes: Regular Rate and Rhythm, S1, S2, Other (PMI non diplaced). No: Gallop, Murmur, Rub Respiratory: Yes: CTA Bilaterally. No: Accessory Muscle Use, Rales, Wheezes Gastrointestinal: Yes: Normal Bowel Sounds, Soft. No: Tenderness Extremities: No: Cold, Cyanosis Edema: Yes (1+ ankles) Integumentary: No: Jaundice Neurological: Yes: Alert, Oriented (x3) Psychiatric: No: Agitated CBC, BMP 04/11/19 06:10 04/14/19 06:40 Assessment/Plan Echo 03/12: mod decr LVSF (35-39%). nl RV. L/KANDACE. mild AI. mibi 03/2019: large posterior lateral apical partially reversible defect c/w infarct with brandon-infarct ischemia tele: sinus, PACs, PVCs acute systolic HF exacerbation: - appeared volume overloaded on admit, with interval increase in weight (207 () to 214#) - BNP 3K, from 6K in 03/12. trop neg - issues with non-adherence to lasix previously per dr le notes - has been getting iv lasix, diuresing well, today bun/cr up, will hold lasix for now and allow cr to return to baseline. - cont spironolactone 12.5 qd, bb - will dc norbert and start entresto - recent echo with interval decline in EF vs prior (04/11 = low-nl). MIBI here with inf infarct and brandon-infarct ischemia, similar to 2008 (MIBI 2007 with inferior scar/no ischemia). atypical CP: -sx's frequent, sporadic at rest. ? similar to prior remote angina (equivocal historian) -ecg non-ischemic, trop neg x 2 -MIBI here with inf infarct and brandon-infarct ischemia, similar to 2008 (MIBI 2008 with inferior scar/no ischemia). CAD (s/p [place], CABG 2003 (BECKHAM to LAD, SVG to LCX, SVG to PDA) - cont statin, bb, aspirin DM - manage per primary COPD - manage per primary pvcs: -asymptomatic. cont bb.
--- NOTE | 2019-04-14 16:08 | PN ---
Progress Note (short form) - Note Progress Note: decreased swelling on his lips No SOB No chest pain Vital Signs - 24 hr 04/13/19 04/13/19 04/13/19 18:00 21:00 22:00 Temperature 97.7 F 97.6 F 97.4 F L Pulse Rate 97 H 85 78 Respiratory 18 18 18 Rate Blood Pressure 104/58 L 107/49 L 94/52 L O2 Sat by Pulse 94 L Oximetry (%) 04/14/19 04/14/19 04/14/19 01:42 06:00 09:00 Temperature 97.7 F 97.4 F L Pulse Rate 69 69 Respiratory 18 18 Rate Blood Pressure 114/47 L 121/60 O2 Sat by Pulse 93 L Oximetry (%) 04/14/19 04/14/19 10:00 14:37 Temperature 97.5 F L 98.3 F Pulse Rate 63 71 Respiratory 18 18 Rate Blood Pressure 112/64 103/50 L O2 Sat by Pulse Oximetry (%) Current Medications Generic Name Dose Route Start Last Admin Trade Name Freq PRN Reason Stop Dose Admin Acetaminophen 650 mg 04/10/19 01:27 04/11/19 13:04 Tylenol - PO 650 mg Q6H PRN Administration PAIN OR FEVER Albuterol Sulfate 1 amp 04/10/19 01:27 Ventolin 0.083% Nebulizer Soln - NEB Q6H PRN SHORT OF BREATH/WHEEZING Aspirin 81 mg 04/10/19 10:00 04/14/19 09:01 Asa - PO 81 mg DAILY [facility] Administration Atorvastatin Calcium 20 mg 04/10/19 22:00 04/13/19 21:38 Lipitor - PO 20 mg HS [facility] Administration Carvedilol 25 mg 04/10/19 10:00 04/14/19 09:01 Coreg - PO 25 mg BID [facility] Administration Diphenhydramine HCl 25 mg 04/12/19 13:07 04/13/19 21:41 Benadryl - PO 25 mg Q6H PRN Administration FOR ITCHING Fluticasone Propionate 1 spray 04/10/19 14:00 04/14/19 09:01 Flonase - NS 1 spray DAILY [facility] Administration Heparin Sodium (Porcine) 5,000 unit 04/10/19 22:00 04/14/19 09:01 Heparin - SQ 5,000 unit BID [facility] Administration Insulin Aspart 1 vial 04/10/19 07:00 04/14/19 10:59 Novolog Vial Sliding Scale - SQ 6 units TIDAC [facility] Administration Protocol Insulin Aspart 12 units 04/14/19 16:15 Novolog Vial SQ 04/14/19 16:16 ONCE ONE Insulin Detemir 60 units 04/14/19 16:00 Levemir Vial SQ DAILY@0700 [facility] Nitroglycerin 0.4 mg 04/11/19 11:55 04/11/19 12:07 Nitrostat - SL 0.4 mg Q5M PRN Administration FOR CHEST PAIN Prednisone 30 mg 04/15/19 10:00 Deltasone - PO DAILY [facility] Sacubitril/Valsartan 1 tab 04/15/19 10:00 Entresto 49 Mg-51 Mg Tablet PO BID [facility] Spironolactone 12.5 mg 04/12/19 10:00 04/14/19 09:01 Aldactone - PO 12.5 mg DAILY [facility] Administration Tamsulosin HCl 0.4 mg 04/10/19 08:30 04/14/19 08:55 Flomax - PO 0.4 mg BID@0830,2200 [facility] Administration Tiotropium [place] 2 puff 04/10/19 10:00 04/14/19 09:02 Spiriva Respimat IH 2 puff DAILY [facility] Administration Laboratory Results - last 24 hr 04/13/19 04/13/19 04/14/19 17:11 21:55 05:45 Sodium Potassium Chloride Carbon Dioxide Anion Gap BUN Creatinine Est GFR (CKD-EPI)AfAm Est GFR (CKD-EPI)NonAf POC Glucometer 306 334 267 Random Glucose Calcium 04/14/19 04/14/19 04/14/19 06:40 10:58 15:23 Sodium 133 L Potassium 4.9 Chloride 99 Carbon Dioxide 27 Anion Gap 7 L BUN 41.2 H Creatinine 1.4 H Est GFR (CKD-EPI)AfAm 54.61 Est GFR (CKD-EPI)NonAf 47.12 POC Glucometer 290 439 Random Glucose 263 H Calcium 8.9 S1 S2 RRR Lungs decreased lips edematous+, no pharyngeal edema, no tongue swelling Abd- soft, NT trace edema PLAN dc Lasix on spironolactone Benadryl prn Stress test result same as 2007 continue with meds check labs noted creatinin elevated Problem List - Problems (1) Allergic reaction Code(s): T78.40XA - ALLERGY, UNSPECIFIED, INITIAL ENCOUNTER (2) CHF exacerbation Code(s): I50.9 - HEART FAILURE, UNSPECIFIED Qualifiers: Heart failure type: unspecified Qualified Code(s): I50.9 - Heart failure, unspecified (3) Chest pain, rule out acute myocardial infarction Code(s): R07.9 - CHEST PAIN, UNSPECIFIED (4) COPD (chronic obstructive pulmonary disease) Code(s): J44.9 - CHRONIC OBSTRUCTIVE PULMONARY DISEASE, UNSPECIFIED (5) Diabetes Code(s): E11.9 - TYPE 2 DIABETES MELLITUS WITHOUT COMPLICATIONS
[2019-04-14] MEDS ORDERED: INSULIN (NOVOLOG) ASPART 100 UNITS/ML 10ML VIAL SQ ONE (16:15)
[2019-04-14] MEDS: INSULIN (LEVEMIR) 100 UNITS/ML UNITS SQ SCH (16:20)
[2019-04-14] MEDS: ATORVASTATIN CA 20 MG TABLET (FP) PO SCH (21:55)
[2019-04-14] MEDS ORDERED: SACUBITRIL/VALSARTAN 49 MG-51 MG TABLET PO SCH (22:00)
[2019-04-15] MEDS: INSULIN SLIDING SCALE (NOVOLOG) 1 VIAL SQ SCH ×3 (06:42→16:37)
[2019-04-15] MEDS ORDERED: INSULIN SLIDING SCALE (NOVOLOG) 1 VIAL SQ ONE (06:49)
[2019-04-15 07:06] LABS: BLOOD UREA NITROGEN 35.2 mg/dL (7-18); CALCIUM 8.9 mg/dL (8.5-10.1); CREATININE 1.1 mg/dL (0.55-1.3); POTASSIUM 4.3 mmol/L (3.5-5.1)
[2019-04-15] MEDS: INSULIN (LEVEMIR) 100 UNITS/ML UNITS SQ SCH (08:59)
[2019-04-15] MEDS: TAMSULOSIN HCL 0.4 MG CAP PO SCH ×2 (08:59→21:51)
[2019-04-15] MEDS: ASPIRIN 81 MG CHEWABLE TABLETS PO SCH (09:02)
[2019-04-15] MEDS: HEPARIN NA (PORCINE) 5,000 UNITS/ML 1ML VIAL SQ SCH ×2 (09:02→21:51)
[2019-04-15] MEDS: SPIRONOLACTONE 25 MG TABLET (FP) PO SCH (09:03)
[2019-04-15] MEDS: CARVEDILOL 25 MG TABLET (FP) PO SCH ×2 (09:03→21:51)
[2019-04-15] MEDS: FLUTICASONE PROP 0.05% 16 GM NASAL SPRAY NS SCH (09:07)
[2019-04-15] MEDS: SACUBITRIL/VALSARTAN 49 MG-51 MG TABLET PO SCH ×2 (09:55→21:51)
[2019-04-15] MEDS ORDERED: PT OWN MED DRAWER 7, Y5N ONE ×2 (09:55→20:46)
[2019-04-15] MEDS ORDERED: predniSONE 10 MG TABLET (UD) PO SCH (10:00)
--- NOTE | 2019-04-15 10:14 | PN ---
Progress Note, Physician Chief Complaint: c/o light headedness when stands TELE: NSR, PVC No CP, SOB, palps - Current Medication List Current Medications: Active Medications Acetaminophen (Tylenol -) 650 mg PO Q6H PRN PRN Reason: PAIN OR FEVER Last Admin: 04/11/19 13:04 Dose: 650 mg Aspirin (Asa -) 81 mg PO DAILY [facility] Last Admin: 04/15/19 09:02 Dose: 81 mg Atorvastatin Calcium (Lipitor -) 20 mg PO HS [facility] Last Admin: 04/14/19 21:55 Dose: 20 mg Carvedilol (Coreg -) 25 mg PO BID [facility] Last Admin: 04/15/19 09:03 Dose: 25 mg Diphenhydramine HCl (Benadryl -) 25 mg PO Q6H PRN PRN Reason: FOR ITCHING Last Admin: 04/13/19 21:41 Dose: 25 mg Fluticasone Propionate (Flonase -) 1 spray NS DAILY [facility] Last Admin: 04/15/19 09:07 Dose: 1 spray Heparin Sodium (Porcine) (Heparin -) 5,000 unit SQ BID [facility] Last Admin: 04/15/19 09:02 Dose: 5,000 unit Insulin Aspart (Novolog Vial Sliding Scale -) 1 vial SQ TIDAC [facility]; Protocol Last Admin: 04/15/19 06:42 Dose: 2 units Insulin Detemir (Levemir Vial) 60 units SQ DAILY@0700 [facility] Last Admin: 04/15/19 08:59 Dose: 60 units Nitroglycerin (Nitrostat -) 0.4 mg SL Q5M PRN PRN Reason: FOR CHEST PAIN Last Admin: 04/11/19 12:07 Dose: 0.4 mg Prednisone (Deltasone -) 30 mg PO DAILY [facility] Last Admin: 04/15/19 09:02 Dose: 30 mg Sacubitril/Valsartan (Entresto 49 Mg-51 Mg Tablet) 1 tab PO BID [facility] Last Admin: 04/15/19 09:55 Dose: 1 tab Spironolactone (Aldactone -) 12.5 mg PO DAILY [facility] Last Admin: 04/15/19 09:03 Dose: 12.5 mg Tamsulosin HCl (Flomax -) 0.4 mg PO BID@0830,2200 [facility] Last Admin: 04/15/19 08:59 Dose: 0.4 mg Tiotropium [place] (Spiriva Respimat) 2 puff IH DAILY [facility] Last Admin: 04/14/19 09:02 Dose: 2 puff - Objective Vital Signs: Vital Signs Temperature 97.6 F 04/15/19 09:10 Pulse Rate 89 04/15/19 09:10 Respiratory Rate 18 04/15/19 09:10 Blood Pressure 112/50 L 04/15/19 09:10 O2 Sat by Pulse Oximetry (%) 93 L 04/14/19 20:57 Constitutional: Yes: Calm Cardiovascular: Yes: Regular Rate and Rhythm Respiratory: Yes: CTA Bilaterally Gastrointestinal: Yes: Soft Edema: Yes Edema: LLE: 1+, RLE: 1+ Neurological: Yes: Alert Labs: CBC, BMP 04/11/19 06:10 04/15/19 06:00 - ....Imaging EKG: Image Reviewed Assessment/Plan Assessment/Plan Echo 03/12: mod decr LVSF (35-39%). nl RV. L/KANDACE. mild AI. mibi 03/2019: large posterior lateral apical partially reversible defect c/w infarct with brandon-infarct ischemia tele: sinus, PACs, PVCs acute systolic HF exacerbation: - improved, lasix held for creat bump; now with orthostatic sx; hold lasix, check orthostatics. - cont spironolactone 12.5 qd, bb - started entresto - recent echo with interval decline in EF vs prior (04/11 = low-nl). MIBI here with inf infarct and brandon-infarct ischemia, similar to 2008 (MIBI 2007 with inferior scar/no ischemia). atypical CP: -sx's frequent, sporadic at rest. ? similar to prior remote angina (equivocal historian) -ecg non-ischemic, trop neg x 2 -MIBI here with inf infarct and brandon-infarct ischemia, similar to 2008 (MIBI 2007 with inferior scar/no ischemia). CAD (s/p [place], CABG 2003 (BECKHAM to LAD, SVG to LCX, SVG to PDA) - cont statin, bb, aspirin DM - manage per primary COPD - manage per primary pvcs: -asymptomatic. cont bb.
--- NOTE | 2019-04-15 11:03 | PN ---
Progress Note (short form) - Note Progress Note: pt seen/ examined somewhat frustated today with stay chart reviewed c/c- congested sinuses feels dizzy when he goes to bathroom denies cp breathing stable all f/u noted and d/w Dr. payan also Vital Signs Temp 97.6 F 04/15/19 09:10 Pulse 67 04/15/19 10:14 Resp 18 04/15/19 09:10 BP 93/48 L 04/15/19 10:14 Pulse Ox 97 04/15/19 09:00 Intake & Output 04/14/19 04/14/19 04/15/19 11:59 23:59 11:59 Intake Total 200 790 270 Output Total 1350 1950 600 Balance -1150 -1160 -330 Weight 208 lb 207 lb 6.4 oz Intake: Oral 200 790 270 Output: Urine 1350 1950 600 Void 1350 1950 600 Other: Voiding Method Urinal Urinal Urinal Bowel Movement No No # Bowel Movements 1 Weight Measurement Method Standing Scale Standing Scale Active Medications Acetaminophen (Tylenol -) 650 mg PO Q6H PRN PRN Reason: PAIN OR FEVER Last Admin: 04/11/19 13:04 Dose: 650 mg Aspirin (Asa -) 81 mg PO DAILY [facility] Last Admin: 04/15/19 09:02 Dose: 81 mg Atorvastatin Calcium (Lipitor -) 20 mg PO HS [facility] Last Admin: 04/14/19 21:55 Dose: 20 mg Carvedilol (Coreg -) 25 mg PO BID [facility] Last Admin: 04/15/19 09:03 Dose: 25 mg Diphenhydramine HCl (Benadryl -) 25 mg PO Q6H PRN PRN Reason: FOR ITCHING Last Admin: 04/13/19 21:41 Dose: 25 mg Fluticasone Propionate (Flonase -) 1 spray NS DAILY [facility] Last Admin: 04/15/19 09:07 Dose: 1 spray Heparin Sodium (Porcine) (Heparin -) 5,000 unit SQ BID [facility] Last Admin: 04/15/19 09:02 Dose: 5,000 unit Insulin Aspart (Novolog Vial Sliding Scale -) 1 vial SQ TIDAC [facility]; Protocol Last Admin: 04/15/19 06:42 Dose: 2 units Insulin Detemir (Levemir Vial) 60 units SQ DAILY@0700 [facility] Last Admin: 04/15/19 08:59 Dose: 60 units Loratadine (Claritin -) 10 mg PO DAILY [facility] Nitroglycerin (Nitrostat -) 0.4 mg SL Q5M PRN PRN Reason: FOR CHEST PAIN Last Admin: 04/11/19 12:07 Dose: 0.4 mg Prednisone (Deltasone -) 20 mg PO DAILY [facility] Sacubitril/Valsartan (Entresto 49 Mg-51 Mg Tablet) 1 tab PO BID [facility] Last Admin: 04/15/19 09:55 Dose: 1 tab Spironolactone (Aldactone -) 12.5 mg PO DAILY [facility] Last Admin: 04/15/19 09:03 Dose: 12.5 mg Tamsulosin HCl (Flomax -) 0.4 mg PO BID@0830,2200 [facility] Last Admin: 04/15/19 08:59 Dose: 0.4 mg Tiotropium [place] (Spiriva Respimat) 2 puff IH DAILY [facility] Last Admin: 04/14/19 09:02 Dose: 2 puff CBC, BMP 04/11/19 06:10 04/15/19 06:00 Physical Exam Awake Mild congestion of sinuses Lip swelling -- MIld Throat clear neck- NO jvd Lungs- Diminished cvs- s1, s2 rrr abd- soft Ext-- + edema Neuro- Non focal a/p Problems as listed echo reviewed Claritin prn decrease predisone check orthostasis monitor bgm Check HBaic f/u labs will follow Diuretics on hold per cardiology today Orthostasis check Problem List - Problems (1) CHF exacerbation Code(s): I50.9 - HEART FAILURE, UNSPECIFIED Qualifiers: Heart failure type: unspecified Qualified Code(s): I50.9 - Heart failure, unspecified (2) Chest pain, rule out acute myocardial infarction Code(s): R07.9 - CHEST PAIN, UNSPECIFIED (3) Left shoulder pain Code(s): M25.512 - PAIN IN LEFT SHOULDER (4) CAD (coronary artery disease) Code(s): I25.10 - ATHSCL HEART DISEASE OF [place] CORONARY ARTERY W/O ANG PCTRS (5) Diabetes Code(s): E11.9 - TYPE 2 DIABETES MELLITUS WITHOUT COMPLICATIONS (6) HTN (hypertension) Code(s): I10 - ESSENTIAL (PRIMARY) HYPERTENSION
[2019-04-15] MEDS: LORATADINE 10 MG TABLET PO SCH (11:34)
[2019-04-15] MEDS: TIOTROPIUM BROMIDE 2.5 MCG (SPIRIVA) RESPIMAT INHALER IH SCH (11:53)
[2019-04-15] MEDS: ATORVASTATIN CA 20 MG TABLET (FP) PO SCH (21:51)
[2019-04-16] MEDS: INSULIN (LEVEMIR) 100 UNITS/ML UNITS SQ SCH (06:33)
[2019-04-16] MEDS: INSULIN SLIDING SCALE (NOVOLOG) 1 VIAL SQ SCH ×2 (06:34→11:25)
[2019-04-16] MEDS ORDERED: predniSONE 20 MG TABLET (UD) PO SCH (07:00)
[2019-04-16 08:03] LABS: ALBUMIN 3.3 g/dl (3.4-5.0); BILIRUBIN,TOTAL 0.9 mg/dL (0.2-1); BLOOD UREA NITROGEN 35.2 mg/dL (7-18); CALCIUM 8.7 mg/dL (8.5-10.1); POTASSIUM 4.4 mmol/L (3.5-5.1); TOT PROT 5.9 g/dl (6.4-8.2)
[2019-04-16] MEDS: HEPARIN NA (PORCINE) 5,000 UNITS/ML 1ML VIAL SQ SCH (09:31)
[2019-04-16] MEDS: LORATADINE 10 MG TABLET PO SCH (09:32)
[2019-04-16] MEDS: TAMSULOSIN HCL 0.4 MG CAP PO SCH (09:32)
[2019-04-16] MEDS: SPIRONOLACTONE 25 MG TABLET (FP) PO SCH (09:33)
[2019-04-16] MEDS: ASPIRIN 81 MG CHEWABLE TABLETS PO SCH (09:33)
[2019-04-16] MEDS: SACUBITRIL/VALSARTAN 49 MG-51 MG TABLET PO SCH (09:34)
[2019-04-16] MEDS: CARVEDILOL 25 MG TABLET (FP) PO SCH (09:34)
[2019-04-16] MEDS: FLUTICASONE PROP 0.05% 16 GM NASAL SPRAY NS SCH (09:36)
[2019-04-16] MEDS: TIOTROPIUM BROMIDE 2.5 MCG (SPIRIVA) RESPIMAT INHALER IH SCH (09:36)
[2019-04-16 11:11] VITALS: BP 112/56; PULSE 68; TEMP 97.7
[2019-04-16 12:14] LABS: BASO % 1.4 % (0-2.0); HEMATOCRIT 41.7 % (35.4-49); HEMOGLOBIN 14.1 GM/dL (11.7-16.9); LYMPH % 5.4 % (8-40); MCH 30.4 pg (25.7-33.7); MCHC 33.7 g/dl (32.0-35.9); MEAN CELL VOLUME 90.1 fl (80-96); MEAN PLT VOLUME 11.1 fl (7.5-11.1); MONO % 3.9 % (3.8-10.2); NEUT % 89.3 % (42.8-82.8); PLATELET COUNT 293 K/MM3 (134-434); RBC 4.64 M/mm3 (4.00-5.60); WHITE BLOOD COUNT 11.8 K/mm3 (4.0-10.0)
--- NOTE | 2019-04-16 12:36 | PN ---
Progress Note (short form) - Note Progress Note: s: no chest pain, palps, dizziness, dyspnea. wants to go home, walking in halls without shortness of breath. - Objective Vital Signs: Vital Signs Temperature 97.6 F 04/15/19 09:10 Pulse Rate 89 04/15/19 09:10 Respiratory Rate 18 04/15/19 09:10 Blood Pressure 112/50 L 04/15/19 09:10 O2 Sat by Pulse Oximetry (%) 93 L 04/14/19 20:57 Constitutional: Yes: Calm Cardiovascular: Yes: Regular Rate and Rhythm Respiratory: Yes: CTA Bilaterally Gastrointestinal: Yes: Soft Edema: Yes Edema: LLE: 1+, RLE: 1+ Neurological: Yes: Alert Labs: CBC, BMP 04/11/19 06:10 04/15/19 06:00 - ....Imaging EKG: Image Reviewed Assessment/Plan Assessment/Plan Echo 03/12: mod decr LVSF (35-39%). nl RV. L/KANDACE. mild AI. mibi 03/2019: large posterior lateral apical partially reversible defect c/w infarct with brandon-infarct ischemia tele: sinus, PACs, PVCs acute systolic HF exacerbation: - improved, lasix held for creat bump; lasix was held - dizziness resolved now - per patient baseline weight around 215 lbs, 210 lbs here. breathing at baseline - cont spironolactone 12.5 qd, bb - started entresto - recent echo with interval decline in EF vs prior (04/11 = low-nl). MIBI here with inf infarct and brandon-infarct ischemia, similar to 2008 (MIBI 2007 with inferior scar/no ischemia) - change lasix to 40 mg PO daily atypical CP: -sx's frequent, sporadic at rest. ? similar to prior remote angina (equivocal historian) -ecg non-ischemic, trop neg x 2 -MIBI here with inf infarct and brandon-infarct ischemia, similar to 2007 (MIBI 2007 with inferior scar/no ischemia). CAD (s/p [place], CABG 2003 (BECKHAM to LAD, SVG to LCX, SVG to PDA) - cont statin, bb, aspirin DM - manage per primary COPD - manage per primary pvcs: -asymptomatic. cont bb. stable for dc from cardiac perspective
[2019-04-17] MEDS ORDERED: FUROSEMIDE 40 MG TABLET (FP) PO SCH (10:00)
== END 2019-04-16 14:20 | disposition home or self-care (01) | DRG 293 ==
LOC: JER 22:29 → JERBED 23:38 → J4S 04-10 03:51 → OBSVTOIN 04-13 17:00
PROVIDERS: ADMIT Internal Medicine; ATTEND Internal Medicine
DX: I11.0 Hypertensive heart disease with heart failure (principal); J44.9 Chronic obstructive pulmonary disease, unspecified; I50.23 Acute on chronic systolic (congestive) heart failure; R07.89 Other chest pain; E78.5 Hyperlipidemia, unspecified; I25.10 Atherosclerotic heart disease of native coronary artery without angina pectoris; I25.2 Old myocardial infarction; M25.512 Pain in left shoulder; I25.6 Silent myocardial ischemia; N40.0 Benign prostatic hyperplasia without lower urinary tract symptoms; R06.02 Shortness of breath; I49.3 Ventricular premature depolarization; Z95.5 Presence of coronary angioplasty implant and graft; Z95.1 Presence of aortocoronary bypass graft
CPT/HCPCS: 36415; 71045-TC-FY; 78452-TC; 80048; 80053; 82962; 83036; 83880; 84484; 85025; 85651; 86140; 93005; 93010; 93017; 99284-25; A9502; G0378; J1644; J2785

== ENCOUNTER 2019-04-26 11:45 | Observation (INO) | payer OTHER, MEDICARE ==
[2019-04-26 12:00] VITALS: BMI 29.2
--- NOTE | 2019-04-26 12:07 | PDOC ---
Attending Attestation - Resident Resident Name: JeffryAdalberto - ED Attending Attestation I have performed the following: I have examined & evaluated the patient, The case was reviewed & discussed with the resident, I agree w/resident's findings & plan, Exceptions are as noted - HPI HPI: 04/26/19 12:22 Mr. Mesa is an 79 yo M who presents to the ER with a complaint of chest pain x 20 minutes He has a past medical history of COPD,HTN, HLD, prior [place], s/p CABG, CAD (s/p [place] , CABG 2003 -BECKHAM to LAD, SVG to LCX, SVG to PDA), PCI and stenting Pt is s/p admission in February and March for CHF (per patient baseline weight around 215 lbs) Pre reports chest pain that lasted 20 minutes and resolved No shortness of breath Pt is compliant with his medications He believes he is at his dry weight Otherwise feels well, no weakness, no PULIDO, no orthopnea 04/26/19 12:30 - Physicial Exam PE: 04/26/19 12:06 GENERAL: The patient is in no acute distress. ENT: Ears normal, nares patent, oropharynx clear without exudates. Moist mucous membranes. NECK: Normal range of motion, supple LUNGS: Breath sounds equal, clear to auscultation bilaterally. No wheezes, and no crackles. HEART:Regular rate and rhythm, normal S1 and S2 without murmur, rub or gallop. ABDOMEN: Soft, nontender, normoactive bowel sounds. EXTREMITIES: Normal range of motion, no edema. NEUROLOGICAL: Cranial nerves II through XII grossly intact. Normal speech. No focal neurological deficits. SKIN: Warm, Dry, normal turgor, no rashes or lesions noted. 04/26/19 13:17 - Medical Decision Making 04/26/19 12:05 EKG: NSR rate of 74 bpm, axis nml, intervals nml, no st elevation or depressions, t waves inverted II, III, aVF, otherwise upright 04/26/19 13:18 Laboratory Tests 04/16/19 04/26/19 04/26/19 11:45 12:30 12:30 WBC 11.8 H 12.1 H Hgb 14.1 14.8 Hct 41.7 44.1 Plt Count 293 292 INR BUN Creatinine Creatine Kinase 70 Troponin I < 0.02 04/26/19 04/26/19 12:30 12:30 WBC Hgb Hct Plt Count INR 1.04 BUN 23.0 H Creatinine 1.1 Creatine Kinase Troponin I 04/26/19 13:18 CXR - scoliosis, degenerative changes, linear atalectasis 04/26/19 14:[address] on observation
--- NOTE | 2019-04-26 12:24 | PDOC ---
History of Present Illness - General Chief Complaint: Chest Pain Stated Complaint: CHEST PAIN Time Seen by Provider: 04/26/19 12:05 History Source: Patient Exam Limitations: No Limitations - History of Present Illness Initial Comments: 04/26/19 14:17 79M with hx CAD, HTN, HLD, prior ND, s/p CABG, COPD, multiple cardiac stenting with recent admission for CHF exacerbation presents to the emergency department with complaints of chest pain that lasted for approximately 20 minutes. The onset of pain was approximately 30 minutes prior to presentation. The pain was located in the sternal region without radiation. The pain was "gnawing" in nature, 5/10 severity, without radiation, and no associated symptoms such as SOB. The pain resolved on its own. Per the patient, he is compliant with his medications and has had stable weights. Denies the following: fever, chills, nausea, vomiting, back pain, SOB, abdominal pain, dysuria, hematuria, leg pain/ swelling, and hematochezia. Allergies: NKDA Past History - Past Medical History Allergies/Adverse Reactions: Allergies Allergy/AdvReac Type Severity Reaction Status Date / Time No Known Allergies Allergy Verified 04/26/19 11:55 Home Medications: Ambulatory Orders Aspirin 81 mg PO DAILY 01/09/14 Carvedilol 12.5 mg PO BID tablet 01/09/14 Insulin Glargine,Hum.rec.anlog [Lantus] 60 unit SQ DAILY vial 01/09/14 Tamsulosin HCl [Flomax] 0.4 mg PO BID 01/09/14 Atorvastatin Ca [Lipitor] 40 mg PO HS 07/09/16 Tiotropium [place] [Spiriva] 18 mcg IH BID 02/28/19 Albuterol 0.083% Nebulizer Yari [Ventolin 0.083% Nebulizer Soln -] 1 amp NEB Q6H PRN #60 amp 03/07/19 Furosemide [Lasix -] 40 mg PO DAILY #30 tablet 04/16/19 Sacubitril/Valsartan [Entresto 49 mg-51 mg Tablet] 1 tab PO BID #60 tablet 04/16 Spironolactone [Aldactone -] 12.5 mg PO DAILY #30 tablet 04/16/19 predniSONE [Deltasone -] 10 mg PO DAILY #2 tablet 04/16/19 Finasteride 5 mg PO DAILY 04/26/19 Fluticasone/Umeclidin/Vilanter [Trelegy Ellipta 100-62.5-25] 1 each IH DAILY 08/10 Latanoprost 0.005% Eye Drops [Xalatan 0.005% Eye Drops -] 1 drop HS 04/26/19 Roflumilast [Daliresp] 500 mcg PO DAILY 04/26/19 Anemia: No Asthma: No Cancer: No Cardiac Disorders: Yes (TRIPLE BYPASS SURGERY 2005) CVA: No COPD: No CHF: No Dementia: No Diabetes: Yes GI Disorders: No Disorders: No HTN: Yes Hypercholesterolemia: Yes Liver Disease: No Seizures: No Thyroid Disease: No - Surgical History Cardiac Surgery: Yes (OPEN HEART SURGERY) - Immunization History Immunization Up to Date: Yes - Psycho Social/Smoking Cessation Hx Smoking History: Former smoker Have you smoked in the past 12 months: No If you are a former smoker, when did you quit?: 50 yrs ago Information on smoking cessation initiated: No Hx Alcohol Use: No Drug/Substance Use Hx: No Substance Use Type: None Hx Substance Use Treatment: No Review of Systems - Review of Systems Able to Perform ROS?: Yes Is the patient limited [place] proficient: No Constitutional: No: Chills, Diaphoresis, Fever, Weakness HEENTM: No: Eye Pain, Ear Pain, Nose Pain, Throat Pain, Mouth Pain Respiratory: No: Cough, Shortness of Breath, Hemoptysis Cardiac (ROS): Yes: Chest Pain. No: Lightheadedness, Palpitations ABD/GI: No: Constipated, Diarrhea, Nausea, Rectal Bleeding, Vomiting, Tarry Stools : No: Dysuria, Hematuria Musculoskeletal: No: Back Pain, Joint Pain, Neck Pain Integumentary: No: Bruising, Erythema, Rash Neurological: No: Headache, Tingling, Tremors Psychiatric: No: Change in Appetite Endocrine: No: Unexplained Weight Gain Hematologic/Lymphatic: No: Anemia *Physical Exam - Vital Signs Last Vital Signs Temp Pulse Resp BP Pulse Ox 97.9 F 89 26 H 93/52 L 96 04/26/19 11:58 04/26/19 11:58 04/26/19 11:58 04/26/19 11:58 04/26/19 11:58 - Physical Exam General Appearance: Yes: Nourished, Appropriately Dressed. No: Apparent Distress, Intoxicated HEENT: positive: EOMI, HELIO, Normal Voice, Symmetrical, Pharynx Normal, Hearing Grossly Normal. negative: Pale Conjunctivae, Scleral Icterus (R), Scleral Icterus (L), Muffled/Hoarse voice, Pharyngeal Erythema, Tonsillar Exudate, Tonsillar Erythema, Nasal Congestion, Rhinorrhea, Excessive drooling Neck: positive: Trachea midline, Supple. negative: Tender, Lymphadenopathy (R) , Lymphadenopathy (L), Tender lateral, Tender midline Respiratory/Chest: positive: Lungs Clear, Normal Breath Sounds. negative: Chest Tender, Respiratory Distress, Accessory Muscle Use, Rhonchi, Stridor, Wheezing Cardiovascular: positive: Regular Rhythm, Regular Rate, S1, S2. negative: Systolic Murmur Gastrointestinal/Abdominal: positive: Normal Bowel Sounds, Flat, Soft. negative : Tender Lymphatic: negative: Adenopathy Musculoskeletal: positive: Normal Inspection. negative: CVA Tenderness, Vertebral Tenderness Extremity: positive: Normal Capillary Refill, Normal Range of Motion, Swelling ( at baseline for LE edema. Chronically has more edema on left leg). negative: Tender Integumentary: positive: Normal Color, Dry, Warm. negative: Swelling Neurologic: positive: hedge trimmer II-XII NML intact, Fully Oriented, Alert, Normal Mood/ Affect, Normal Response, Motor Strength 5/5. negative: EOM Palsy, Facial Droop , Sensory Deficit Heart Score/ECG Review - History History: Moderately suspicious - Electrocardiogram EKG: Non specific repolarization disturbance - Age Age: >/= 65 - Risk Factors Risk Factors Heart Score: Yes Hx Hypercholesterolemia, Yes Hx Hypertension, Yes Hx Diabetes, Yes Smoking History Based on the list above the patient has:: >/=3 risk factors or Hx atherosclerotic disease - Troponin Troponin: </= normal limit - Score Heart Score - Total: 6 ED Treatment Course - LABORATORY CBC & Chemistry Diagram: 04/26/19 12:30 04/27/19 12:48 Medical Decision Making - Medical Decision Making 79M with hx CAD, HTN, HLD, prior ND, s/p CABG, COPD, multiple cardiac stenting with recent admission for CHF exacerbation presents to the emergency department with complaints of chest pain that lasted for approximately 20 minutes. Initial vitals: Initial Vital Signs Temp Pulse Resp BP Pulse Ox 97.9 F 89 26 H 93/52 L 96 04/26/19 11:58 12/03/19 11:58 04/26/19 11:58 04/26/19 11:58 04/26/19 11:58 Work up: ddx: ACS work up. rule out PNA. Laboratory Tests 04/26/19 04/26/19 04/26/19 12:30 12:30 12:30 WBC 12.1 H RBC 4.85 Hgb 14.8 Hct 44.1 MCV 90.9 MCH 30.5 MCHC 33.6 RDW 14.2 Plt Count 292 MPV 10.1 Absolute Neuts (auto) 9.6 H Neutrophils % 79.5 Lymphocytes % 12.9 D Monocytes % 6.2 Eosinophils % 0.1 D Basophils % 1.3 Nucleated RBC % 0 PT with INR INR PTT (Actin FS) Sodium 137 Potassium 5.2 H Chloride 104 Carbon Dioxide 23 Anion Gap 9 BUN 23.0 H Creatinine 1.1 Est GFR (CKD-EPI)AfAm 73.09 Est GFR (CKD-EPI)NonAf 63.07 Random Glucose 156 H Calcium 8.8 Total Bilirubin 1.0 AST 19 ALT 24 Alkaline Phosphatase 82 Creatine Kinase 70 Troponin I < 0.02 Total Protein 6.3 L Albumin 3.5 04/26/19 12:30 WBC RBC Hgb Hct MCV MCH MCHC RDW Plt Count MPV Absolute Neuts (auto) Neutrophils % Lymphocytes % Monocytes % Eosinophils % Basophils % Nucleated RBC % PT with INR 12.30 INR 1.04 PTT (Actin FS) 31.4 Sodium Potassium Chloride Carbon Dioxide Anion Gap BUN Creatinine Est GFR (CKD-EPI)AfAm Est GFR (CKD-EPI)NonAf Random Glucose Calcium Total Bilirubin AST ALT Alkaline Phosphatase Creatine Kinase Troponin I Total Protein Albumin EKG shows NSR with ventricular rate of [address] elevations or depressions. TWI noted in II, III, and aVF. CXR shows no acute process. Troponin is negative. Given the patient's significant cardiac history, will require observation admission on telemetry to be evaluated by cardiology. Dispo: Admit Discharge - Discharge Information Problems reviewed: Yes Clinical Impression/Diagnosis: CAD (coronary artery disease), Chest pain, rule out acute myocardial infarction - Follow up/Referral - Patient Discharge Instructions - Post Discharge Activity
[2019-04-26 12:45] LABS: BASO % 1.3 % (0-2.0); EOS % 0.1 % (0-4.5); HEMATOCRIT 44.1 % (35.4-49); HEMOGLOBIN 14.8 GM/dL (11.7-16.9); LYMPH % 12.9 % (8-40); MCH 30.5 pg (25.7-33.7); MCHC 33.6 g/dl (32.0-35.9); MEAN CELL VOLUME 90.9 fl (80-96); MEAN PLT VOLUME 10.1 fl (7.5-11.1); MONO % 6.2 % (3.8-10.2); NEUT % 79.5 % (42.8-82.8); PLATELET COUNT 292 K/MM3 (134-434); RBC 4.85 M/mm3 (4.00-5.60); RDW 14.2 % (11.9-15.9); WHITE BLOOD COUNT 12.1 K/mm3 (4.0-10.0)
[2019-04-26 13:01] LABS: INR 1.04 (0.83-1.09); PROTHROMBIN TIME (PATIENT) 12.3 SEC (9.7-13.0)
[2019-04-26 13:03] LABS: ACTIVATED PTT 31.4 SECONDS (25.2-36.5)
[2019-04-26 13:11] LABS: ALBUMIN 3.5 g/dl (3.4-5.0); CALCIUM 8.8 mg/dL (8.5-10.1); CREATININE 1.1 mg/dL (0.55-1.3); POTASSIUM 5.2 mmol/L (3.5-5.1); TOT PROT 6.3 g/dl (6.4-8.2)
[2019-04-26] MEDS ORDERED: ALBUTEROL SO4 0.083% IH SOL 2.5 MG/3 ML VIAL.NEB. NEB PRN (15:20)
--- NOTE | 2019-04-26 15:23 | HP ---
Admitting History and Physical - Primary Care Physician PCP: Primo Jacobsen - Admission Chief Complaint: chest pain History of Present Illness: ER HISTROY HPI HPI: 04/26/19 12:22 Mr. Mesa is an 79 yo M who presents to the ER with a complaint of chest pain x 20 minutes He has a past medical history of COPD,HTN, HLD, prior [place], s/p CABG, CAD (s/p [place] , CABG 2003 -BECKHAM to LAD, SVG to LCX, SVG to PDA), PCI and stenting Pt is s/p admission in February and March for CHF (per patient baseline weight around 215 lbs) Pre reports chest pain that lasted 20 minutes and resolved No shortness of breath Pt is compliant with his medications He believes he is at his dry weight Otherwise feels well, no weakness, no PULIDO, no orthopnea Pt examined by me-- known to me from previous admission He c/o sternal chest pain -- sharp pain in center of chest - while he was driving yesterday No radiation Lasted till he drove himself to the ER here No dizziness, SOB he had a recent stress test -- was abnormal but was same as the one he had in 2007 per Cardiology History Source: Patient Limitations to Obtaining History: No Limitations - Past Medical History Cardiovascular: Yes: CAD (s/p triple bypass,), CHF, HTN, Hyperlipdemia, Other ( cardiac arrhythmia) Pulmonary: Yes: COPD Renal/: Yes: BPH Endocrine: Yes: Diabetes Mellitus - Past Surgical History Past Surgical History: Yes: Bypass (TRIPLE BYPASS SURGERY 2005) - Smoking History Smoking history: Former smoker Have you smoked in the past 12 months: No If you are a former smoker, when did you quit?: 50 yrs ago - Alcohol/Substance Use Hx Alcohol Use: No History of Substance Use: reports: None - Social History ADL: Independent History of Recent Travel: No Home Medications - Allergies Allergies/Adverse Reactions: Allergies Allergy/AdvReac Type Severity Reaction Status Date / Time No Known Allergies Allergy Verified 04/26/19 11:55 - Home Medications Home Medications: Ambulatory Orders Aspirin 81 mg PO DAILY 01/09/14 Carvedilol 12.5 mg PO BID tablet 01/09/14 Insulin Glargine,Hum.rec.anlog [Lantus] 60 unit SQ DAILY vial 08/18/14 Tamsulosin HCl [Flomax] 0.4 mg PO BID 01/09/14 Atorvastatin Ca [Lipitor] 40 mg PO HS 07/09/16 Tiotropium [place] [Spiriva] 18 mcg IH BID 02/28/19 Albuterol 0.083% Nebulizer [place] [Ventolin 0.083% Nebulizer Soln -] 1 amp NEB Q6H PRN #60 amp 03/07/19 Furosemide [Lasix -] 40 mg PO DAILY #30 tablet 04/16/19 Sacubitril/Valsartan [Entresto 49 mg-51 mg Tablet] 1 tab PO BID #60 tablet 04/16 Spironolactone [Aldactone -] 12.5 mg PO DAILY #30 tablet 04/16/19 predniSONE [Deltasone -] 10 mg PO DAILY #2 tablet 04/16/19 Finasteride 5 mg PO DAILY 04/26/19 Fluticasone/Umeclidin/Vilanter [Trelegy Ellipta 100-62.5-25] 1 each IH DAILY 08/10 Latanoprost 0.005% Eye Drops [Xalatan 0.005% Eye Drops -] 1 drop HS 04/26/19 Roflumilast [Daliresp] 500 mcg PO DAILY 04/26/19 Review of Systems - Review of Systems Constitutional: denies: Chills Cardiovascular: reports: Chest Pain. denies: Edema, Palpitations, Shortness of Breath Physical Examination Vital Signs: Vital Signs Temperature 97.9 F 04/26/19 11:58 Pulse Rate 75 04/26/19 13:41 Respiratory Rate 18 04/26/19 13:41 Blood Pressure 104/51 L 04/26/19 13:41 O2 Sat by Pulse Oximetry (%) 96 04/26/19 13:41 Constitutional: Yes: No Distress, Calm Cardiovascular: Yes: Regular Rate and Rhythm Respiratory: Yes: Diminished. No: Rales, Rhonchi, SOB, SOB on Exertion, Wheezes Gastrointestinal: Yes: Normal Bowel Sounds, Soft, Abdomen, Obese. No: Tenderness Edema: No Psychiatric: Yes: Alert, Oriented Labs: CBC, BMP 04/26/19 12:30 04/26/19 12:30 Imaging - Results Chest X-ray: Image Reviewed (minimal congestion) EKG: Image Reviewed (NSR) Problem List - Problems (1) CAD (coronary artery disease) Code(s): I25.10 - ATHSCL HEART DISEASE OF [place] CORONARY ARTERY W/O ANG PCTRS (2) COPD (chronic obstructive pulmonary disease) Code(s): J44.9 - CHRONIC OBSTRUCTIVE PULMONARY DISEASE, UNSPECIFIED (3) Chest pain, rule out acute myocardial infarction Code(s): R07.9 - CHEST PAIN, UNSPECIFIED (4) Diabetes Code(s): E11.9 - TYPE 2 DIABETES MELLITUS WITHOUT COMPLICATIONS (5) HLD (hyperlipidemia) Code(s): E78.5 - HYPERLIPIDEMIA, UNSPECIFIED (6) HTN (hypertension) Code(s): I10 - ESSENTIAL (PRIMARY) HYPERTENSION Assessment/Plan PLAN Not in volume overload continue with meds cardiology eval cardiac enzymes to be checked Tele monitoring monitor lytes taper predisone
[2019-04-26] MEDS: INSULIN SLIDING SCALE (NOVOLOG) 1 VIAL SQ SCH (17:11)
[2019-04-26] MEDS ORDERED: PT OWN MED DRAWER 7, Y5N ONE (21:06)
[2019-04-26] MEDS: CARVEDILOL 25 MG TABLET (FP) PO SCH (21:11)
[2019-04-26] MEDS: TAMSULOSIN HCL 0.4 MG CAP PO SCH (21:12)
[2019-04-26] MEDS ORDERED: ATORVASTATIN CA 20 MG TABLET (FP) PO SCH (22:00)
[2019-04-26] MEDS: SACUBITRIL/VALSARTAN 49 MG-51 MG TABLET PO SCH (22:32)
[2019-04-27] MEDS ORDERED: SODIUM CHLORIDE 250 ML IV STA (02:00)
[2019-04-27] MEDS: INSULIN SLIDING SCALE (NOVOLOG) 1 VIAL SQ SCH ×3 (07:00→17:01)
[2019-04-27] MEDS ORDERED: INSULIN (LEVEMIR) 100 UNITS/ML UNITS SQ SCH (07:00)
[2019-04-27 07:46] LABS: CHOLESTEROL 130 mg/dL (50-200); HDL CHOLESTEROL 33 mg/dL (40-60); LDL CHOLESTEROL (ONLY SJRH) 77 mg/dL (5-100); TRIGLYCERIDES 171 mg/dL (0-150)
[2019-04-27] MEDS ORDERED: FINASTERIDE 5 MG TABLET (FP) PO SCH (10:00)
[2019-04-27] MEDS ORDERED: ROFLUMILAST 500 MCG TABLET PO SCH (10:00)
[2019-04-27] MEDS ORDERED: ASPIRIN 81 MG CHEWABLE TABLETS PO SCH (10:00)
[2019-04-27] MEDS ORDERED: TIOTROPIUM BROMIDE 2.5 MCG (SPIRIVA) RESPIMAT INHALER IH SCH (10:00)
[2019-04-27] MEDS ORDERED: predniSONE 10 MG TABLET (UD) PO SCH (10:00)
[2019-04-27] MEDS ORDERED: FUROSEMIDE 40 MG TABLET (FP) PO SCH (10:00)
[2019-04-27] MEDS ORDERED: SPIRONOLACTONE 25 MG TABLET (FP) PO SCH (10:00)
[2019-04-27] MEDS ORDERED: PT OWN MED DRAWER 7, Y5N ONE (10:04)
[2019-04-27] MEDS: CARVEDILOL 25 MG TABLET (FP) PO SCH (10:10)
[2019-04-27] MEDS: TAMSULOSIN HCL 0.4 MG CAP PO SCH (10:11)
[2019-04-27] MEDS: SACUBITRIL/VALSARTAN 49 MG-51 MG TABLET PO SCH (10:12)
--- NOTE | 2019-04-27 10:38 | EKG ---
Test Reason : Blood Pressure : / mmHG Vent. Rate : 074 BPM Atrial Rate : 074 BPM P-R Int : 156 ms QRS Dur : 114 ms QT Int : 374 ms P-R-T Axes : 018 030 -13 degrees QTc Int : 415 ms NORMAL SINUS RHYTHM NORMAL ECG WHEN COMPARED WITH ECG OF 11-APR-2019 12:14, PREMATURE VENTRICULAR COMPLEXES ARE NO LONGER PRESENT QT HAS SHORTENED Confirmed by ELANA LAYTON, CARLOS ([id number]) on 04/27/2019 10:38:05 AM Referred By: Confirmed By:CARLOS HUITRON MD
--- NOTE | 2019-04-27 11:55 | PN ---
Progress Note (short form) - Note Progress Note: No chest pain no distress feels well ambulating fine no sob Vital Signs - 24 hr 04/26/19 04/26/19 04/26/19 12:20 13:41 15:15 Temperature Pulse Rate Pulse Rate [ 75 77 Apical] Respiratory 18 20 Rate Blood Pressure Blood Pressure 104/51 L 108/71 [Right Arm] O2 Sat by Pulse 96 96 96 Oximetry (%) 04/26/19 04/26/19 04/26/19 17:16 18:26 18:41 Temperature 97.5 F L Pulse Rate 74 Pulse Rate [ 73 Apical] Respiratory 20 Rate Blood Pressure 119/74 Blood Pressure 113/62 [Right Arm] O2 Sat by Pulse 96 97 Oximetry (%) 04/26/19 04/27/19 04/27/19 21:00 02:00 06:00 Temperature 97.6 F 97.7 F 97.5 F L Pulse Rate 75 94 H 83 Pulse Rate [ Apical] Respiratory 20 18 20 Rate Blood Pressure 129/70 80/40 L 101/51 L Blood Pressure [Right Arm] O2 Sat by Pulse 95 Oximetry (%) 04/27/19 08:25 Temperature Pulse Rate 85 Pulse Rate [ Apical] Respiratory 189 H Rate Blood Pressure 133/44 L Blood Pressure [Right Arm] O2 Sat by Pulse Oximetry (%) Current Medications Generic Name Dose Route Start Last Admin Trade Name Freq PRN Reason Stop Dose Admin Albuterol Sulfate 1 amp 04/26/19 15:20 Ventolin 0.083% Nebulizer Soln - NEB Q6H PRN SHORT OF BREATH/WHEEZING Aspirin 81 mg 04/27/19 10:00 04/27/19 10:11 Asa - PO 81 mg DAILY RIKKI Administration Atorvastatin Calcium 40 mg 04/26/19 22:00 04/26/19 21:11 Lipitor - PO 40 mg HS RIKKI Administration Carvedilol 12.5 mg 04/26/19 22:00 04/27/19 10:10 Coreg - PO 12.5 mg BID RIKKI Administration Finasteride 5 mg 04/27/19 10:00 04/27/19 10:11 Proscar - PO 5 mg DAILY RIKKI Administration Furosemide 40 mg 04/27/19 10:00 04/27/19 10:11 Lasix - PO 40 mg DAILY RIKKI Administration Insulin Aspart 1 vial 04/26/19 16:30 04/27/19 11:47 Novolog Vial Sliding Scale - SQ 4 unit TIDAC RIKKI Administration Protocol Insulin Detemir 60 units 04/27/19 07:00 04/27/19 07:02 Levemir Vial SQ 60 units DAILY@0700 RIKKI Administration Non-Formulary Medication 1 each 04/27/19 10:00 Fluticasone/Umeclidin/Vilanter [Trelegy Ellipta 100-62.5-25] IH DAILY RIKKI Prednisone 5 mg 04/27/19 12:03 Deltasone - PO DAILY RIKKI Roflumilast 500 mcg 04/27/19 10:00 04/27/19 11:32 Daliresp PO 500 mcg DAILY RIKKI Administration Sacubitril/Valsartan 1 tab 04/26/19 22:00 04/27/19 10:12 Entresto 49 Mg-51 Mg Tablet PO 1 tab BID RIKKI Administration Sodium Polystyrene Sulfonate 15 gm 04/27/19 12:03 Kayexalate - PO 04/27/19 12:04 ONCE ONE Spironolactone 12.5 mg 04/27/19 10:00 04/27/19 10:11 Aldactone - PO 12.5 mg DAILY RIKKI Administration Tamsulosin HCl 0.4 mg 04/26/19 22:00 04/27/19 10:11 Flomax - PO 0.4 mg BID RIKKI Administration Tiotropium [place] 2 puff 04/27/19 10:00 04/27/19 11:33 Spiriva Respimat IH 2 puff DAILY RIKKI Administration Laboratory Results - last 24 hr 04/26/19 04/26/19 04/26/19 12:30 12:30 12:30 WBC 12.1 H RBC 4.85 Hgb 14.8 Hct 44.1 MCV 90.9 MCH 30.5 MCHC 33.6 RDW 14.2 Plt Count 292 MPV 10.1 Absolute Neuts (auto) 9.6 H Neutrophils % 79.5 Lymphocytes % 12.9 D Monocytes % 6.2 Eosinophils % 0.1 D Basophils % 1.3 Nucleated RBC % 0 PT with INR INR PTT (Actin FS) Sodium 137 Potassium 5.2 H Chloride 104 Carbon Dioxide 23 Anion Gap 9 BUN 23.0 H Creatinine 1.1 Est GFR (CKD-EPI)AfAm 73.09 Est GFR (CKD-EPI)NonAf 63.07 POC Glucometer Random Glucose 156 H Calcium 8.8 Total Bilirubin 1.0 AST 19 ALT 24 Alkaline Phosphatase 82 Creatine Kinase 70 Troponin I < 0.02 Total Protein 6.3 L Albumin 3.5 Triglycerides Cholesterol Total LDL Cholesterol HDL Cholesterol 04/26/19 04/26/19 04/26/19 12:30 17:09 17:15 WBC RBC Hgb Hct MCV MCH MCHC RDW Plt Count MPV Absolute Neuts (auto) Neutrophils % Lymphocytes % Monocytes % Eosinophils % Basophils % Nucleated RBC % PT with INR 12.30 INR 1.04 PTT (Actin FS) 31.4 Sodium Potassium Chloride Carbon Dioxide Anion Gap BUN Creatinine Est GFR (CKD-EPI)AfAm Est GFR (CKD-EPI)NonAf POC Glucometer 172 Random Glucose Calcium Total Bilirubin AST ALT Alkaline Phosphatase Creatine Kinase 58 Troponin I < 0.02 Total Protein Albumin Triglycerides Cholesterol Total LDL Cholesterol HDL Cholesterol 04/26/19 04/27/19 04/27/19 20:45 06:02 07:00 WBC RBC Hgb Hct MCV MCH MCHC RDW Plt Count MPV Absolute Neuts (auto) Neutrophils % Lymphocytes % Monocytes % Eosinophils % Basophils % Nucleated RBC % PT with INR INR PTT (Actin FS) Sodium Potassium Chloride Carbon Dioxide Anion Gap BUN Creatinine Est GFR (CKD-EPI)AfAm Est GFR (CKD-EPI)NonAf POC Glucometer 110 Random Glucose Calcium Total Bilirubin AST ALT Alkaline Phosphatase Creatine Kinase 59 Troponin I < 0.02 Total Protein Albumin Triglycerides 171 H Cholesterol 130 Total LDL Cholesterol 77 HDL Cholesterol 33 L 04/27/19 11:45 WBC RBC Hgb Hct MCV MCH MCHC RDW Plt Count MPV Absolute Neuts (auto) Neutrophils % Lymphocytes % Monocytes % Eosinophils % Basophils % Nucleated RBC % PT with INR INR PTT (Actin FS) Sodium Potassium Chloride Carbon Dioxide Anion Gap BUN Creatinine Est GFR (CKD-EPI)AfAm Est GFR (CKD-EPI)NonAf POC Glucometer 214 Random Glucose Calcium Total Bilirubin AST ALT Alkaline Phosphatase Creatine Kinase Troponin I Total Protein Albumin Triglycerides Cholesterol Total LDL Cholesterol HDL Cholesterol S1 s2 RRR Lungs no ronchi or rales Abd- soft, NT no tenderness to chest wall no edema PLAN cardiac enzymes x 3 negative Tele noted cardiology eval He had abnormal stress test recently though it was the same since 2007, will talk to cardiology about further management especially since he had chestpain Problem List - Problems (1) CAD (coronary artery disease) Code(s): I25.10 - ATHSCL HEART DISEASE OF [place] CORONARY ARTERY W/O ANG PCTRS (2) COPD (chronic obstructive pulmonary disease) Code(s): J44.9 - CHRONIC OBSTRUCTIVE PULMONARY DISEASE, UNSPECIFIED (3) Chest pain, rule out acute myocardial infarction Code(s): R07.9 - CHEST PAIN, UNSPECIFIED (4) Diabetes Code(s): E11.9 - TYPE 2 DIABETES MELLITUS WITHOUT COMPLICATIONS (5) HLD (hyperlipidemia) Code(s): E78.5 - HYPERLIPIDEMIA, UNSPECIFIED (6) HTN (hypertension) Code(s): I10 - ESSENTIAL (PRIMARY) HYPERTENSION
[2019-04-27] MEDS ORDERED: predniSONE 5 MG TABLET (UD) PO SCH (12:03)
[2019-04-27] MEDS ORDERED: SODIUM POLYSTYRENE SULFONATE 15 GM/60 ML BOTTLE PO ONE (12:03)
[2019-04-27 14:00] LABS: BLOOD UREA NITROGEN 25.5 mg/dL (7-18); CALCIUM 8.5 mg/dL (8.5-10.1); CREATININE 1.2 mg/dL (0.55-1.3); POTASSIUM 4.9 mmol/L (3.5-5.1)
[2019-04-27] MEDS ORDERED: CARVEDILOL 25 MG TABLET (FP) PO SCH (14:40)
[2019-04-27 14:46] VITALS: BP 90/59; PULSE 80; TEMP 97.7
--- NOTE | 2019-04-27 15:45 | CON.CARD ---
Cardiology Consult (text) - Consultation Consultation Note: Chief Complaint: cp History of Present Illness: 79M h/o CAD s/p NM, CABG 2003 (BECKHAM to LAD, SVG to LCX, SVG to PDA), HTN, HLD, DM p/w cp. Yesterday was at rest and felt central sharp cp. No associated sxs or radiation. No sob palps dizzy loc pnd orthopnea le edema. Resolved in 15 mins. Came to er for eval. Feels well, no further cp, asking to go home. - Past Medical History Cardio/Vascular: Yes: CAD (s/p triple bypass,), CHF, HTN, Hyperlipdemia, Other ( cardiac arrhythmia) Pulmonary: Yes: COPD Renal/: Yes: BPH Endocrine: Yes: Diabetes Mellitus - Past Surgical History Past Surgical History: Yes: Bypass (TRIPLE BYPASS SURGERY 2005) - Alcohol/Substance Use Hx Alcohol Use: No History of Substance Use: reports: None - Smoking History Smoking history: Former smoker Have you smoked in the past 12 months: No If you are a former smoker, when did you quit?: 50 yrs ago - Social History ADL: Independent History of Recent Travel: No Home Medications - Allergies Allergies/Adverse Reactions: Allergies Allergy/AdvReac Type Severity Reaction Status Date / Time No Known Allergies Allergy Verified 04/26/19 11:55 Home Medications Medication Instructions Recorded Aspirin 81 mg PO DAILY 01/09/14 Carvedilol 12.5 mg PO BID tablet 01/09/14 Insulin Glargine,Hum.rec.anlog 60 unit SQ DAILY vial 01/09/14 [Lantus] Tamsulosin HCl [Flomax] 0.4 mg PO BID 01/09/14 Atorvastatin Ca [Lipitor] 40 mg PO HS 07/09/16 Tiotropium [place] [Spiriva] 18 mcg IH BID 02/28/19 Albuterol 0.083% Nebulizer [place] 1 amp NEB Q6H PRN #60 amp 03/07/19 [Ventolin 0.083% Nebulizer Soln -] Furosemide [Lasix -] 40 mg PO DAILY #30 tablet 04/16/19 Sacubitril/Valsartan [Entresto 49 1 tab PO BID #60 tablet 04/16/19 mg-51 mg Tablet] Spironolactone [Aldactone -] 12.5 mg PO DAILY #30 tablet 04/16/19 predniSONE [Deltasone -] 10 mg PO DAILY #2 tablet 04/16/19 Finasteride 5 mg PO DAILY 04/26/19 Fluticasone/Umeclidin/Vilanter 1 each IH DAILY 04/26/19 [Trelegy Ellipta 100-62.5-25] Latanoprost 0.005% Eye Drops 1 drop HS 04/26/19 [Xalatan 0.005% Eye Drops -] Roflumilast [Daliresp] 500 mcg PO DAILY 04/26/19 Family Medical History Family History: Unremarkable Review of Systems - Review of Systems Constitutional: reports: No Symptoms Eyes: reports: No Symptoms HENT: reports: No Symptoms Neck: reports: No Symptoms Respiratory: reports: No Symptoms Gastrointestinal: reports: No Symptoms Genitourinary: reports: No Symptoms Musculoskeletal: reports: No Symptoms Integumentary: reports: No Symptoms Neurological: reports: No Symptoms Endocrine: reports: No Symptoms Hematology/Lymphatic: reports: No Symptoms Psychiatric: reports: No Symptoms Vital Signs: Vital Signs Period Temp Pulse Resp BP Sys/Souza Pulse Ox Last 24 Hr 97.5 F-97.7 F 73-94 18-189 80-133/40-74 95-98 Constitutional: Yes: No Distress, Calm Eyes: Yes: Conjunctiva Clear, EOM Intact HENT: Yes: Atraumatic, Normocephalic Neck: Yes: Supple, Trachea Midline Respiratory: Yes: Regular, CTA Bilaterally Gastrointestinal: Yes: Normal Bowel Sounds, Soft Cardiovascular: Yes: Pulse Irregular JVD: No Heart Sounds: Yes: S1, S2 Extremities: No: Cold Edema: no Integumentary: No: Jaundice Neurological: Yes: Alert, Oriented Psychiatric: No: Agitated Laboratory Last Values WBC 12.1 K/mm3 (4.0-10.0) H 04/26/19 12:30 RBC 4.85 M/mm3 (4.00-5.60) 04/26/19 12:30 Hgb 14.8 GM/dL (11.7-16.9) 04/26/19 12:30 Hct 44.1 % (35.4-49) 04/26/19 12:30 MCV 90.9 fl (80-96) 04/26/19 12:30 MCH 30.5 pg (25.7-33.7) 04/26/19 12:30 MCHC 33.6 g/dl (32.0-35.9) 04/26/19 12:30 RDW 14.2 % (11.9-15.9) 04/26/19 12:30 Plt Count 292 K/MM3 (134-434) 04/26/19 12:30 MPV 10.1 fl (7.5-11.1) 04/26/19 12:30 Absolute Neuts (auto) 9.6 K/mm3 (1.5-8.0) H 04/26/19 12:30 Neutrophils % 79.5 % (42.8-82.8) 04/26/19 12:30 Lymphocytes % 12.9 % (8-40) D 04/26/19 12:30 Monocytes % 6.2 % (3.8-10.2) 04/26/19 12:30 Eosinophils % 0.1 % (0-4.5) D 04/26/19 12:30 Basophils % 1.3 % (0-2.0) 04/26/19 12:30 Nucleated RBC % 0 % (0-0) 04/26/19 12:30 PT with INR 12.30 SEC (9.7-13.0) 04/26/19 12:30 INR 1.04 (0.83-1.09) 04/26/19 12:30 PTT (Actin FS) 31.4 SECONDS (25.2-36.5) 04/26/19 12:30 Sodium 137 mmol/L (136-145) 04/27/19 12:48 Potassium 4.9 mmol/L (3.5-5.1) 04/27/19 12:48 Chloride 104 mmol/L (98-107) 04/27/19 12:48 Carbon Dioxide 26 mmol/L (21-32) 04/27/19 12:48 Anion Gap 7 MMOL/L (8-16) L 04/27/19 12:48 BUN 25.5 mg/dL (7-18) H 04/27/19 12:48 Creatinine 1.2 mg/dL (0.55-1.3) 04/27/19 12:48 Est GFR (CKD-EPI)AfAm 65.79 04/27/19 12:48 Est GFR (CKD-EPI)NonAf 56.77 04/27/19 12:48 POC Glucometer 214 UNITS (80-120) 04/27/19 11:45 Random Glucose 182 mg/dL (74-106) H 04/27/19 12:48 Calcium 8.5 mg/dL (8.5-10.1) 04/27/19 12:48 Total Bilirubin 1.0 mg/dL (0.2-1) 04/26/19 12:30 AST 19 U/L (15-37) 04/26/19 12:30 ALT 24 U/L (13-61) 04/26/19 12:30 Alkaline Phosphatase 82 U/L (45-117) 04/26/19 12:30 Creatine Kinase 59 U/L (26-308) 04/26/19 20:45 Troponin I < 0.02 ng/ml (0.00-0.05) 04/26/19 20:45 Total Protein 6.3 g/dl (6.4-8.2) L 04/26/19 12:30 Albumin 3.5 g/dl (3.4-5.0) 04/26/19 12:30 Triglycerides 171 mg/dL (0-150) H 04/27/19 07:00 Cholesterol 130 mg/dL (50-200) 04/27/19 07:00 Total LDL Cholesterol 77 mg/dL (5-100) 04/27/19 07:00 HDL Cholesterol 33 mg/dL (40-60) L 04/27/19 07:00 Assessment/Plan Echo 03/12: mod decr LVSF (35-39%). nl RV. L/KANDACE. mild AI. mibi 03/2019: large posterior lateral apical partially reversible defect c/w infarct with brandon-infarct ischemia ecg: sr nl intervals no ischemic changes tele: sinus, occ PVCs chronic syst chf: -stable vol status. cont lasix 40 po qd, aldactone 12.5 qd, coreg 25 bid, entresto 59-51 bid atypical CP: -sx's frequent, sporadic at rest. -ecg non-ischemic, trop neg x 3 -recent MIBI here with inf infarct and brandon-infarct ischemia, similar to 2008 ( MIBI 2007 with inferior scar/no ischemia). -symptoms atypical and recent low risk mibi but given his cad hx and recurrent sxs, rec'd that he have cardiac cath. Currently pt declines, says he will go home and d/w his family first. Cont current cardiac meds. Pt told to return to er if sxs return. CAD (s/p NM, CABG 2003 (BECKHAM to LAD, SVG to LCX, SVG to PDA) - cont statin, bb, aspirin DM - manage per primary COPD - manage per primary pvcs: -asymptomatic. cont bb. cardiac rojas ok for dc
--- NOTE | 2019-04-27 16:00 | DS ---
Physical Examination Vital Signs: Vital Signs Temperature 97.7 F 04/27/19 14:00 Pulse Rate 80 04/27/19 14:00 Respiratory Rate 20 04/27/19 14:00 Blood Pressure 90/59 L 04/27/19 14:00 O2 Sat by Pulse Oximetry (%) 98 04/27/19 09:00 Constitutional: Yes: No Distress, Calm Cardiovascular: Yes: Regular Rate and Rhythm Respiratory: Yes: CTA Bilaterally Gastrointestinal: Yes: Normal Bowel Sounds, Soft Labs: CBC, BMP 04/26/19 12:30 04/27/19 12:48 Discharge Summary Problems reviewed: Yes Reason For Visit: CORONARY ARTERY DISEASE Hospital Course: admitted for chest pain Cardiac enzymes negative Pt is better denies chest pain Spoke with cardiology-- recommending cardiac cath -->he wants to speak with family first-->ok to be discharged home-->follow up with Dr Herrera Condition: Improved - Instructions Referrals: Howard Nguyen MD [Primary Care Provider] - Corbin Herrera MD [Staff Physician] - Disposition: HOME - Home Medications Comprehensive Discharge Medication List: Ambulatory Orders Aspirin 81 mg PO DAILY 01/09/14 Carvedilol 12.5 mg PO BID tablet 01/09/14 Insulin Glargine,Hum.rec.anlog [Lantus] 60 unit SQ DAILY vial 01/09/14 Tamsulosin HCl [Flomax] 0.4 mg PO BID 01/09/14 Atorvastatin Ca [Lipitor] 40 mg PO HS 07/09/16 Tiotropium [place] [Spiriva] 18 mcg IH BID 02/28/19 Albuterol 0.083% Nebulizer Yari [Ventolin 0.083% Nebulizer Soln -] 1 amp NEB Q6H PRN #60 amp 03/07/19 Furosemide [Lasix -] 40 mg PO DAILY #30 tablet 04/16/19 Sacubitril/Valsartan [Entresto 49 mg-51 mg Tablet] 1 tab PO BID #60 tablet 04/16 Spironolactone [Aldactone -] 12.5 mg PO DAILY #30 tablet 04/16/19 predniSONE [Deltasone -] 10 mg PO DAILY #2 tablet 04/16/19 Finasteride 5 mg PO DAILY 04/26/19 Fluticasone/Umeclidin/Vilanter [Trelegy Ellipta 100-62.5-25] 1 each IH DAILY 08/10 Latanoprost 0.005% Eye Drops [Xalatan 0.005% Eye Drops -] 1 drop HS 04/26/19 Roflumilast [Daliresp] 500 mcg PO DAILY 04/26/19
== END 2019-04-27 18:00 | disposition home or self-care (01) ==
LOC: JER 11:45 → JERBED 14:38 → J4S 18:36
PROVIDERS: ADMIT Internal Medicine; ATTEND Internal Medicine
PROC: 3E0F7GC Introduction of Other Therapeutic Substance into Respiratory Tract, Via Natural or Artificial Opening (ICD-10-PCS; principal; 2019-04-26)
PROC: 3E0337Z Introduction of Electrolytic and Water Balance Substance into Peripheral Vein, Percutaneous Approach (ICD-10-PCS; 2019-04-26)
PROC: 3E013VG Introduction of Insulin into Subcutaneous Tissue, Percutaneous Approach (ICD-10-PCS; 2019-04-26)
PROC: 3E013VG Introduction of Insulin into Subcutaneous Tissue, Percutaneous Approach (ICD-10-PCS; 2019-04-26)
DX: R07.9 Chest pain, unspecified (principal); I25.10 Atherosclerotic heart disease of native coronary artery without angina pectoris; I11.0 Hypertensive heart disease with heart failure; Z95.1 Presence of aortocoronary bypass graft; Z95.5 Presence of coronary angioplasty implant and graft; Z87.891 Personal history of nicotine dependence; I50.22 Chronic systolic (congestive) heart failure; I49.3 Ventricular premature depolarization; E78.5 Hyperlipidemia, unspecified; E11.9 Type 2 diabetes mellitus without complications; Z79.4 Long term (current) use of insulin; J44.9 Chronic obstructive pulmonary disease, unspecified; N40.0 Benign prostatic hyperplasia without lower urinary tract symptoms
CPT/HCPCS: 36415; 71046-TC-FY; 80048; 80053; 80061; 82550; 82962; 83721; 84484; 85025; 85610; 85730; 93005; 93010; 94640; 96360; 96372; 99285-25; G0378

== ENCOUNTER 2023-06-10 12:03 | Observation (INO) | payer OTHER, MEDICARE ==
[2023-06-10 12:22] VITALS: BMI 29.7
[2023-06-10 13:37] LABS: BASO % 0.7 % (0-2.0); EOS % 0.3 % (0-4.5); HEMATOCRIT 42.9 % (35.4-49); HEMOGLOBIN 14.2 GM/dL (11.7-16.9); LYMPH % 13.7 % (8-40); MCH 29.5 pg (25.7-33.7); MCHC 33.2 g/dl (32.0-35.9); MEAN CELL VOLUME 88.8 fl (80-96); MEAN PLT VOLUME 10.7 fl (7.5-11.1); NEUT % 78.3 % (42.8-82.8); PLATELET COUNT 271 10^3/uL (134-434); RBC 4.83 M/mm3 (4.00-5.60); RDW 14.2 % (11.9-15.9); WHITE BLOOD COUNT 8.8 K/mm3 (4.0-10.0)
[2023-06-10 13:44] LABS: INR 1.05 (0.83-1.09); PROTHROMBIN TIME (PATIENT) 12.2 SEC (9.7-13.0)
[2023-06-10 13:47] LABS: ACTIVATED PTT 31.2 SECONDS (25.2-36.5)
[2023-06-10 14:21] LABS: POTASSIUM 4.6 mmol/L (3.5-5.1)
[2023-06-10 14:24] LABS: ALBUMIN 3.3 g/dl (3.4-5.0); BLOOD UREA NITROGEN 39.6 mg/dL (7-18); CALCIUM 8.7 mg/dL (8.5-10.1)
[2023-06-10 14:28] LABS: BILIRUBIN,TOTAL 1.1 mg/dL (0.2-1); CREATININE 1.3 mg/dL (0.55-1.3); TOT PROT 6.2 g/dl (6.4-8.2)
[2023-06-10] MEDS ORDERED: NITROGLYCERIN SUBLINGUAL 1/150 0.4 MG TAB SL PRN (17:43)
[2023-06-10] MEDS: ASPIRIN 81 MG CHEWABLE TABLETS PO SCH (17:46)
[2023-06-10] MEDS ORDERED: ASPIRIN 81 MG CHEWABLE TABLETS ONE (17:47)
[2023-06-10] MEDS ORDERED: ATORVASTATIN CA 80 MG TABLET (FP) PO SCH (22:00)
[2023-06-10] MEDS ORDERED: CARVEDILOL 25 MG TABLET (FP) PO SCH (22:00)
[2023-06-10] MEDS: INSULIN ASPART SLIDING SCALE (NOVOLOG) 1 VIAL SQ SCH (22:11)
[2023-06-10] MEDS ORDERED: CARVEDILOL 3.125 MG TABLET (FP) ONE (22:22)
[2023-06-10] MEDS ORDERED: TAMSULOSIN HCL 0.4 MG CAP ONE (22:22)
[2023-06-10] MEDS ORDERED: ATORVASTATIN CA 80 MG TABLET (FP) ONE (22:22)
[2023-06-10] MEDS: SACUBITRIL/VALSARTAN 49 MG-51 MG TABLET PO SCH (22:30)
[2023-06-10] MEDS: CARVEDILOL 3.125 MG TABLET (FP) PO SCH (22:30)
[2023-06-10] MEDS: TAMSULOSIN HCL 0.4 MG CAP PO SCH (22:30)
[2023-06-11 06:58] LABS: BASO % 0.7 % (0-2.0); EOS % 0.4 % (0-4.5); HEMATOCRIT 42.4 % (35.4-49); HEMOGLOBIN 14.4 GM/dL (11.7-16.9); LYMPH % 21.4 % (8-40); MCH 30.1 pg (25.7-33.7); MCHC 33.9 g/dl (32.0-35.9); MEAN CELL VOLUME 88.8 fl (80-96); MEAN PLT VOLUME 10.2 fl (7.5-11.1); MONO % 8.2 % (3.8-10.2); NEUT % 69.3 % (42.8-82.8); PLATELET COUNT 245 10^3/uL (134-434); RBC 4.78 M/mm3 (4.00-5.60)
[2023-06-11 07:02] LABS: POTASSIUM 3.9 mmol/L (3.5-5.1)
[2023-06-11 07:06] LABS: ALBUMIN 3.2 g/dl (3.4-5.0); BLOOD UREA NITROGEN 35.5 mg/dL (7-18); CALCIUM 8.9 mg/dL (8.5-10.1)
[2023-06-11 07:07] LABS: MAGNESIUM 2.8 mg/dL (1.8-2.4)
[2023-06-11 07:09] LABS: CREATININE 1.2 mg/dL (0.55-1.3)
[2023-06-11 07:11] LABS: BILIRUBIN,TOTAL 1.3 mg/dL (0.2-1); TOT PROT 6.2 g/dl (6.4-8.2)
[2023-06-11 07:14] LABS: CHOLESTEROL 122 mg/dL (50-200)
[2023-06-11 07:16] LABS: LDL CHOLESTEROL (ONLY SJRH) 72 mg/dL (5-100)
[2023-06-11 07:18] LABS: HDL CHOLESTEROL 35 mg/dL (40-60)
[2023-06-11] MEDS ORDERED: INSULIN (NOVOLOG) ASPART 100 UNITS/ML 10ML VIAL ONE (07:28)
[2023-06-11] MEDS: TAMSULOSIN HCL 0.4 MG CAP PO SCH (07:42)
[2023-06-11] MEDS: INSULIN ASPART SLIDING SCALE (NOVOLOG) 1 VIAL SQ SCH ×2 (07:42→13:27)
[2023-06-11] MEDS ORDERED: FLUTICASONE/UMECLIDIN/VILANTER(100-62.5-25 TRELEGY ELLIPTA) INAHLER IH SCH (10:00)
[2023-06-11] MEDS ORDERED: SPIRONOLACTONE 25 MG TABLET PO SCH (10:00)
[2023-06-11] MEDS ORDERED: ENOXAPARIN NA (PORCINE) 40 MG/0.4 ML DISP.SYRIN SQ SCH (10:00)
[2023-06-11] MEDS ORDERED: FUROSEMIDE 40 MG TABLET (FP) PO SCH (10:00)
[2023-06-11] MEDS ORDERED: EMPAGLIFLOZIN (JARDIANCE) 10 MG TABLET PO SCH (10:00)
[2023-06-11] MEDS: SACUBITRIL/VALSARTAN 49 MG-51 MG TABLET PO SCH (10:22)
[2023-06-11] MEDS: CARVEDILOL 3.125 MG TABLET (FP) PO SCH (10:22)
[2023-06-11] MEDS: ASPIRIN 81 MG CHEWABLE TABLETS PO SCH (10:22)
[2023-06-11 15:35] VITALS: BP 107/67; PULSE 72; RESP 20; TEMP 98.6
== END 2023-06-11 15:50 | disposition home or self-care (01) ==
LOC: JER 12:03 → JERBED 14:41
PROVIDERS: ADMIT Internal Medicine
PROC: 3E013VG Introduction of Insulin into Subcutaneous Tissue, Percutaneous Approach (ICD-10-PCS; principal; 2023-06-10)
PROC: 3E013GC Introduction of Other Therapeutic Substance into Subcutaneous Tissue, Percutaneous Approach (ICD-10-PCS; 2023-06-10)
PROC: 3E0F7SF Introduction of Other Gas into Respiratory Tract, Via Natural or Artificial Opening (ICD-10-PCS; 2023-06-10)
DX: R07.89 Other chest pain (principal); E80.7 Disorder of bilirubin metabolism, unspecified; I11.0 Hypertensive heart disease with heart failure; I50.22 Chronic systolic (congestive) heart failure; E11.9 Type 2 diabetes mellitus without complications; E78.5 Hyperlipidemia, unspecified; J43.9 Emphysema, unspecified; I25.10 Atherosclerotic heart disease of native coronary artery without angina pectoris; I25.2 Old myocardial infarction; Z95.1 Presence of aortocoronary bypass graft; Z95.5 Presence of coronary angioplasty implant and graft; H91.90 Unspecified hearing loss, unspecified ear; H26.9 Unspecified cataract
CPT/HCPCS: 0241U-QW; 36415; 71045-TC-FY; 80053; 80061; 82962; 83036; 83735; 84100; 84484; 85025; 85610; 85730; 93005; 93010; 93306-TC; 93970-TC; 94640; 96372; 99285-25; G0378